=== PATIENT | male | born 1940 | race Caucasian/White ===

== ENCOUNTER 2018-04-23 19:02 | Emergency (ER) | payer OTHER ==
--- NOTE | 2018-04-23 20:35 | EDPHYS ---
Physician Documentation [facility] Name: John Matias Age: 77 yrs Sex: Male : 1940 Arrival Date: 04/23/2018 Time: 19:04 Bed 25 Private MD: Cameron Sorenson ED Physician Toby Deng HPI: 04/23 20:29 This 77 yrs old Male presents to ER via Ambulatory with complaints of Blood ps1 Pressure Problem. 20:29 patient has long history of blood pressure. On medications. No symptoms. Concerned ps1 because BP [address] Sorenson. . Historical: - Allergies: 19:20 No Known Allergies; aj - Home Meds: 19:20 oxcarbazepine 300 mg oral tab 1 tab 2 times per day [Active]; loratadine 10 mg oral tab aj 1 tab once daily [Active]; pravastatin 40 mg oral tab 1 tab once daily [Active]; losartan 100 mg oral tab 1 tab once daily [Active]; - PMHx: 19:20 CVA; Hypertension; aj - Immunization history:: Adult Immunizations up to date. - Social history:: Smoking status: Patient/guardian denies using tobacco. - Ebola Screening: : Patient negative for fever greater than or equal to 101.5 degrees Fahrenheit, and additional compatible Ebola Virus Disease symptoms Patient denies exposure to infectious person Patient denies travel to an Ebola-affected area in the 21 days before illness onset No symptoms or risks identified at this time. ROS: 20:29 Constitutional: Negative for fever, chills, and weight loss, Eyes: Negative for injury, ps1 pain, redness, and discharge, Cardiovascular: Negative for chest pain, palpitations, and edema, Respiratory: Negative for shortness of breath, cough, wheezing, and pleuritic chest pain, Abdomen/GI: Negative for abdominal pain, nausea, vomiting, diarrhea, and constipation, MS/Extremity: Negative for injury and deformity, Skin: Negative for injury, rash, and discoloration, Neuro: Negative for headache, weakness, numbness, tingling, and seizure, Psych: Negative for depression, anxiety, suicide ideation, homicidal ideation, and hallucinations. Exam: 20:29 Constitutional: This is a well developed, well nourished patient who is awake, alert, ps1 and in no acute distress. Head/Face: Normocephalic, atraumatic. Eyes: Pupils equal round and reactive to light, extra-ocular motions intact. Lids and lashes normal. Conjunctiva and sclera are non-icteric and not injected. Chest/axilla: Normal chest wall appearance and motion. Nontender with no deformity. No lesions are appreciated. Cardiovascular: Regular rate and rhythm. No gallops, murmurs, or rubs. Normal PMI, no JVD. No pulse deficits. Respiratory: Lungs have equal breath sounds bilaterally, clear to auscultation and percussion. No rales, rhonchi or wheezes noted. No increased work of breathing, no retractions or nasal flaring. Abdomen/GI: Soft, non-tender, with normal bowel sounds. No distension or tympany. No guarding or rebound. No evidence of tenderness throughout. Skin: Warm, dry with normal turgor. Normal color with no rashes, no lesions, and no evidence of cellulitis. MS/ Extremity: Pulses equal, no cyanosis. Neurovascular intact. Full, normal range of motion. Neuro: Awake and alert, GCS 15, oriented to person, place, time, and situation. Cranial nerves II-XII grossly intact. Sensory grossly intact. Psych: Awake, alert, with orientation to person, place and time. Behavior, mood, and affect are within normal limits. Vital Signs: 19:20 BP 177 / 88; Pulse 76; Resp 15; Temp 98.5; Pulse Ox 96% on R/A; Weight 77.11 kg; Height aj 5 ft. 5 in. (165.10 cm); 19:40 BP 162 / 79; Pulse 74; Resp 18; Pulse Ox 100% ; tl3 20:47 BP 180 / 95; Pulse 61; Resp 18; Pulse Ox 98% on R/A; tl3 19:20 Body Mass Index 28.29 (77.11 kg, 165.10 cm) aj MDM: 20:29 Data reviewed: vital signs, nurses notes. Counseling: I had a detailed discussion with ps1 the patient and/or guardian regarding: the historical points, exam findings, and any diagnostic results supporting the discharge/admit diagnosis, the presence of at least one elevated blood pressure reading (>120/80) during this emergency department visit. 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 . 20:35 Patient medically screened. ps1 Administered Medications: No medications were administered Disposition: 04/23/18 20:35 Discharged to Home. Impression: Asymptomatic hypertension. - Condition is Stable. - Discharge Instructions: Hypertension. - Medication Reconciliation Form, Thank You Letter, Antibiotic Education, Prescription Opioid Use form. - Follow up: Cameron Sorenson MD; When: 1 week; Reason: Recheck today's complaints, Continuance of care, Re-evaluation by your physician. Follow up: Emergency Department; When: As needed; Reason: Worsening of condition. - Problem is chronic. - Symptoms have worsened. Signatures: Tanya Burden, RN RN aj Toby Deng MD MD ps1 Genny Rahman RN RN tl3 Corrections: (The following items were deleted from the chart) 20:48 20:35 04/23/2018 20:35 Discharged to Home. Impression: Asymptomatic hypertension. tl3 Condition is Stable. Forms are Medication Reconciliation Form, Thank You Letter, Antibiotic Education, Prescription Opioid Use. Follow up: Cameron Sorenson; When: 1 week; Reason: Recheck today's complaints, Continuance of care, Re-evaluation by your physician. Follow up: Emergency Department; When: As needed; Reason: Worsening of condition. Problem is chronic. Symptoms have worsened. ps1
--- NOTE | 2018-04-23 20:35 | ER ---
Nurse's Notes [facility] Name: John Matias Age: 77 yrs Sex: Male : 1940 Arrival Date: 04/23/2018 Time: 19:04 Bed 25 Private MD: Cameron Sorenson Diagnosis: Asymptomatic hypertension Presentation: 04/23 19:18 Presenting complaint: Patient states: High blood pressure readings at home. Transition aj of care: patient was not received from another setting of care. Onset of symptoms was April 21, 2018. Risk Assessment: Do you want to hurt yourself or someone else? Patient reports no desire to harm self or others. Initial Sepsis Screen: Does the patient meet any 2 criteria? No. Patient's initial sepsis screen is negative. Does the patient have a suspected source of infection? No. Patient's initial sepsis screen is negative. Care prior to arrival: None. 19:18 Method Of Arrival: Ambulatory aj 19:18 Acuity: AGATHA 3 aj Triage Assessment: 19:20 General: Appears in no apparent distress. comfortable, Behavior is calm, cooperative, aj appropriate for age. Pain: Denies pain. Neuro: Level of Consciousness is awake, alert, obeys commands, Oriented to person, place, time, situation, Appropriate for age. Respiratory: Airway is patent Respiratory effort is even, unlabored, Respiratory pattern is regular, symmetrical. Derm: Skin is intact, is healthy with good turgor, Skin is pink, warm \\T\\ dry. normal. Historical: - Allergies: 19:20 No Known Allergies; aj - Home Meds: 19:20 oxcarbazepine 300 mg oral tab 1 tab 2 times per day [Active]; loratadine 10 mg oral tab aj 1 tab once daily [Active]; pravastatin 40 mg oral tab 1 tab once daily [Active]; losartan 100 mg oral tab 1 tab once daily [Active]; - PMHx: 19:20 CVA; Hypertension; aj - Immunization history:: Adult Immunizations up to date. - Social history:: Smoking status: Patient/guardian denies using tobacco. - Ebola Screening: : Patient negative for fever greater than or equal to 101.5 degrees Fahrenheit, and additional compatible Ebola Virus Disease symptoms Patient denies exposure to infectious person Patient denies travel to an Ebola-affected area in the 21 days before illness onset No symptoms or risks identified at this time. Screenin:40 Abuse screen: Denies threats or abuse. Nutritional screening: No deficits noted. tl3 Tuberculosis screening: No symptoms or risk factors identified. Fall Risk None identified. Assessment: 19:40 General: Appears in no apparent distress. comfortable, slender, well groomed, well tl3 developed, well nourished, Behavior is calm, cooperative, appropriate for age. Pain: Denies pain. Neuro: Level of Consciousness is awake, alert, obeys commands. Cardiovascular: Patient's skin is warm and dry. Cardiovascular: Parent/caregiver reports patient has had reports that they have been watching TV today, eating snacks and checking the pts blood pressure, it was going up and down and the "bottom number was in the 90's " so they decided to come and get it checked out. Respiratory: Airway is patent Respiratory effort is even, unlabored, Respiratory pattern is regular, symmetrical. GI: No signs and/or symptoms were reported involving the gastrointestinal system. : No deficits noted. EENT: No signs and/or symptoms were reported regarding the EENT system. Derm: No signs and/or symptoms reported regarding the dermatologic system. Musculoskeletal: No signs and/or symptoms reported regarding the musculoskeletal system. 20:47 Reassessment: Patient appears in no apparent distress at this time. No changes from tl3 previously documented assessment. Patient and/or family updated on plan of care and expected duration. Pain level reassessed. Patient is alert, oriented x 3, equal unlabored respirations, skin warm/dry/pink. Vital Signs: 19:20 BP 177 / 88; Pulse 76; Resp 15; Temp 98.5; Pulse Ox 96% on R/A; Weight 77.11 kg; Height aj 5 ft. 5 in. (165.10 cm); 19:40 BP 162 / 79; Pulse 74; Resp 18; Pulse Ox 100% ; tl3 20:47 BP 180 / 95; Pulse 61; Resp 18; Pulse Ox 98% on R/A; tl3 19:20 Body Mass Index 28.29 (77.11 kg, 165.10 cm) aj ED Course: 19:04 Patient arrived in ED. am2 19:04 Cameron Sorenson MD is Private Physician. am2 19:18 Triage completed. aj 19:20 Arm band placed on right wrist. Patient placed in an exam room. aj 19:35 Genny Rahman, RN is Primary Nurse. tl3 19:40 Patient has correct armband on for positive identification. Bed in low position. Adult tl3 w/ patient. Pulse ox on. NIBP on. 19:40 No provider procedures requiring assistance completed. tl3 19:48 Toby Deng MD is Attending Physician. ps1 20:35 Cameron Sorenson MD is Referral Physician. ps1 20:47 Patient did not have IV access during this emergency room visit. tl3 Administered Medications: No medications were administered Outcome: 20:35 Discharge ordered by . ps1 20:47 Discharged to home ambulatory. tl3 20:47 Condition: stable 20:47 Discharge instructions given to patient, family, Instructed on discharge instructions, follow up and referral plans. Demonstrated understanding of instructions, follow-up care. 20:48 Patient left the ED. tl3 Signatures: Tanya Burden, RN RN Tanya Davila am2 Toby Deng MD MD ps1 Genny Rahman, RN RN tl3
[2018-04-23 20:57] VITALS: TEMP 98.5
[2018-04-23 20:59] VITALS: BP 180/95; O2SAT 98
== END 2018-04-23 20:48 | disposition home or self-care (01) ==
LOC: ER 19:02
DX: I10 Essential (primary) hypertension (principal)
CPT/HCPCS: 99283

== ENCOUNTER 2018-08-13 06:40 | Emergency (ER) | payer OTHER ==
[2018-08-13 07:49] LABS: ALT/SGPT 24 U/L (12-78); AST/SGOT 19 U/L (15-37); Albumin 3.5 g/dL (3.4-5.0); Alkaline Phosphatase 76 U/L (45-117); BUN Blood Urea Nitrogen 19 mg/dL (7-18); Bicarbonate 20 mmol/L (21-32); Bilirubin Direct 0.2 mg/dL (0-0.2); Bilirubin Total 0.6 mg/dL (0.2-1.0); CKMB Creatine Kinase MB 3.4 ng/mL (0.3-3.6); Creatine Phosphokinase 166 U/L (39-308); Glucose Level 131 mg/dL (74-106); Lipase 144 U/L (73-393); Potassium 3.6 mmol/L (3.5-5.1); Protein, Total 7.1 g/dL (6.4-8.2); Sodium Level 140 mmol/L (136-145); Troponin (Emerg Dept Use Only) < 0.02 ng/mL (0.0-0.045)
--- NOTE | 2018-08-13 07:59 | RAD REPORT ---
EXAM DESCRIPTION: CT - Head Brain Wo Cont - 08/13/2018 7:14 am CLINICAL HISTORY: SEIZURE History of CVA COMPARISON: HEAD BRAIN W O CONTRAST dated 09/12/2015; HEAD BRAIN W O CONTRAST dated 09/16/2009 TECHNIQUE: All CT scans are performed using dose optimization technique as appropriate and may inclu de automated exposure control or mA/KV adjustment according to patient size. FINDINGS: No intracranial hemorrhage, hydrocephalus or extra-axial fluid collection.Large area of gl iosis in the distribution of the left MCA noted, unchanged.No areas of brain edema or evidence of mid line shift. The paranasal sinuses and mastoids are clear. The calvarium is intact. IMPRESSION: No acute intracranial abnormality. 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
[2018-08-13 08:01] LABS: Absolute Lymphocytes (CBC) 1.6 K/uL (0.7-4.9); Absolute Monocytes 0.8 K/uL (0.1-1.3); Absolute Neutrophil 5.1 K/uL (1.8-8.0); Basophils % 0.7 % (0-1.3); Eosinophils % 3.3 % (0-4.4); Lymphocytes % 20.7 % (15.3-44.8); MCV 98.9 fL (80-100); MPV 9.1 fL (7.6-11.3); Monocytes % 10.7 % (3.3-12.3); RBC Red Blood Cell Count 4.45 M/uL (4.33-5.43)
[2018-08-13 08:05] LABS: Protime INR 0.99
[2018-08-13] MEDS ORDERED: NA CHLORIDE 0.9% 500 ML ONE (08:30)
--- NOTE | 2018-08-13 08:59 | ER ---
Nurse's Notes [facility] Name: John Matias Age: 78 yrs Sex: Male : 1940 Arrival Date: 08/13/2018 Time: 06:43 Bed 7 Private MD: Diagnosis: Convulsions, not elsewhere classified-seizure Presentation: 08/13 06:30 Presenting complaint: EMS states: EMS called to pt's home, pt's reported pt was ea sitting up in fell to the floor and started having a seizure, reported seizure lasted about 1 minute, reported last seizure was about 5 years ago. Transition of care: patient was not received from another setting of care. Onset of symptoms was August 13, 2018. Risk Assessment: Do you want to hurt yourself or someone else? Patient reports no desire to harm self or others. Initial Sepsis Screen: Does the patient meet any 2 criteria? No. Patient's initial sepsis screen is negative. Does the patient have a suspected source of infection? No. Patient's initial sepsis screen is negative. Care prior to arrival: None. 06:30 Method Of Arrival: EMS: [facility] ea 06:30 Acuity: AGATHA 3 ea Triage Assessment: 06:51 General: Appears in no apparent distress. Behavior is calm. Pain: Unable to use pain ea scale. FLACC scale score is 2 out of 10. Neuro: Level of Consciousness is groggy. Oriented to pt is aphasic. Neuro: Seizure activity reported prior to arrival. Seizure lasted approximately 1 minutes. Cardiovascular: Patient's skin is warm and dry. Respiratory: Airway is patent Respiratory effort is even, unlabored, Respiratory pattern is regular, symmetrical, Breath sounds are clear bilaterally. Derm: Skin is pale. Historical: - Allergies: 06:48 No Known Allergies; ea - Home Meds: 06:48 loratadine 10 mg Oral tab 1 tab once daily [Active]; losartan 100 mg Oral tab 1 tab ea once daily [Active]; oxcarbazepine 300 mg Oral tab 1 tab 2 times per day [Active]; pravastatin 40 mg Oral tab 1 tab once daily [Active]; - PMHx: 06:48 CVA; Hypertension; ea - Immunization history:: Adult Immunizations up to date. - Social history:: Smoking status: denies smoking. - Ebola Screening: : No symptoms or risks identified at this time. Screenin:56 Abuse screen: Denies threats or abuse. Nutritional screening: No deficits noted. ea Tuberculosis screening: No symptoms or risk factors identified. Fall Risk None identified. Assessment: 07:10 General: Appears in no apparent distress. comfortable, Behavior is calm, cooperative. ca1 Pain: Denies pain. Neuro: Level of Consciousness is awake, alert, obeys commands, Oriented to none Concrete Buster Operator are equal bilaterally Moves all extremities. Speech with expressive aphasia noted, Facial symmetry appears normal, Facial symmetry: tongue is midline, Pupils are PERRLA, Intact. Cardiovascular: Heart tones S1 S2 present Rhythm is regular. 07:10 Respiratory: Airway is patent Trachea midline Respiratory effort is even, unlabored, ca1 Respiratory pattern is regular, symmetrical, Breath sounds are clear bilaterally. GI: Abdomen is round Bowel sounds present X 4 quads. Abd is soft and non tender X 4 quads. : No signs and/or symptoms were reported regarding the genitourinary system. Derm: Skin is fragile, Skin is dry, Skin is Skin temperature is warm. Musculoskeletal: Circulation, motion, and sensation intact. 08:15 Reassessment: Patient appears in no apparent distress at this time. No neurologic ca1 changes from previous assessment. . 09:02 Reassessment: Patient appears in no apparent distress at this time. No change in ca1 neurologic symptoms. Informed of discharge by MD. Called family for discharge. . Vital Signs: 06:50 BP 163 / 73; Pulse 92; Resp 16; Temp 97(A); Pulse Ox 95% on R/A; Weight 72.57 kg; ea Height 6 ft. 2 in. (187.96 cm); 07:45 BP 132 / 92; Pulse 60; Resp 16; Pulse Ox 92% on R/A; ca1 09:11 BP 141 / 65; Pulse 56; Resp 16; Pulse Ox 96% on R/A; ca1 09:45 BP 142 / 75; Pulse 61; Resp 17 S; Pulse Ox 95% on R/A; ca1 06:50 Body Mass Index 20.54 (72.57 kg, 187.96 cm) ea Weston Coma Score: 06:51 Eye Response: spontaneous(4). Verbal Response: none(1). Motor Response: localizes ea pain(5). Total: 10. 06:51 pt aphasic ea ED Course: 06:43 Patient arrived in ED. ds1 06:46 Triage completed. ea 06:50 Funmi Kruse FNP-C [facility]. snw 06:50 Diaz Harrington MD is Attending Physician. snw 06:57 Arm band placed on right wrist. ea 06:57 Patient has correct armband on for positive identification. Bed in low position. Call ea light in reach. Side rails up X2. 07:00 Seizure precautions initiated. ca1 07:00 environmental monitoring specialist on. Pulse ox on. NIBP on. Door closed. Noise minimized. Warm blanket ca1 given. 07:08 Harmony Elizondo, RN is Primary Nurse. ca1 07:[address] via stretcher. ca1 07:15 CT Head Brain wo Cont In Process Unspecified. EDMS 07:20 Chest Single View XRAY In Process Unspecified. EDMS 07:20 Inserted saline lock: 18 gauge in left antecubital area, using aseptic technique. Blood ds4 collected. 07:28 EKG done, by ED staff, reviewed by Diaz Harrington MD. mh5 07:29 T\T\S Sent. mh5 07:29 Basic Metabolic Panel Sent. mh5 07:29 Blood Culture Adult (2) Sent. mh5 07:29 CBC with Diff Sent. mh5 07:29 Ckmb Sent. mh5 07:29 CPK Sent. mh5 07:29 Lactate Sent. mh5 07:29 LFT's Sent. mh5 07:29 Lipase Sent. mh5 07:29 Procalcitonin Sent. mh5 07:29 Protime (+inr) Sent. mh5 07:30 Ptt, Activated Sent. mh5 07:30 Troponin (emerg Dept Use Only) Sent. mh5 07:30 Urine Microscopic Only Sent. mh5 08:20 Notified Nurse Practitioner and/or Physician Insurance Sales Specialist of a critical lab result(s), ca1 Lactate 5.6. 09:45 No provider procedures requiring assistance completed. IV discontinued, intact, ca1 bleeding controlled, No redness/swelling at site. Pressure dressing applied. Administered Medications: 08:30 Drug: NS 0.9% 500 ml Route: IV; Rate: bolus; Site: left antecubital; ca1 08:45 Follow up: IV Status: Completed infusion; IV Intake: 500ml ca1 Point of Care Testing: Blood Glucose: 07:37 Blood Glucose: 123 mg/dL; mh5 Ranges: Intake: 08:45 IV: 500ml; Total: 500ml. ca1 Outcome: 08:58 Discharge ordered by MD. luna 09:45 Discharged to home via wheelchair, with . ca1 09:45 Condition: stable 09:45 Discharge instructions given to patient, Instructed on discharge instructions, follow up and referral plans. Demonstrated understanding of instructions, follow-up care. 10:07 Patient left the ED. ca1 Signatures: Dispatcher [employer] EDMS Funmi Kruse, AIRCRAFT MAINTENANCE INSTRUCTOR-C AIRCRAFT MAINTENANCE INSTRUCTOR-Csnw Ashwini Hay ds1 Aureliano Harrell ds4 Chloé Campa 5 Laila Vásquez RN RN ea Acob, Cheryl, RN RN ca1 Corrections: (The following items were deleted from the chart) 09:13 08:15 Reassessment: Patient appears in no apparent distress at this time. . ca1 ca1
--- NOTE | 2018-08-13 08:59 | EDPHYS ---
Physician Documentation [facility] Name: John Matias Age: 78 yrs Sex: Male : 1940 Arrival Date: 08/13/2018 Time: 06:43 Bed 7 Private MD: ED Physician Diaz Harrington HPI: 08/13 06:58 This 78 yrs old Male presents to ER via EMS with complaints of Seizure. snw 06:58 The patient presents after having a single isolated seizure. Character of seizure(s): snw Loss of consciousness: the patient did not lose consciousness, Motor activity: generalized, Incontinence: none, Apnea: the patient did not experience apnea, Circulation: the patient did not experience evidence of pulse disturbance. Seizure onset: this morning. Context: the seizure(s) was witnessed, by family, , occurred at home. Seizure Hx: Last seizure: The patient's last seizure was approximately 3 year(s) ago, CVA 9 yrs ago. Associated injury: The patient did not suffer any apparent associated injury. EMS care: supplemental oxygen. The patient has experienced a previous episode. It is unknown whether or not the patient has recently seen a physician. Historical: - Allergies: 06:48 No Known Allergies; ea - Home Meds: 06:48 loratadine 10 mg Oral tab 1 tab once daily [Active]; losartan 100 mg Oral tab 1 tab ea once daily [Active]; oxcarbazepine 300 mg Oral tab 1 tab 2 times per day [Active]; pravastatin 40 mg Oral tab 1 tab once daily [Active]; - PMHx: 06:48 CVA; Hypertension; ea - Immunization history:: Adult Immunizations up to date. - Social history:: Smoking status: denies smoking. - Ebola Screening: : No symptoms or risks identified at this time. ROS: 06:57 Constitutional: Negative for fever, chills, and weight loss, Eyes: Negative for injury, snw pain, redness, and discharge, ENT: Negative for injury, pain, and discharge, Neck: Negative for injury, pain, and swelling, Cardiovascular: Negative for chest pain, palpitations, and edema, Respiratory: Negative for shortness of breath, cough, wheezing, and pleuritic chest pain, Abdomen/GI: Negative for abdominal pain, nausea, vomiting, diarrhea, and constipation, Back: Negative for injury and pain, : Negative for injury, bleeding, discharge, and swelling, MS/Extremity: Negative for injury and deformity, Skin: Negative for injury, rash, and discoloration. 06:57 Neuro: Positive for seizure activity, per Spouse, EMS toned, EMS states pt is much more alert on arrival to ED. Exam: 06:53 Head/Face: Normocephalic, atraumatic. Eyes: Pupils equal round and reactive to light, snw extra-ocular motions intact. Lids and lashes normal. Conjunctiva and sclera are non-icteric and not injected. Cornea within normal limits. Periorbital areas with no swelling, redness, or edema. ENT: Nares patent. No nasal discharge, no septal abnormalities noted. Tympanic membranes are normal and external auditory canals are clear. Oropharynx with no redness, swelling, or masses, exudates, or evidence of obstruction, uvula midline. Mucous membranes moist. Neck: Trachea midline, no thyromegaly or masses palpated, and no cervical lymphadenopathy. Supple, full range of motion without nuchal rigidity, or vertebral point tenderness. No Meningismus. Chest/axilla: Normal chest wall appearance and motion. Nontender with no deformity. No lesions are appreciated. Cardiovascular: Regular rate and rhythm with a normal S1 and S2. No gallops, murmurs, or rubs. Normal PMI, no JVD. No pulse deficits. Respiratory: Lungs have equal breath sounds bilaterally, clear to auscultation and percussion. No rales, rhonchi or wheezes noted. No increased work of breathing, no retractions or nasal flaring. 06:53 Constitutional: The patient appears awake, blinking, non communicative at this time 06:56 Abdomen/GI: Soft, non-tender, with normal bowel sounds. No distension or tympany. No snw guarding or rebound. No evidence of tenderness throughout. Back: No spinal tenderness. No costovertebral tenderness. Full range of motion. Skin: Warm, dry with normal turgor. Normal color with no rashes, no lesions, and no evidence of cellulitis. MS/ Extremity: Pulses equal, no cyanosis. Neurovascular intact. Full, normal range of motion. 06:56 Neuro: Orientation: unable to test, the patient is post-ictal, Mentation: slow to respond, Memory: unable to test, the patient is post-ictal, Sensation: is normal, seizure activity, is not displayed by the patient, is not currently displayed, but the patient is post-ictal. Vital Signs: 06:50 BP 163 / 73; Pulse 92; Resp 16; Temp 97(A); Pulse Ox 95% on R/A; Weight 72.57 kg; ea Height 6 ft. 2 in. (187.96 cm); 07:45 BP 132 / 92; Pulse 60; Resp 16; Pulse Ox 92% on R/A; ca1 09:11 BP 141 / 65; Pulse 56; Resp 16; Pulse Ox 96% on R/A; ca1 09:45 BP 142 / 75; Pulse 61; Resp 17 S; Pulse Ox 95% on R/A; ca1 06:50 Body Mass Index 20.54 (72.57 kg, 187.96 cm) ea Wayne Coma Score: 06:51 Eye Response: spontaneous(4). Verbal Response: none(1). Motor Response: localizes ea pain(5). Total: 10. 06:51 pt aphasic ea MDM: 06:53 Patient medically screened. snw 11:22 Data reviewed: vital signs, nurses notes. Data interpreted: Pulse oximetry: on room air snw is 95 %. Interpretation: acceptable. Counseling: I had a detailed discussion with the patient and/or guardian regarding: the historical points, exam findings, and any diagnostic results supporting the discharge/admit diagnosis, the presence of at least one elevated blood pressure reading (>120/80) during this emergency department visit, lab results, radiology results, the need for outpatient follow up, to return to the emergency department if symptoms worsen or persist or if there are any questions or concerns that arise at home. Special discussion: Based on the history and exam findings, there is no indication for further emergent testing or inpatient evaluation. I discussed with the patient/guardian the need to see the neurologist for further evaluation of the symptoms. I discussed with the patient/guardian the need to see the primary care provider for further evaluation of the symptoms. 08/13 06:52 Order name: T\T\S; Complete Time: 09:24 snw 08/13 06:52 Order name: Basic Metabolic Panel; Complete Time: 08:18 snw 08/13 06:52 Order name: Blood Culture Adult (2) snw 12/09 06:52 Order name: CBC with Diff; Complete Time: 08:18 snw 08/13 06:52 Order name: Ckmb; Complete Time: 08:18 snw 08/13 06:52 Order name: CPK; Complete Time: 08:18 snw 08/13 06:52 Order name: Lactate; Complete Time: 08:18 snw 08/13 06:52 Order name: LFT's; Complete Time: 08:18 snw 08/13 06:52 Order name: Lipase; Complete Time: 08:18 snw 08/13 06:52 Order name: Procalcitonin snw 08/13 06:52 Order name: Protime (+inr); Complete Time: 08:18 snw 08/13 06:52 Order name: Ptt, Activated; Complete Time: 08:18 snw 08/13 06:52 Order name: Troponin (emerg Dept Use Only); Complete Time: 08:18 snw 08/13 06:52 Order name: Chest Single View XRAY w 08/13 06:52 Order name: Accucheck; Complete Time: 08:05 snw 08/13 06:52 Order name: Cardiac monitoring; Complete Time: 07:17 snw 08/13 06:52 Order name: EKG - Nurse/Tech; Complete Time: 08:05 snw 08/13 06:52 Order name: IV Saline Lock - Large Bore; Complete Time: 08:05 snw 08/13 06:52 Order name: Labs collected and sent; Complete Time: 08:05 snw 08/13 06:52 Order name: O2 Per Protocol; Complete Time: 08:05 snw 08/13 06:52 Order name: O2 Sat Monitoring; Complete Time: 08:05 snw 08/13 06:52 Order name: CT Head Brain wo Cont; Complete Time: 08:18 snw 08/13 06:52 Order name: Seizure Precautions; Complete Time: 07:18 snw Administered Medications: 08:30 Drug: NS 0.9% 500 ml Route: IV; Rate: bolus; Site: left antecubital; ca1 08:45 Follow up: IV Status: Completed infusion; IV Intake: 500ml ca1 Point of Care Testing: Blood Glucose: 07:37 Blood Glucose: 123 mg/dL; mh5 Ranges: Critical Glucose Levels:Adult <50 mg/dl or >400 mg/dl <40 mg/dl or >180 mg/dl Disposition: 08/14 06:32 Co-signature as Attending Physician, Diaz Harrington MD I agree with the assessment and [facility] plan of care. Disposition: 08/13/18 08:58 Discharged to Home. Impression: Convulsions, not elsewhere classified - seizure. - Condition is Stable. - Discharge Instructions: Seizure, Adult. - Medication Reconciliation Form, Thank You Letter, Antibiotic Education, Prescription Opioid Use form. - Follow up: Private Physician; When: Tomorrow; Reason: Recheck today's complaints, Continuance of care, Re-evaluation by your physician. Follow up: Emergency Department; When: As needed; Reason: Worsening of condition. Signatures: Dispatcher [employer] EDMS Diaz Harrington MD MD cha Therrien, Shelly, TUBING ASSEMBLER-C TUBING ASSEMBLER-Csnw Laila Vásquez, RN RN ea Harmony Elizondo RN RN ca1 Corrections: (The following items were deleted from the chart) 08/13 06:57 06:53 Constitutional: The patient appears awake, snw snw 06:57 06:53 Abdomen/GI: Inspection: abdomen appears normal, Bowel sounds: normal, in all snw quadrants, suprapubic area with stoma, no noted signs of infection, no bleeding. 16F mcallister brought per EMS with balloon still intact. Replaced with 16F mcallister per photo technologist without difficulty. Cloudy urine returned, snw 10:07 08:58 08/13/2018 08:58 Discharged to Home. Impression: Convulsions, not elsewhere ca1 classified - seizure. Condition is Stable. Forms are Medication Reconciliation Form, Thank You Letter, Antibiotic Education, Prescription Opioid Use. Follow up: Private Physician; When: Tomorrow; Reason: Recheck today's complaints, Continuance of care, Re-evaluation by your physician. Follow up: Emergency Department; When: As needed; Reason: Worsening of condition. snw
[2018-08-13 10:12] VITALS: TEMP 97
[2018-08-13 10:17] VITALS: BP 132/92; O2SAT 92
--- NOTE | 2018-08-13 10:55 | RAD REPORT ---
EXAM DESCRIPTION: RAD - Chest Single View - 08/13/2018 7:21 am CLINICAL HISTORY: seizure Chest pain. COMPARISON: CHEST SINGLE VIEW dated 09/12/2015; CHEST SINGLE VIEW dated 08/24/2014; CHEST PA AND LAT 2 VIEW dated 01/27/2011; CHEST SINGLE VIEW dated 09/16/2009 FINDINGS: Portable technique limits examination quality. Patchy airspace opacity is present in the left lower lobe suspicious for infiltrate/pneumonia. Mild i nterstitial pulmonary edema is also suspected. The heart is normal in size. No displaced fractures. IMPRESSION: Patchy left lower lobe aspiration/developing pneumonia.
--- NOTE | 2018-08-14 11:37 | EKG ---
Test Date: 2018-08-13 Test Time: 07:25:54 Asphalt Plant Worker: MOY MEASUREMENT RESULTS: Intervals: Rate: 74 IA: 146 QRSD: 84 QT: 372 QTc: 412 [place]: P: 26 IA: 146 QRS: -31 T: 7 INTERPRETIVE STATEMENTS: Sinus rhythm with premature atrial complexes Left axis deviation Inferior infarct, age undetermined Anterior infarct, age undetermined Abnormal ECG Compared to ECG 09/13/2015 06:42:25 Atrial premature complex(es) now present Left-axis deviation now present Myocardial infarct finding now present Electronically Signed On 08-14-18 11:36:29 LOSS CONTROL MANAGER by James Finn
== END 2018-08-13 10:07 | disposition home or self-care (01) ==
LOC: ER 06:40
DX: R56.9 Unspecified convulsions (principal); I49.1 Atrial premature depolarization; R94.31 Abnormal electrocardiogram [ECG] [EKG]; I10 Essential (primary) hypertension; Z79.899 Other long term (current) drug therapy; Z86.73 Personal history of transient ischemic attack (TIA), and cerebral infarction without residual deficits
CPT/HCPCS: 36415; 70450; 71045; 80048; 80076; 82550; 82553; 82962; 83605; 83690; 84145; 84484; 85025; 85610; 85730; 86850; 86900; 86901; 87040; 93005; 99285

== ENCOUNTER 2019-04-23 21:53 | Emergency (ER) | payer OTHER ==
--- NOTE | 2019-04-23 23:51 | ER ---
Nurse's Notes [facility] Name: John Matias Age: 78 yrs Sex: Male : 1940 Arrival Date: 04/23/2019 Time: 21:57 Bed 23 Private MD: Cameron Sorenson Diagnosis: Fall on same level from slipping, tripping and stumbling Presentation: 04/23 22:09 Presenting complaint: states: HE HURT HIS RIGHT LEG LAST WEEK. I NOTICED HE WAS rv HAVING TROUBLE WALKING SINCE LAST WEEK. TODAY HE CAN'T WALK AT ALL. HE CAN STAND UP BUT STRUGGLING WITH VERY SMALL STEPS. HE HAD A STROKE BEFORE AND AFTER THAT HE HAD TROUBLE TALKING. HE IS DUE FOR APPOINTMENT ON TUESDAY BECAUSE HIS DOCTOR THINKS IT IS DEMENTIA. Transition of care: patient was not received from another setting of care. Onset of symptoms was April 23, 2019 at 08:00. Risk Assessment: Do you want to hurt yourself or someone else? Patient reports no desire to harm self or others. Initial Sepsis Screen: Does the patient meet any 2 criteria? No. Patient's initial sepsis screen is negative. Does the patient have a suspected source of infection? No. Patient's initial sepsis screen is negative. Care prior to arrival: None. 22:09 Method Of Arrival: Wheelchair rv 22:09 Acuity: AGATHA 3 rv Triage Assessment: 22:19 Pain: Complains of pain in right leg and left leg. rv Historical: - Allergies: 22:19 No Known Allergies; rv - Home Meds: 22:18 oxcarbazepine 300 mg Oral tab 1 tab 2 times per day [Active]; losartan 100 mg Oral tab rv 1 tab once daily [Active]; amlodipine 10 mg tab 1 tab once daily [Active]; pravastatin 40 mg Oral tab 1 tab once daily [Active]; - PMHx: 22:18 CVA; Hypertension; mg2 22:18 CVA; Hypertension; Seizures; rv - PSHx: 22:18 Cholecystectomy; Carotid surgery; rv - Immunization history:: Adult Immunizations up to date. - Social history:: Smoking status: Patient/guardian denies using tobacco, never smoked. - Ebola Screening: : No symptoms or risks identified at this time No symptoms or risks identified at this time. Screenin:16 Abuse screen: Denies threats or abuse. Denies injuries from another. Nutritional mg2 screening: No deficits noted. Tuberculosis screening: No symptoms or risk factors identified. Fall Risk Gait- Weak (10 pts.). Assessment: 22:15 General: Appears in no apparent distress. comfortable, Behavior is calm, cooperative. mg2 Neuro: Level of Consciousness is awake, alert, obeys commands, Oriented to. Cardiovascular: Capillary refill < 3 seconds Patient's skin is warm and dry. Respiratory: Airway is patent Respiratory effort is even, unlabored, Respiratory pattern is regular, symmetrical. GI: No signs and/or symptoms were reported involving the gastrointestinal system. : No signs and/or symptoms were reported regarding the genitourinary system. EENT: No signs and/or symptoms were reported regarding the EENT system. Derm: Skin is intact, is healthy with good turgor, Skin is pink, warm \T\ dry. normal. Musculoskeletal: Circulation, motion, and sensation intact. Capillary refill < 3 seconds. Vital Signs: 22:12 BP 146 / 88; Pulse 74; Resp 16; Temp 98.2; Pulse Ox 96% on R/A; Weight 77.11 kg (R); rv Height 5 ft. 5 in. (165.10 cm) (R); 04/24 00:03 BP 142 / 85; Pulse 76; Resp 16; Temp 98; Pulse Ox 97% on R/A; rv 04/23 22:12 Body Mass Index 28.29 (77.11 kg, 165.10 cm) rv ED Course: 04/23 21:57 Patient arrived in ED. cl3 21:58 Cameron Sorenson MD is Private Physician. cl3 22:01 Diaz Hooker PA is PHCP. cp 22:01 Diaz Harrington MD is Attending Physician. cp 22:02 Sudhakar Sanchez, MISHA is Primary Nurse. mg2 22:12 Triage completed. rv 22:14 Arm band placed on. mg2 22:15 No provider procedures requiring assistance completed. mg2 22:19 Patient has correct armband on for positive identification. Bed in low position. Call rv light in reach. Side rails up X 1. Adult w/ patient. phototypesetting equipment monitor on. Pulse ox on. NIBP on. 22:45 Hip Bilateral With Pelvis In Process Unspecified. EDMS 04/24 00:04 Patient did not have IV access during this emergency room visit. rv Administered Medications: No medications were administered Intake: Outcome: 04/23 23:50 Discharge ordered by . caitlyn 04/24 00:03 Discharged to home via wheelchair, with family. rv Condition: good Discharge instructions given to patient, family, Instructed on discharge instructions, follow up and referral plans. Demonstrated understanding of instructions, follow-up care. 00:04 Patient left the ED. rv Signatures: Dispatcher [employer] EDMS Diaz Hooker PA PA cp [place], Michele, RN RN mg2 Vicente, Ronaldo, RN RN rv Es Dey cl3
--- NOTE | 2019-04-23 23:52 | EDPHYS ---
Physician Documentation [facility] Name: John Matias Age: 78 yrs Sex: Male : 1940 Arrival Date: 04/23/2019 Time: 21:57 Bed 23 Private MD: Cameron Sorenson ED Physician Diaz Harrington HPI: 04/23 22:35 This 78 yrs old Male presents to ER via Wheelchair with complaints of Leg cp Pain. 22:35 Details of fall: The patient fell from an upright position, while walking. cp 22:35 Associated injuries: The patient sustained left leg, painful injury. Severity of cp symptoms: in the emergency department the symptoms are unchanged. reports she has noticed patient with unsteady gait since recent falls. reports patient fell again today and landed on left side. Historical: - Allergies: 22:19 No Known Allergies; rv - Home Meds: 22:18 oxcarbazepine 300 mg Oral tab 1 tab 2 times per day [Active]; losartan 100 mg Oral tab rv 1 tab once daily [Active]; amlodipine 10 mg tab 1 tab once daily [Active]; pravastatin 40 mg Oral tab 1 tab once daily [Active]; - PMHx: 22:18 CVA; Hypertension; mg2 22:18 CVA; Hypertension; Seizures; rv - PSHx: 22:18 Cholecystectomy; Carotid surgery; rv - Immunization history:: Adult Immunizations up to date. - Social history:: Smoking status: Patient/guardian denies using tobacco, never smoked. - Ebola Screening: : No symptoms or risks identified at this time No symptoms or risks identified at this time. ROS: 22:45 Constitutional: Negative for body aches, chills, fever, poor PO intake. cp 22:45 Eyes: Negative for injury, pain, redness, and discharge. cp 22:45 ENT: Negative for drainage from ear(s), ear pain, sore throat, difficulty swallowing, difficulty handling secretions. 22:45 Neck: Negative for pain with movement, pain at rest, stiffness, bony tenderness. 22:45 Cardiovascular: Negative for chest pain, palpitations. 22:45 Respiratory: Negative for cough. 22:45 Abdomen/GI: Negative for abdominal pain. 22:45 Back: Negative for decreased range of motion. 22:45 MS/extremity: Negative for decreased range of motion, deformity. 22:45 Neuro: Positive for gait disturbance, Negative for altered mental status. 22:45 All other systems are negative. Exam: 22:50 Constitutional: The patient appears in no acute distress, alert, awake, cp non-diaphoretic, well developed, well nourished. 22:50 Head/Face: Normocephalic, atraumatic. cp 22:50 Eyes: Periorbital structures: appear normal, Conjunctiva: normal, Lids and lashes: appear normal, bilaterally. 22:50 ENT: External ear(s): are unremarkable, Nose: is normal, Mouth: is normal. 22:50 Neck: C-spine: vertebral tenderness, is not appreciated, crepitus, is not appreciated. 22:50 Chest/axilla: Inspection: normal, Palpation: is normal, no crepitus, no tenderness. 22:50 Cardiovascular: Rate: normal, Edema: is not appreciated. 22:50 Respiratory: the patient does not display signs of respiratory distress, Respirations: normal, no use of accessory muscles. 22:50 Abdomen/GI: Inspection: abdomen appears normal, Palpation: abdomen is soft and non-tender, in all quadrants. 22:50 Back: vertebral tenderness, is not appreciated. 22:50 Musculoskeletal/extremity: Extremities: no deformities noted, ROM: intact in all extremities. 22:50 Skin: no rash present. 22:50 Neuro: Orientation: no acute changes, per family, Mentation: no acute changes, per family, Gait: shuffling. Vital Signs: 22:12 BP 146 / 88; Pulse 74; Resp 16; Temp 98.2; Pulse Ox 96% on R/A; Weight 77.11 kg (R); rv Height 5 ft. 5 in. (165.10 cm) (R); 04/24 00:03 BP 142 / 85; Pulse 76; Resp 16; Temp 98; Pulse Ox 97% on R/A; rv 04/23 22:12 Body Mass Index 28.29 (77.11 kg, 165.10 cm) rv MDM: 04/23 22:03 Patient medically screened. leo 22:45 Differential diagnosis: fracture. cp 23:48 Test interpretation: by ED physician or midlevel provider: xrays of pelvis and cp bilateral hips negative for fracture. 23:50 Data reviewed: vital signs, nurses notes, radiologic studies, plain films. cp 23:50 Counseling: I had a detailed discussion with the patient and/or guardian regarding: the cp historical points, exam findings, and any diagnostic results supporting the discharge/admit diagnosis, radiology results, to return to the emergency department if symptoms worsen or persist or if there are any questions or concerns that arise at home. ED course: VSS. Walker given. Will discharge to home for continued monitoring. 04/23 22:35 Order name: Hip Bilateral With Pelvis [facility] 04/23 22:58 Order name: Misc. Order: ambulate patient with walker; Complete Time: 00:04 cp Administered Medications: No medications were administered Disposition: 04/24 07:12 Co-signature as Attending Physician, Diaz Harrington MD I agree with the assessment and [facility] plan of care. Disposition: 04/23/19 23:50 Discharged to Home. Impression: Fall on same level from slipping, tripping and stumbling. - Condition is Stable. - Discharge Instructions: Fall Prevention in the Home, How to Use a Walker. - Medication Reconciliation Form, Thank You Letter, Antibiotic Education, Prescription Opioid Use form. - Follow up: Private Physician; When: 1 - 2 days; Reason: Recheck today's complaints. - Problem is new. - Symptoms have improved. Signatures: Dispatcher [employer] Diaz Gutierrez MD MD cha Page, Corey, PA PA cp Sudhakar Sanchez, MISHA RN mg2 Colt Roche RN RN rv Corrections: (The following items were deleted from the chart) 04/23 22:34 22:19 Pelvis+RAD.RAD.BRZ ordered. [facility] 2234 22:19 Hip Left 2 View+RAD.RAD.BRZ ordered. [facility] 22:34 22:19 Hip Right 2 View+RAD.RAD.BRZ ordered. [facility] 04/24 00:04 04/23 23:50 04/23/2019 23:50 Discharged to Home. Impression: Fall on same level from rv slipping, tripping and stumbling. Condition is Stable. Forms are Medication Reconciliation Form, Thank You Letter, Antibiotic Education, Prescription Opioid Use. Follow up: Private Physician; When: 1 - 2 days; Reason: Recheck today's complaints. Problem is new. Symptoms have improved. cp
[2019-04-24 01:01] VITALS: BP 142/85; TEMP 98; O2SAT 97
--- NOTE | 2019-04-24 08:03 | RAD REPORT ---
EXAM DESCRIPTION: RAD - Hip Bilateral With Pelvis - 04/23/2019 10:43 pm CLINICAL HISTORY: fall Fall, pain COMPARISON: No comparisons FINDINGS: Vague area of lucency is seen in the greater trochanter of the proximal right femur. It is difficult to exclude a subtle fracture in this region. Advise followup CT or MR imaging if the patie nt continues to have difficulty with weight-bearing.
== END 2019-04-24 00:04 | disposition home or self-care (01) ==
LOC: ER 21:53
DX: M25.552 Pain in left hip (principal); W01.0XXA Fall on same level from slipping, tripping and stumbling without subsequent striking against object, initial encounter; Y93.01 Activity, walking, marching and hiking; Y92.9 Unspecified place or not applicable; Z86.73 Personal history of transient ischemic attack (TIA), and cerebral infarction without residual deficits; I10 Essential (primary) hypertension; G40.909 Epilepsy, unspecified, not intractable, without status epilepticus
CPT/HCPCS: 73521; 99284

== ENCOUNTER 2020-04-23 08:39 | Emergency (ER) | payer OTHER ==
[2020-04-23 09:18] LABS: Absolute Lymphocytes (CBC) 1.5 K/uL (0.7-4.9); Basophils % 0.6 % (0-1.3); Hematocrit 43.4 % (39.6-49.0); MPV 8.4 fL (7.6-11.3); RBC Red Blood Cell Count 4.54 M/uL (4.33-5.43)
[2020-04-23 09:22] LABS: Protime INR 1.02
[2020-04-23 09:35] LABS: ALT/SGPT 17 U/L (12-78); AST/SGOT 14 U/L (15-37); Albumin 3.3 g/dL (3.4-5.0); Alkaline Phosphatase 94 U/L (45-117); BUN Blood Urea Nitrogen 23 mg/dL (7-18); Bicarbonate 30 mmol/L (21-32); Bilirubin Direct 0.2 mg/dL (0-0.2); Bilirubin Total 0.6 mg/dL (0.2-1.0); CKMB Creatine Kinase MB 1.1 ng/mL (0.3-3.6); Creatine Phosphokinase 57 U/L (39-308); Glucose Level 131 mg/dL (74-106); Lipase 723 U/L (73-393); Magnesium 2.3 mg/dL (1.8-2.4); Potassium 3.8 mmol/L (3.5-5.1); Protein, Total 7.5 g/dL (6.4-8.2); Sodium Level 142 mmol/L (136-145); Troponin (Emerg Dept Use Only) < 0.02 ng/mL (0.0-0.045)
--- NOTE | 2020-04-23 09:39 | RAD REPORT ---
EXAM DESCRIPTION: CT - Head Brain Wo Cont - 04/23/2020 9:08 am CLINICAL HISTORY: SYNCOPE COMPARISON: Head Brain Wo Cont dated 08/13/2018 TECHNIQUE: Axial 5 mm thick images of the head were obtained without IV contrast. All CT scans are performed using dose optimization technique as appropriate and may include automated exposure control or mA/KV adjustment according to patient size. FINDINGS: No intracranial hemorrhage, mass, edema or shift of mid-line structures. No new cortical e harley or sulcal effacement. 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 This matc hes comparison. There is no midline shift. Ventricles have increased in proportion to the left cerebr al encephalomalacia and the global mild to moderate atrophy. Chronic ischemic changes present but rel atively mild. Intracranial findings are similar to comparison. Mastoid air cells and visualized portions of the paranasal sinuses are clear. No acute bony findings. IMPRESSION: No hemorrhage. No acute intracranial finding. Above detailed findings match the August 2018 study.
--- NOTE | 2020-04-23 11:28 | ER ---
Nurse's Notes [facility] Name: John Matias Age: 79 yrs Sex: Male : 1940 Arrival Date: 04/23/2020 Time: 08:48 Bed 15 Private MD: Diagnosis: Syncope and collapse Presentation: 04/23 08:49 Chief complaint: EMS states: Pt presents via EMS with reports of syncope vs seizure jr10 activity at home, states that was giving pt home meds and he started yelling and waving and fell to the floor; pt has hx of dementia, upon arrival pt disoriented x4, appears in NAD. Coronavirus screen: Client denies travel out of the [place] in the last 14 days. At this time, the client does not indicate any symptoms associated with coronavirus-19. Ebola Screen: No symptoms or risks identified at this time. Initial Sepsis Screen: Does the patient meet any 2 criteria? No. Patient's initial sepsis screen is negative. Does the patient have a suspected source of infection? No. Patient's initial sepsis screen is negative. Risk Assessment: Do you want to hurt yourself or someone else? Unable to obtain. Onset of symptoms was April 23, 2020. 08:49 Method Of Arrival: EMS jr10 08:49 Acuity: AGATHA 3 jr10 Historical: - Allergies: 08:55 No Known Allergies; jr10 - Home Meds: 08:54 amlodipine 10 mg tab 1 tab once daily [Active]; losartan 100 mg Oral tab 1 tab once jr10 daily [Active]; oxcarbazepine 300 mg Oral tab 1 tab 2 times per day [Active]; donepezil 10 mg oral tab [Active]; memantine 5 mg oral tab [Active]; loratadine 10 mg oral tab [Active]; - PMHx: 08:55 CVA; Hypertension; Seizures; jr10 - Immunization history:: Adult Immunizations up to date. - Social history:: Smoking status: unknown. Screenin:10 Abuse screen: Denies threats or abuse. Denies injuries from another. Nutritional jr10 screening: No deficits noted. Tuberculosis screening: No symptoms or risk factors identified. Fall Risk Secondary diagnosis (15 points) seizures, dementia, CVA, IV access (20 points). Gait- Weak (10 pts.). Mental Status- Overestimates/Forgets Limitations (15 pts.). Assessment: 09:08 General: Appears in no apparent distress. Behavior is cooperative. Pain: Denies pain. jr10 Unable to use pain scale. Patient is disoriented. Does not appear to understand pain scale. Neuro: Level of Consciousness is awake, alert, obeys commands, Oriented to none Speech is normal. Cardiovascular: No deficits noted. Rhythm is sinus rhythm. Respiratory: No deficits noted. Airway is patent Respiratory effort is even, unlabored, Respiratory pattern is regular, symmetrical. GI: No deficits noted. 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 EENT: No deficits noted. Derm: No deficits noted. Musculoskeletal: No deficits noted. 11:14 Reassessment: Patient and/or family updated on plan of care and expected duration. Pain jr10 level reassessed. Patient is alert, oriented x 3, equal unlabored respirations, skin warm/dry/pink. pt resting comfortably in bed at present, appears in NAD. Awaiting to bedside for additional information. Pt vitals stable. will continue to monitor and assess. 11:28 Reassessment: pt at bedside. jr10 Vital Signs: 08:49 BP 155 / 65; Pulse 75; Resp 20; Temp 98.2(O); Pulse Ox 97% on R/A; Pain 0/10; jr10 10:02 BP 128 / 64; Pulse 59; Resp 20; Pulse Ox 93% on R/A; jr10 11:13 BP 123 / 64; Pulse 63; Resp 20; Pulse Ox 97% on R/A; jr10 11:59 BP 152 / 84; Pulse 57; Resp 20; Pulse Ox 98% on R/A; Pain 0/10; jr10 ED Course: 08:48 Patient arrived in ED. jr10 08:49 Marlen Bradley, MISHA is Primary Nurse. jr10 08:50 Edith Coy FNP-C is PHCP. kb 08:50 Ravinder Baxter MD is Attending Physician. kb 08:51 Triage completed. jr10 08:55 Arm band placed on. jr10 09:07 CT Head Brain wo Cont In Process Unspecified. EDMS 09:11 Patient has correct armband on for positive identification. Placed in gown. Bed in low jr10 position. Call light in reach. Side rails up X2. property assessment monitor on. Pulse ox on. NIBP on. 09:11 No provider procedures requiring assistance completed. Inserted saline lock: 20 gauge jr10 in right forearm, using aseptic technique. IV is patent, is intact, with good blood return, Flushed. 11:59 IV discontinued, intact, bleeding controlled, No redness/swelling at site. Pressure jr10 dressing applied. Administered Medications: No medications were administered Outcome: 11:28 Discharge ordered by MD. medrano 12:00 Discharged to home via wheelchair, with family, jr10 12:00 Condition: improved 12:00 Discharge instructions given to patient, Instructed on discharge instructions, follow up and referral plans. Demonstrated understanding of instructions, follow-up care. 12:00 Patient left the ED. jr10 Signatures: Dispatcher [employer] EDEdith Burrell, INSTRUCTIONAL SYSTEMS DESIGNER-Aaliyah ALFORDP-Marlen Mireles, RN RN jr10
--- NOTE | 2020-04-23 11:29 | EDPHYS ---
Physician Documentation [facility] Name: John Matias Age: 79 yrs Sex: Male : 1940 Arrival Date: 04/23/2020 Time: 08:48 Bed 15 Private MD: ED Physician Ravinder Baxter HPI: 04/23 09:47 This 79 yrs old Male presents to ER via EMS with complaints of Syncope. kb 09:30 Per EMS, reported she was giving pt his morning meds and he started yelling and kb became upset. States he fell to the floor. Unknown LOC, pt was awake on their arrival to the scene. Pt awake, alert and disoriented. Pt has dementia. Pt denies any pain. States everything is ok and he is good.. 09:47 The patient has not experienced similar symptoms in the past. The patient has not kb recently seen a physician. 11:31 The patient has experienced syncope, collapsed. Onset: The symptoms/episode kb began/occurred just prior to arrival. Duration: This was a single episode, a few seconds. Context: the episode(s) was witnessed, by a significant other, . Associated injury: The patient did not suffer any apparent associated injury. Associated signs and symptoms: Pertinent positives: agitation, Pertinent negatives: abdominal pain, ataxia, blurred vision, chest pain, combativeness, diaphoresis, diarrhea, dizziness, headache, lightheadedness, nausea, numbness, palpitations, seizure, shortness of breath, tingling, vertigo, vomiting, weakness. Current symptoms: Currently, the patient is not experiencing any symptoms, confusion, decreased level of consciousness, dysphasia, headache, paralysis or paresis. Historical: - Allergies: 08:55 No Known Allergies; jr10 - Home Meds: 08:54 amlodipine 10 mg tab 1 tab once daily [Active]; losartan 100 mg Oral tab 1 tab once jr10 daily [Active]; oxcarbazepine 300 mg Oral tab 1 tab 2 times per day [Active]; donepezil 10 mg oral tab [Active]; memantine 5 mg oral tab [Active]; loratadine 10 mg oral tab [Active]; - PMHx: 08:55 CVA; Hypertension; Seizures; jr10 - Immunization history:: Adult Immunizations up to date. - Social history:: Smoking status: unknown. ROS: 09:47 Constitutional: Negative for fever, chills, and weight loss, Cardiovascular: Negative kb for chest pain, palpitations, and edema, Respiratory: Negative for shortness of breath, cough, wheezing, and pleuritic chest pain, Abdomen/GI: Negative for abdominal pain, nausea, vomiting, diarrhea, and constipation, Back: Negative for injury and pain, MS/Extremity: Negative for injury and deformity, Skin: Negative for injury, rash, and discoloration, Neuro: Negative for headache, weakness, numbness, tingling, and seizure. Exam: 09:47 Constitutional: This is a well developed, well nourished patient who is awake, alert, kb and in no acute distress. Head/Face: Normocephalic, atraumatic. Eyes: Pupils equal round and reactive to light, extra-ocular motions intact. Lids and lashes normal. Conjunctiva and sclera are non-icteric and not injected. Cornea within normal limits. Periorbital areas with no swelling, redness, or edema. Neck: Trachea midline, no thyromegaly or masses palpated, and no cervical lymphadenopathy. Supple, full range of motion without nuchal rigidity, or vertebral point tenderness. No Meningismus. Chest/axilla: Normal chest wall appearance and motion. Nontender with no deformity. No lesions are appreciated. Cardiovascular: Regular rate and rhythm with a normal S1 and S2. No gallops, murmurs, or rubs. Normal PMI, no JVD. No pulse deficits. Respiratory: Lungs have equal breath sounds bilaterally, clear to auscultation and percussion. No rales, rhonchi or wheezes noted. No increased work of breathing, no retractions or nasal flaring. Abdomen/GI: Soft, non-tender, with normal bowel sounds. No distension or tympany. No guarding or rebound. No evidence of tenderness throughout. Skin: Warm, dry with normal turgor. Normal color with no rashes, no lesions, and no evidence of cellulitis. MS/ Extremity: Pulses equal, no cyanosis. Neurovascular intact. Full, normal range of motion. 09:47 Neuro: Orientation: Not oriented to person, place, time, situation, Mentation: able to follow commands, Motor: is normal. 09:49 ECG was reviewed by the Attending Physician. kb Vital Signs: 08:49 BP 155 / 65; Pulse 75; Resp 20; Temp 98.2(O); Pulse Ox 97% on R/A; Pain 0/10; jr10 10:02 BP 128 / 64; Pulse 59; Resp 20; Pulse Ox 93% on R/A; jr10 11:13 BP 123 / 64; Pulse 63; Resp 20; Pulse Ox 97% on R/A; jr10 11:59 BP 152 / 84; Pulse 57; Resp 20; Pulse Ox 98% on R/A; Pain 0/10; jr10 MDM: 08:50 Patient medically screened. kb 09:49 Data reviewed: vital signs, nurses notes. Data interpreted: Pulse oximetry: on room air kb is 97 %. Interpretation: normal. 09:49 ED course: Pt has no abdominal tenderness upon exam and has no abdominal complaints kb including pain. 10:13 ED course: Called to speak to to get accurate account of situation sea captain. She states kb she is on her way here and we can discuss everything when she gets here. . 11:29 Counseling: I had a detailed discussion with the patient and/or guardian regarding: the kb historical points, exam findings, and any diagnostic results supporting the discharge/admit diagnosis, lab results, radiology results, the need for outpatient follow up, a family practitioner, to return to the emergency department if symptoms worsen or persist or if there are any questions or concerns that arise at home. ED course: is at bedside. States he is acting normally now. States he "fell out" this morning so it concerned her. Reports pt switched from [place] to [place] and Dr Robles changed his medications and she doesn't think they are working as well so she is going to call for a follow up appt to see about changing them back. . 04/23 08:51 Order name: Basic Metabolic Panel; Complete Time: 09:36 kb 04/23 08:51 Order name: CBC with Diff; Complete Time: 09:23 kb 04/23 08:51 Order name: Ckmb; Complete Time: 09:36 kb 04/23 08:51 Order name: CPK; Complete Time: 09:36 kb 04/23 08:51 Order name: Hepatic Function; Complete Time: 09:36 kb 04/23 08:51 Order name: Lipase; Complete Time: 09:36 kb 04/23 08:51 Order name: Magnesium; Complete Time: 09:36 kb 04/23 08:51 Order name: Protime (+inr); Complete Time: 09:24 kb 04/23 08:51 Order name: Ptt, Activated; Complete Time: 09:24 kb 04/23 08:51 Order name: Troponin (emerg Dept Use Only); Complete Time: 09:36 kb 04/23 08:51 Order name: EKG; Complete Time: 08:51 kb 04/23 08:51 Order name: Cardiac monitoring; Complete Time: 08:56 kb 04/23 08:51 Order name: EKG - Nurse/Tech; Complete Time: 09:21 kb 04/23 08:51 Order name: CT Head Brain wo Cont; Complete Time: 09:43 kb 04/23 08:51 Order name: IV Saline Lock; Complete Time: 09:06 kb 04/23 08:51 Order name: Labs collected and sent; Complete Time: 09:06 kb 04/23 08:51 Order name: NPO; Complete Time: 08:56 kb 04/23 08:51 Order name: O2 Per Protocol; Complete Time: 08:56 kb 04/23 08:51 Order name: O2 Sat Monitoring; Complete Time: 08:56 kb EC:49 Rate is 64 beats/min. Rhythm is regular. QRS [place] is Normal. [place] interval is normal at kb 136 msec. QRS interval is normal at 144 msec. QT interval is normal at 452 msec. Administered Medications: No medications were administered Disposition: 04/24 08:53 Co-signature as Attending Physician, Ravinder Baxter MD I agree with the assessment and kdr plan of care. Disposition: 04/23/20 11:28 Discharged to Home. Impression: Syncope and collapse. - Condition is Stable. - Discharge Instructions: Syncope, [id number]. - Medication Reconciliation Form, Thank You Letter, Antibiotic Education, Prescription Opioid Use form. - Follow up: Emergency Department; When: As needed; Reason: Worsening of condition. Follow up: Private Physician; When: 2 - 3 days; Reason: Recheck today's complaints, Continuance of care, Re-evaluation by your physician. Signatures: Dispatcher [employer] EDDC Edith Coy, LUCIANA HOLLAND-Ravinder Shahid MD MD kdr Rivera, Jessica RN RN jr10 Corrections: (The following items were deleted from the chart) 04/23 11:40 08:51 Urine Dipstick-Ancillary ordered. kb jr10 12:00 11:28 04/23/2020 11:28 Discharged to Home. Impression: Syncope and collapse. Condition jrChely is Stable. Forms are Medication Reconciliation Form, Thank You Letter, Antibiotic Education, Prescription Opioid Use. Follow up: Emergency Department; When: As needed; Reason: Worsening of condition. Follow up: Private Physician; When: 2 - 3 days; Reason: Recheck today's complaints, Continuance of care, Re-evaluation by your physician. kb
[2020-04-23 12:07] VITALS: TEMP 98.2
[2020-04-23 12:11] VITALS: BP 152/84; O2SAT 98
--- NOTE | 2020-04-24 08:43 | EKG ---
Test Date: 2020-04-23 Test Time: 09:18:00 Pig Sticker: BRIDGET MEASUREMENT RESULTS: Intervals: Rate: 64 MS: 136 QRSD: 144 QT: 452 QTc: 466 [place]: P: 29 MS: 136 QRS: -13 T: -5 INTERPRETIVE STATEMENTS: Sinus rhythm with occasional premature ventricular complexes Right bundle branch block Inferior infarct, age undetermined Abnormal ECG Compared to ECG 08/13/2018 07:25:54 Ventricular premature complex(es) now present Right bundle-branch block now present Atrial premature complex(es) no longer present Left-axis deviation no longer present Myocardial infarct finding still present Electronically Signed On 04-24-20 08:38:41 CDT by Bertrand Moyer
== END 2020-04-23 12:00 | disposition home or self-care (01) ==
LOC: ER 08:39
DX: R55 Syncope and collapse (principal); I10 Essential (primary) hypertension; F03.90 Unspecified dementia, unspecified severity, without behavioral disturbance, psychotic disturbance, mood disturbance, and anxiety; G40.909 Epilepsy, unspecified, not intractable, without status epilepticus; Z86.73 Personal history of transient ischemic attack (TIA), and cerebral infarction without residual deficits
CPT/HCPCS: 36415; 70450; 80048; 80076; 82550; 82553; 83690; 83735; 84484; 85025; 85610; 85730; 93005; 99284

== ENCOUNTER 2020-05-03 03:05 | Emergency (ER) | payer OTHER ==
--- NOTE | 2020-05-03 03:49 | EDPHYS ---
Physician Documentation [facility] Name: John Matias Age: 79 yrs Sex: Male : 1940 Arrival Date: 05/03/2020 Time: 03:05 Bed 6 Private MD: ALYSSA Physician Diaz Harrington HPI: 05/03 03:41 This 79 yrs old Male presents to ER via Wheelchair with complaints of Arm leo Bleeding. 03:41 The patient or guardian complains of an abrasion. The complaints affect the left elbow. leo Context: The problem was sustained at home, at an unknown location, resulted from unknown cause. Onset: The symptoms/episode began/occurred just prior to arrival, this morning. Treatment prior to arrival includes: no previous treatment. Modifying factors: The symptoms are alleviated by nothing. the symptoms are aggravated by nothing. Associated signs and symptoms: The patient has no apparent associated signs or symptoms. Severity of symptoms: At their worst the symptoms were mild, in the emergency department the symptoms are unchanged. The patient has experienced similar episodes in the past, a few times. Historical: - Allergies: 03:29 No Known Allergies; bb - Home Meds: 03:29 amlodipine 10 mg tab 1 tab once daily [Active]; donepezil 10 mg Oral tab [Active]; bb loratadine 10 mg Oral tab [Active]; losartan 100 mg Oral tab 1 tab once daily [Active]; memantine 5 mg Oral tab [Active]; oxcarbazepine 300 mg Oral tab 1 tab 2 times per day [Active]; pravastatin 40 mg Oral tab 1 tab once daily [Active]; - PMHx: 03:29 CVA; Hypertension; Seizures; bb - Immunization history:: Adult Immunizations unknown. - Social history:: Smoking status: unknown. - Family history:: not pertinent. ROS: 03:41 Constitutional: Negative for fever, chills, and weight loss, Eyes: Negative for injury, leo pain, redness, and discharge, ENT: Negative for injury, pain, and discharge, Neck: Negative for injury, pain, and swelling, Cardiovascular: Negative for chest pain, palpitations, and edema, Respiratory: Negative for shortness of breath, cough, wheezing, and pleuritic chest pain, Abdomen/GI: Negative for abdominal pain, nausea, vomiting, diarrhea, and constipation, Back: Negative for injury and pain, : Negative for injury, bleeding, discharge, and swelling, Skin: Negative for injury, rash, and discoloration, Neuro: Negative for headache, weakness, numbness, tingling, and seizure, Psych: Negative for depression, anxiety, suicide ideation, homicidal ideation, and hallucinations, Allergy/Immunology: Negative for hives, rash, and allergies, Endocrine: Negative for neck swelling, polydipsia, polyuria, polyphagia, and marked weight changes, Hematologic/Lymphatic: Negative for swollen nodes, abnormal bleeding, and unusual bruising. 03:41 MS/extremity: Positive for laceration, pain, of the left elbow. 03:41 Skin: Positive for laceration(s), small skin tear, left lbow. Exam: 03:41 Constitutional: This is a well developed, well nourished patient who is awake, alert, leo and in no acute distress. Head/Face: Normocephalic, atraumatic. Eyes: Pupils equal round and reactive to light, extra-ocular motions intact. Lids and lashes normal. Conjunctiva and sclera are non-icteric and not injected. Cornea within normal limits. Periorbital areas with no swelling, redness, or edema. ENT: Nares patent. No nasal discharge, no septal abnormalities noted. Tympanic membranes are normal and external auditory canals are clear. Oropharynx with no redness, swelling, or masses, exudates, or evidence of obstruction, uvula midline. Mucous membranes moist. Neck: Trachea midline, no thyromegaly or masses palpated, and no cervical lymphadenopathy. Supple, full range of motion without nuchal rigidity, or vertebral point tenderness. No Meningismus. Chest/axilla: Normal chest wall appearance and motion. Nontender with no deformity. No lesions are appreciated. Cardiovascular: Regular rate and rhythm with a normal S1 and S2. No gallops, murmurs, or rubs. Normal PMI, no JVD. No pulse deficits. Respiratory: Lungs have equal breath sounds bilaterally, clear to auscultation and percussion. No rales, rhonchi or wheezes noted. No increased work of breathing, no retractions or nasal flaring. Abdomen/GI: Soft, non-tender, with normal bowel sounds. No distension or tympany. No guarding or rebound. No evidence of tenderness throughout. Back: No spinal tenderness. No costovertebral tenderness. Full range of motion. Male : Normal genitalia with no discharge or lesions. Skin: Warm, dry with normal turgor. Normal color with no rashes, no lesions, and no evidence of cellulitis. Neuro: Awake and alert, GCS 15, oriented to person, place, time, and situation. Cranial nerves II-XII grossly intact. Motor strength 5/5 in all extremities. Sensory grossly intact. Cerebellar exam normal. Normal gait. Psych: Awake, alert, with orientation to person, place and time. Behavior, mood, and affect are within normal limits. 03:41 Musculoskeletal/extremity: Extremities: laceration, swelling, abrasion, ROM: full active range of motion, full passive range of motion, Circulation is intact in all extremities. Sensation intact. Compartment Syndrome exam of affected extremity: is normal. Joints: All joints appear normal with full range of motion. Weight bearing: able to fully bear weight, Tendon exam: specific tendon testing normal through active and passive range of motion DVT Exam: No signs of deep vein thrombosis. no pain, no swelling, no tenderness, negative Homans' sign noted on exam, no appreciated bluish discoloration, no erythema, no increased warmth. Vital Signs: 03:27 BP 161 / 84; Pulse 98; Resp 16 S; Temp 98.4(O); Pulse Ox 97% on R/A; bb MDM: 03:18 Patient medically screened. [facility] 03:45 Differential diagnosis: contusion, abrasion. Data reviewed: vital signs, nurses notes. [facility] Data interpreted: air defense artillery officer: rate is 98 beats/min, rhythm is regular, Pulse oximetry: on room air is 97 %. Counseling: I had a detailed discussion with the patient and/or guardian regarding: the historical points, exam findings, and any diagnostic results supporting the discharge/admit diagnosis, lab results, the need for outpatient follow up. ED course: simple skin tear, dressed, follow up return if worse. 03:47 Test interpretation: by ED physician or midlevel provider:. leo 05/03 03:41 Order name: Wound dressing; Complete Time: 03:43 [facility] Administered Medications: 03:43 Drug: Neosporin Ointment 1 application Route: Topical; Site: wound; ea Disposition: 05/03/20 03:48 Discharged to Home. Impression: Laceration without foreign body of left forearm - skin tear. - Condition is Stable. - Discharge Instructions: Laceration Care, Adult, Skin Tear Care, Laceration Care, Adult, [id number], Skin Tear Care, [id number]. - Prescriptions for Bactroban 2 % Topical Ointment - Apply to affected area 1 application by TOPICAL route every 12 hours; 15 gram. - Medication Reconciliation Form, Thank You Letter, Antibiotic Education, Prescription Opioid Use form. - Follow up: Private Physician; When: 2 - 3 days; Reason: Recheck today's complaints, Continuance of care, Re-evaluation by your physician. - Problem is new. - Symptoms have improved. Signatures: Diaz Harrington MD MD cha Ballard, Brenda, RN RN Laila Santana RN RN faustina Corrections: (The following items were deleted from the chart) 03:59 03:48 05/03/2020 03:48 Discharged to Home. Impression: Laceration without foreign body ea of left forearm - skin tear. Condition is Stable. Forms are Medication Reconciliation Form, Thank You Letter, Antibiotic Education, Prescription Opioid Use. Follow up: Private Physician; When: 2 - 3 days; Reason: Recheck today's complaints, Continuance of care, Re-evaluation by your physician. Problem is new. Symptoms have improved. leo
--- NOTE | 2020-05-03 03:49 | ER ---
Nurse's Notes [facility] [place] Name: John Matias Age: 79 yrs Sex: Male : 1940 Arrival Date: 05/03/2020 Time: 03:05 Bed 6 Private MD: Diagnosis: Laceration without foreign body of left forearm-skin tear Presentation: 05/03 03:27 Chief complaint: Spouse and/or significant other states: pt's right arm started bb bleeding and now blood is all over the place at home and she couldn't get the bleeding to stop. Coronavirus screen: At this time, the client does not indicate any symptoms associated with coronavirus-19. Ebola Screen: No symptoms or risks identified at this time. Initial Sepsis Screen: Does the patient meet any 2 criteria? No. Patient's initial sepsis screen is negative. Does the patient have a suspected source of infection? No. Patient's initial sepsis screen is negative. Risk Assessment: Do you want to hurt yourself or someone else? Patient reports no desire to harm self or others. Onset of symptoms was May 03, 2020. 03:27 Method Of Arrival: Wheelchair bb 03:27 Acuity: AGATHA 4 bb Triage Assessment: 03:29 General: Appears in no apparent distress. Behavior is calm, cooperative. Pain: bb Complains of pain in right arm. Historical: - Allergies: : No Known Allergies; bb - Home Meds: : amlodipine 10 mg tab 1 tab once daily [Active]; donepezil 10 mg Oral tab [Active]; bb loratadine 10 mg Oral tab [Active]; losartan 100 mg Oral tab 1 tab once daily [Active]; memantine 5 mg Oral tab [Active]; oxcarbazepine 300 mg Oral tab 1 tab 2 times per day [Active]; pravastatin 40 mg Oral tab 1 tab once daily [Active]; - PMHx: 03:29 CVA; Hypertension; Seizures; bb - Immunization history:: Adult Immunizations unknown. - Social history:: Smoking status: unknown. - Family history:: not pertinent. Screenin:41 Abuse screen: Denies threats or abuse. Nutritional screening: No deficits noted. ea Tuberculosis screening: No symptoms or risk factors identified. Fall Risk None identified. Assessment: 03:35 General: Appears in no apparent distress. Behavior is calm, cooperative, appropriate ea for age. Pain: Denies pain. Neuro: Level of Consciousness is awake, alert, obeys commands, Oriented to person, place, time, situation. Cardiovascular: Patient's skin is warm and dry. Derm: skin tear to right elbow, area cleansed and dressed with steri strips. Pt tolerated well. 03:59 Reassessment: Patient and/or family updated on plan of care and expected duration. Pain ea level reassessed. Patient is alert, oriented x 3, equal unlabored respirations, skin warm/dry/pink. Discharge instruction given to patient, verbalized the understaging of instruction. Vital Signs: 03:27 BP 161 / 84; Pulse 98; Resp 16 S; Temp 98.4(O); Pulse Ox 97% on R/A; bb ED Course: 03:05 Patient arrived in ED. cf2 03:18 Diaz Harrington MD is Attending Physician. leo 03:28 Triage completed. johnie 03:29 Arm band placed on Patient placed in an exam room, on a stretcher, on pulse oximetry. johnie Family accompanied patient. 03:33 Lavon Zuniga, RN is Primary Nurse. rr5 03:41 Patient has correct armband on for positive identification. Bed in low position. Call ea light in reach. Side rails up X 1. 03:41 No provider procedures requiring assistance completed. Patient did not have IV access ea during this emergency room visit. Administered Medications: 03:43 Drug: Neosporin Ointment 1 application Route: Topical; Site: wound; ea Outcome: 03:41 Condition: stable ea 03:48 Discharge ordered by . leo 03:58 Discharged to home via wheelchair, with family. ea 03:58 Discharge instructions given to family, Instructed on discharge instructions, follow up and referral plans. medication usage, Demonstrated understanding of instructions, follow-up care, medications, Prescriptions given X 1. 03:59 Patient left the ED. ea Signatures: Diaz Harrington MD MD cha Ballard, Brenda, RN RN Laila Santana RN RN ea Roque, Raymond, RN RN rr5 Ashley Durán cf2
[2020-05-06 20:34] VITALS: BP 161/84; TEMP 98.4; O2SAT 97
== END 2020-05-03 03:59 | disposition home or self-care (01) ==
LOC: ER 03:05
DX: S51.812A Laceration without foreign body of left forearm, initial encounter (principal); W45.8XXA Other foreign body or object entering through skin, initial encounter; Y93.9 Activity, unspecified; Y92.009 Unspecified place in unspecified non-institutional (private) residence as the place of occurrence of the external cause; I10 Essential (primary) hypertension; Z86.73 Personal history of transient ischemic attack (TIA), and cerebral infarction without residual deficits
CPT/HCPCS: 99283

== ENCOUNTER 2022-02-07 16:09 | Emergency (ER) | payer OTHER ==
[2022-02-07] MEDS ORDERED: predniSONE 20 MG TAB ONE (17:01)
[2022-02-07] MEDS ORDERED: HYDROCODONE/APAP 5/325 MG TAB ONE (17:02)
[2022-02-07] MEDS ORDERED: VALACYCLOVIR 500 MG TAB ONE (17:12)
--- NOTE | 2022-02-07 17:21 | ER ---
Nurse's Notes [facility] Name: John Matias Age: 81 yrs Sex: Male : 1940 Arrival Date: 02/07/2022 Time: 16:15 Bed 13 Private MD: Brayden Robles T Diagnosis: Herpes Zoster Presentation: 02/07 16:22 Chief complaint: Parent and/or Guardian states: Redness and rash noted to R upper arm, ss and R upper back. Pt reports rash is itchy and painful. Coronavirus screen: Client denies travel out of the [place] in the last 14 days. Ebola Screen: Patient denies exposure to infectious person. Patient denies travel to an Ebola-affected area in the 21 days before illness onset. Onset: The symptoms/episode began/occurred 3 day(s) ago. Anaphylaxis evaluation, no signs or symptoms of anaphylaxis were noted. Initial Sepsis Screen: Does the patient meet any 2 criteria? No. Patient's initial sepsis screen is negative. Does the patient have a suspected source of infection? No. Patient's initial sepsis screen is negative. Risk Assessment: Do you want to hurt yourself or someone else? Patient reports no desire to harm self or others. Onset of symptoms was February 04, 2022. 16:22 Method Of Arrival: Wheelchair ss 16:22 Acuity: AGATHA 3 ss Historical: - Allergies: 16:27 No Known Allergies; ss - PMHx: 16:27 CVA; Hypertension; Seizures; ss - Immunization history:: Client reports receiving the 2nd dose of the Covid vaccine. - Social history:: Smoking status: Patient denies any tobacco usage or history of. Vital Signs: 16:22 BP 135 / 62; Pulse 71; Resp 16; Pulse Ox 96% on R/A; Weight 77.11 kg; Height 5 ft. 5 ss in. (165.10 cm); 16:29 Temp 99.1(O); ss 16:22 Body Mass Index 28.29 (77.11 kg, 165.10 cm) ED Course: 16:15 Patient arrived in ED. am2 16:15 Brayden Robles MD is Private Physician. am2 16:27 Triage completed. ss 16:27 Arm band placed on right wrist. ss 16:28 Nic Fierro PA is PHCP. jmm 16:28 Diaz Harrington MD is Attending Physician. [facility] 16:51 Sruthi Dow, RN is Primary Nurse. [facility] 17:20 Brayden Robles MD is Referral Physician. [facility] Administered Medications: 17:03 Drug: predniSONE 60 mg Route: PO; 6 17:03 Drug: HYDROcodone-acetaminophen 5 mg-325 mg 1 tabs Route: PO; 6 17:08 Drug: valACYclovir 1000 mg Route: PO; [facility] Outcome: 17:21 Discharge ordered by . [facility] 18:44 Patient left the ED. [facility] Signatures: Nic Fierro PA PA [facility] Lilly May, RN RN Tanya Cooper am2 Sruthi Dow, RN RN [facility]
--- NOTE | 2022-02-07 17:21 | EDPHYS ---
Physician Documentation [facility] Name: John Matias Age: 81 yrs Sex: Male : 1940 Arrival Date: 02/07/2022 Time: 16:15 Bed 13 Private MD: Brayden Robles T ED Physician Diaz Harrington HPI: 02/07 16:29 This 81 yrs old Male presents to ER via Wheelchair with complaints of Rash. jmm 16:29 The patient's rash thought to be caused by. Onset: The symptoms/episode began/occurred jmm gradually, 3 day(s) ago. Associated signs and symptoms: Pertinent negatives: fever, swelling of lips, swelling of throat, swelling of tongue. This is an 81 year old male with a history of cva, htn , epilepsy that presents to the ED with a rash beginning approx 3 days ago. Denies fever. Patient recently began taking flomax. Denies vomiting, sob. . Historical: - Allergies: 16:27 No Known Allergies; ss - PMHx: 16:27 CVA; Hypertension; Seizures; ss - Immunization history:: Client reports receiving the 2nd dose of the Covid vaccine. - Social history:: Smoking status: Patient denies any tobacco usage or history of. ROS: 16:29 Constitutional: Negative for fever, chills, and weight loss, Cardiovascular: Negative jmm for chest pain, palpitations, and edema, Respiratory: Negative for shortness of breath, cough, wheezing, and pleuritic chest pain. 16:29 Skin: Positive for rash. 16:29 All other systems are negative. Exam: 16:29 Constitutional: This is a well developed, well nourished patient who is awake, alert, jmm and in no acute distress. Head/Face: atraumatic. Eyes: EOMI, no conjunctival erythema appreciated ENT: Moist Mucus Membranes Neck: Trachea midline, Supple Chest/axilla: Normal chest wall appearance and motion. Cardiovascular: Regular rate and rhythm. No edema appreciated Respiratory: Normal respirations, no respiratory distress appreciated Abdomen/GI: Non distended, soft Back: Normal ROM 16:29 Skin: vesicular rash noted to the right side of the chest with an erythematous base. 16:29 Neuro: Orientation: is normal, Mentation: is normal, Memory: is normal. 16:29 Psych: Behavior/mood is pleasant, cooperative. Vital Signs: 16:22 BP 135 / 62; Pulse 71; Resp 16; Pulse Ox 96% on R/A; Weight 77.11 kg; Height 5 ft. 5 ss in. (165.10 cm); 16:29 Temp 99.1(O); ss 16:22 Body Mass Index 28.29 (77.11 kg, 165.10 cm) ss MDM: 16:29 Patient medically screened. leo 17:18 Data reviewed: vital signs, nurses notes. Counseling: I had a detailed discussion with [facility] the patient and/or guardian regarding: the historical points, exam findings, and any diagnostic results supporting the discharge/admit diagnosis, lab results, radiology results, the need for outpatient follow up, to return to the emergency department if symptoms worsen or persist or if there are any questions or concerns that arise at home. ED course: Patient is alert and non toxic in appearance in the ED. PE findings consistent with shingles. Patient advised to follow up with pcp and otherwise given strict return precautions. Patient understood and agrees with the plan of care. . Administered Medications: 17:03 Drug: predniSONE 60 mg Route: PO; [facility] 17:03 Drug: HYDROcodone-acetaminophen 5 mg-325 mg 1 tabs Route: PO; [facility] 17:08 Drug: valACYclovir 1000 mg Route: PO; [facility] Disposition Summary: 02/07/22 17:21 Discharge Ordered Location: Home [facility] Condition: Stable [facility] Diagnosis - Herpes Zoster [facility] Followup: [facility] - With: Brayden Robles MD - When: 2 - 3 days - Reason: Recheck today's complaints, Continuance of care, Re-evaluation by your physician Discharge Instructions: - Discharge Summary Sheet [facility] - Shingles [facility] Forms: - Medication Reconciliation Form [facility] - Thank You Letter [facility] - Antibiotic Education [facility] - Prescription Opioid Use [facility] Prescriptions: - Valtrex 1 gram Oral tablet - take 1 tablet by ORAL route 3 times per day for 7 days; 21 tablet; Refills: 0, [facility] Product Selection Permitted - Tylenol-Codeine #3 300 mg-30 mg Oral - take 1 tablet by ORAL route every 6 hours; 12 tablet; Refills: 0, Product [facility] Selection Permitted - gabapentin 300 mg Oral capsule - take 1 capsule by ORAL route 2 times per day; 20 capsule; Refills: 0, Product [facility] Selection Permitted Signatures: Diaz Harrington MD MD cha Mickail, Joel, PA PA jmm Smirch, Shelby, RN RN ss Sruthi Dow RN RN jh6
[2022-02-07 18:59] VITALS: BP 135/62; O2SAT 96
[2022-02-07 19:00] VITALS: TEMP 99.1
== END 2022-02-07 18:44 | disposition home or self-care (01) ==
LOC: ER 16:09
DX: B02.9 Zoster without complications (principal); I10 Essential (primary) hypertension; R56.9 Unspecified convulsions; I63.9 Cerebral infarction, unspecified
CPT/HCPCS: 99282; J7512

== ENCOUNTER 2022-05-20 06:52 | Inpatient (IN) | payer OTHER ==
--- OUTSIDE RECORDS SUMMARY | 2022-05-20 06:56 | XMS REPORT | Continuity of Care Document ---
:1940 Author Organization [facility] t Address [address] [place] [address] Care Team Providers Name Role Phone Brayden Robles Attending Clinician Unavailable Problems This patient has no known problems. Allergies, Adverse Reactions, Alerts This patient has no known allergies or adverse reactions. Medications This patient has no known medications. Procedures This patient has no known procedures. Encounters Start End Encounter Admission Attending Care Care Encounter Source Date/Time Date/Time Type Type Clinicians Facility Department ID 2022-04-21 Outpatient Brayden Robles [facility] [id number] Common 13:20:02 [facility] 2022-04-21 2022-04-21 ambulatory [facility] [id number] Common 00:00:00 00:00:00 [facility] Results This patient has no known results.
[2022-05-20] MEDS ORDERED: NA CHLORIDE 0.9% 500 ML ONE (07:51)
[2022-05-20] MEDS ORDERED: FENTANYL CITR 100 MCG/2 ML ONE ×2 (08:06→12:28)
[2022-05-20] MEDS ORDERED: ONDANSETRON 4 MG/2 ML VIAL ONE (08:07)
[2022-05-20] MEDS ORDERED: FOLIC ACID 5 MG/ML VIAL ONE (08:08)
[2022-05-20 08:39] LABS: Absolute Lymphocytes (CBC) 0.7 K/uL (0.7-4.9); Lymphocytes % 6.9 % (15.3-44.8); MCV 95.1 fL (80-100); MPV 7.9 fL (7.6-11.3); RBC Red Blood Cell Count 3.36 M/uL (4.33-5.43)
[2022-05-20 08:53] LABS: Protime INR 1.22
[2022-05-20 09:24] LABS: SARS-CoV-2 Antigen Rapid Res Negative (Negative)
--- NOTE | 2022-05-20 09:44 | RAD REPORT ---
EXAM DESCRIPTION: Tadeo Smalls Left05/20/2022 9:38 am CLINICAL HISTORY: Left leg pain status post injury FINDINGS: No fracture is seen
--- NOTE | 2022-05-20 10:09 | RAD REPORT ---
EXAM DESCRIPTION: USExtrem Venous W Compress Bil05/20/2022 9:07 am CLINICAL HISTORY: Leg pain COMPARISON: none FINDINGS: The common femoral, superficial femoral, popliteal and posterior tibial veins bilaterally are compressible and demonstrate augmentation. Doppler demonstrates good flow. Grayscale, color and spectral analysis performed on all vessels IMPRESSION: No evidence of deep venous thrombosis involving either lower extremity.
[2022-05-20] MEDS ORDERED: DIAZEPAM 10 MG/2 ML INJ SYRINGE ONE ×3 (10:15→14:42)
--- NOTE | 2022-05-20 10:23 | EDPHYS ---
Physician Documentation [facility] Name: John Matias Age: 81 yrs Sex: Male : 1940 Arrival Date: 05/20/2022 Time: 06:57 Bed 2 Private MD: ALYSSA Physician Diaz Harrington HPI: 05/20 10:14 This 81 yrs old Male presents to ER via Wheelchair with complaints of Leg leo Injury, Leg Pain, Dizziness, Fall Injury. 10:14 The patient presents with decreased range of motion, pain. The complaints affect the leo lateral aspect of left thigh, lateral aspect of left calf, left hamstring, left calf, medial aspect of left thigh, medial aspect of left calf, left quadriceps and left latfi. Context: The problem was sustained at home, resulted from an unknown cause. Historical: - Allergies: 07:08 No Known Allergies; tw2 - Home Meds: 07:08 pravastatin 40 mg Oral tab 1 tab once daily [Active]; oxcarbazepine 300 mg Oral tab 1 tw2 tab 2 times per day [Active]; memantine 5 mg Oral tab [Active]; loratadine 10 mg Oral tab [Active]; losartan 100 mg Oral tab 1 tab once daily [Active]; donepezil 10 mg Oral tab [Active]; amlodipine 10 mg tab 1 tab once daily [Active]; - PMHx: 07:08 CVA; Hypertension; Seizures; tw2 - Immunization history:: Adult Immunizations. - Social history:: Smoking status: . ROS: 10:15 Constitutional: Negative for fever, chills, and weight loss, Eyes: Negative for injury, leo pain, redness, and discharge, ENT: Negative for injury, pain, and discharge, Neck: Negative for injury, pain, and swelling, Cardiovascular: Negative for chest pain, palpitations, and edema, Respiratory: Negative for shortness of breath, cough, wheezing, and pleuritic chest pain, Back: Negative for injury and pain, : Negative for injury, bleeding, discharge, and swelling, Skin: Negative for injury, rash, and discoloration, Neuro: Negative for headache, weakness, numbness, tingling, and seizure, Psych: Negative for depression, anxiety, suicide ideation, homicidal ideation, and hallucinations, Allergy/Immunology: Negative for hives, rash, and allergies, Endocrine: Negative for neck swelling, polydipsia, polyuria, polyphagia, and marked weight changes. 10:15 Abdomen/GI: Positive for nausea and vomiting, anorexia. 10:15 MS/extremity: Positive for decreased range of motion, pain, of the left leg. 10:15 Neuro: Positive for altered mental status, dizziness, weakness. Exam: 10:15 Constitutional: This is a well developed, well nourished patient who is awake, alert, leo and in no acute distress. Head/Face: Normocephalic, atraumatic. Eyes: Pupils equal round and reactive to light, extra-ocular motions intact. Lids and lashes normal. Conjunctiva and sclera are non-icteric and not injected. Cornea within normal limits. Periorbital areas with no swelling, redness, or edema. ENT: Nares patent. No nasal discharge, no septal abnormalities noted. Tympanic membranes are normal and external auditory canals are clear. Oropharynx with no redness, swelling, or masses, exudates, or evidence of obstruction, uvula midline. Mucous membranes moist. Neck: Trachea midline, no thyromegaly or masses palpated, and no cervical lymphadenopathy. Supple, full range of motion without nuchal rigidity, or vertebral point tenderness. No Meningismus. Chest/axilla: Normal chest wall appearance and motion. Nontender with no deformity. No lesions are appreciated. Cardiovascular: Regular rate and rhythm with a normal S1 and S2. No gallops, murmurs, or rubs. Normal PMI, no JVD. No pulse deficits. Respiratory: Lungs have equal breath sounds bilaterally, clear to auscultation and percussion. No rales, rhonchi or wheezes noted. No increased work of breathing, no retractions or nasal flaring. Abdomen/GI: Soft, non-tender, with normal bowel sounds. No distension or tympany. No guarding or rebound. No evidence of tenderness throughout. Back: No spinal tenderness. No costovertebral tenderness. Full range of motion. Male : Normal genitalia with no discharge or lesions. Skin: Warm, dry with normal turgor. Normal color with no rashes, no lesions, and no evidence of cellulitis. Psych: Awake, alert, with orientation to person, place and time. Behavior, mood, and affect are within normal limits. 10:15 Musculoskeletal/extremity: ROM: limited active range of motion due to pain, limited passive range of motion due to pain, in the left leg, Circulation is intact in all extremities. Sensation intact. Compartment Syndrome exam of affected extremity: is normal. Joints: All joints appear normal with full range of motion. Weight bearing: is unable to bear weight, DVT Exam: No signs of deep vein thrombosis. no swelling, no tenderness, negative Homans' sign noted on exam, no appreciated bluish discoloration, no erythema, no increased warmth, pain. 10:15 Neuro: Orientation: to person, Not oriented to place, time, situation, Cranial nerves: grossly normal, Cerebellar function: unable to test, Motor: moves all fours, Sensation: no obvious gross deficits, appropriate no acute changes, Gait: not tested. Deep tendon reflexes are 1 (trace) + in the bilateral brachioradialis, bicep, tricep and patellar and Achilles tendons, Babinski testing is normal. 10:23 ECG was reviewed by the Attending Physician. [facility] Vital Signs: 07:05 BP 133 / 55; Pulse 65; Resp 17; Temp 99.7(TE); Pulse Ox 97% on R/A; Weight 79 kg (R); tw2 Pain 10/10; 07:30 BP 129 / 52; Pulse 60; Resp 16; Temp 98.9; Pulse Ox 96% ; ko1 07:45 BP 132 / 78; Pulse 68; Resp 16; Pulse Ox 98% ; ko1 08:00 BP 125 / 50; Pulse 62; Resp 16; Pulse Ox 98% ; ko1 08:15 BP 136 / 55; Pulse 63; Resp 18; Pulse Ox 98% ; ko1 08:15 BP 117 / 55; Pulse 61; Resp 16; Pulse Ox 95% ; ko1 09:44 BP 123 / 56; Pulse 66; Resp 14; Pulse Ox 95% ; ko1 11:00 BP 121 / 80; Pulse 79; Pulse Ox 99% ; ph 12:00 BP 138 / 63; Pulse 61; Pulse Ox 96% ; ph 13:00 BP 160 / 89; Pulse 66; Pulse Ox 97% ; ph 14:00 BP 152 / 73; Pulse 56; Pulse Ox 98% ; ph 15:00 BP 134 / 75; Pulse 83; Resp 22; Temp 98; Pulse Ox 98% ; ko1 MDM: 07:15 Patient medically screened. leo 10:19 Differential diagnosis: closed fracture, contusion, tendonitis. Differential Diagnosis leo altered mental status, sepsis. Differential diagnosis: generalized weakness, hypovolemia, idiopathic dizziness, near-syncope, sepsis, TIA. Data reviewed: vital signs, nurses notes, EMS record, lab test result(s), EKG, radiologic studies, CT scan, plain films. Data interpreted: patient monitor: rate is 66 beats/min, rhythm is regular, Pulse oximetry: on room air is 95 %. Test interpretation: by ED physician or midlevel provider: ECG, plain radiologic studies. Counseling: I had a detailed discussion with the patient and/or guardian regarding: the historical points, exam findings, and any diagnostic results supporting the discharge/admit diagnosis, lab results, radiology results, the need for further work-up and treatment in the hospital. 05/20 07:38 Order name: Basic Metabolic Panel; Complete Time: 11:06 [facility] 05/20 07:38 Order name: CBC with Diff; Complete Time: 08:47 [facility] 05/20 07:38 Order name: LFT's; Complete Time: 11:06 [facility] 05/20 07:38 Order name: Magnesium; Complete Time: 11:06 [facility] 05/20 07:38 Order name: NT PRO-BNP; Complete Time: 11:06 [facility] 05/20 07:38 Order name: PT-INR; Complete Time: 09:29 [facility] 05/20 07:38 Order name: Troponin HS; Complete Time: 11:06 [facility] 05/20 07:38 Order name: SARS RAPID; Complete Time: 09:29 [facility] 05/20 07:38 Order name: Urine Culture [facility] 05/20 11:24 Order name: Urine Microscopic Only [facility] 05/20 12:05 Order name: Urinalysis [facility] 05/20 12:05 Order name: Basic Metabolic Panel [facility] 05/20 12:05 Order name: Basic Metabolic Panel [facility] 05/20 12:05 Order name: CBC with Automated Diff [facility] 05/20 12:05 Order name: CBC with Automated Diff [facility] 05/20 12:05 Order name: Comprehensive Metabolic Panel [facility] 05/20 12:05 Order name: Comprehensive Metabolic Panel [facility] 05/20 12:05 Order name: Creatine Phosphokinase [facility] 05/20 12:05 Order name: Creatine Phosphokinase [facility] 05/20 12:05 Order name: Creatine Phosphokinase [facility] 05/20 12:05 Order name: Creatine Phosphokinase [facility] 05/20 12:05 Order name: Magnesium [facility] 05/20 12:05 Order name: Magnesium [facility] 05/20 12:05 Order name: Phosphorus EDMS 05/20 12:05 Order name: Phosphorus EDMS 05/20 12:05 Order name: Protime (+INR) [facility] 05/20 12:05 Order name: Protime (+INR) ED[facility] 05/20 12:05 Order name: PTT, Activated Partial Thromb [facility] 05/20 12:05 Order name: PTT, Activated Partial Thromb ED[facility] 05/20 12:13 Order name: Urine Dipstick-Ancillary ED[facility] 05/20 07:38 Order name: XRAY Chest (1 view); Complete Time: 11:19 [facility] 05/20 07:38 Order name: EKG; Complete Time: 07:39 [facility] 05/20 07:38 Order name: Cardiac monitoring; Complete Time: 07:49 [facility] 05/20 07:38 Order name: EKG - Nurse/Tech; Complete Time: 08:21 [facility] 05/20 07:38 Order name: IV Saline Lock; Complete Time: 08:21 [facility] 05/20 07:38 Order name: Labs collected and sent; Complete Time: 08:36 [facility] 05/20 07:38 Order name: O2 Per Protocol; Complete Time: 07:49 [facility] 05/20 07:38 Order name: O2 Sat Monitoring; Complete Time: 07:49 [facility] 05/20 07:38 Order name: CT Traumagram (Head C Spine CAP W Con) [facility] 05/20 07:38 Order name: Pelvis XRAY; Complete Time: 11:19 [facility] 05/20 07:38 Order name: Femur Left XRAY; Complete Time: 11:19 [facility] 05/20 07:38 Order name: Tib Fib Left XRAY; Complete Time: 10:13 [facility] 05/20 07:38 Order name: US Extremity Venous W Compression Pankaj; Complete Time: 10:13 [facility] 05/20 07:43 Order name: Head C Spine Cap W Con; Complete Time: 11:19 [facility] 05/20 08:38 Order name: Labs - recollect needed: green top only; Complete Time: 12:41 05/20 10:14 Order name: Misc. Order: cath ua if needed; Complete Time: 12:40 [facility] 05/20 11:24 Order name: Lopez; Complete Time: 15:10 leo 05/20 12:05 Order name: Physical Therapy Consult EDMS 05/20 12:05 Order name: Clear Liquid; Complete Time: 15:11 EDMS EC:23 Rate is 66 beats/min. Rhythm is regular. QRS [place] is Normal. WA interval is normal. No leo Q waves. T waves are Normal. Clinical impression: NSR w/ Non-specific ST/T Changes and No evidence of ischemia. Interpreted by me. Reviewed by me. Administered Medications: 08:20 Drug: foLIC Acid 1 mg Route: IVPB; Site: right wrist; ph 08:21 Drug: NS 0.9% 500 ml Route: IV; Rate: bolus; Site: right wrist; ph 08:21 Drug: fentaNYL (PF) 25 mcg Route: IVP; Site: right wrist; ph 08:21 Drug: Zofran (Ondansetron) 4 mg Route: IVP; Site: right wrist; ph 10:08 Drug: Valium (diazepam) 2 mg Route: IVP; Site: right wrist; ko1 11:40 Drug: Rocephin (cefTRIAXone) 1 grams Route: IV; Rate: per protocol; Site: right wrist; ko1 12:38 Drug: Valium (diazepam) 2 mg Route: IVP; Site: left antecubital; ko1 12:41 Drug: fentaNYL (PF) 25 mcg Route: IVP; Site: left antecubital; ko1 15:15 Drug: Valium (diazepam) 2 mg Route: IVP; Site: left antecubital; ko1 Disposition Summary: 05/20/22 10:22 Hospitalization Ordered Hospitalization Status: Inpatient Admission leo Provider: Telly Harp cha Location: Telemetry/MedSurg (Inpatient) leo Condition: Fair leo Problem: new leo Symptoms: have improved leo Bed/Room Type: Standard leo Room Assignment: 408(05/20/22 14:59) eb Diagnosis - Cardiomegaly leo - Dementia in other diseases classified elsewhere with behavioral disturbance leo - Weakness leo - Other retention of urine leo - UTI/ Urinary tract infection, site not specified leo Forms: - Medication Reconciliation Form leo - SBAR form leo Signatures: Dispatcher [employer] EDMS Diaz Harrington MD MD cha Waters, Shelly, SKIMMER SCOOP OPERATOR-C SKIMMER SCOOP OPERATOR-Lylew Alejandrina Polanco RN RN aa5 Lilly May RN RN ss Marielena Kim, RN RN ph Kavita Goldsmith RN RN tw2 Brittany Rivas Kathy, RN RN ko1 Corrections: (The following items were deleted from the chart) 14:59 10:22 leo parry
--- NOTE | 2022-05-20 10:23 | ER ---
Nurse's Notes [facility] Name: John Matias Age: 81 yrs Sex: Male : 1940 Arrival Date: 05/20/2022 Time: 06:57 Bed 2 Private MD: Diagnosis: Cardiomegaly;Dementia in other diseases classified elsewhere with behavioral disturbance;Weakness;Other retention of urine;UTI/ Urinary tract infection, site not specified Presentation: 05/20 07:05 Chief complaint: Spouse and/or significant other states: all night long he has been tw2 crying out. i think the pain is in his LEFT leg. Dr. masters is working on his bladder and prostrate problems a couple a days ago. i dont know if its that or the leg but ever since they did that he has been hurting. he fell this morning about 5 and landed on his right elbow. Chief complaint: Spouse and/or significant other states: he cant talk he had a stroke a couple of years ago. Coronavirus screen: At this time, the client does not indicate any symptoms associated with coronavirus-19. Ebola Screen: Patient denies travel to an Ebola-affected area in the 21 days before illness onset. Initial Sepsis Screen: Does the patient meet any 2 criteria? No. Patient's initial sepsis screen is negative. Does the patient have a suspected source of infection? No. Patient's initial sepsis screen is negative. Risk Assessment: Do you want to hurt yourself or someone else? Patient reports no desire to harm self or others. Onset of symptoms was May 20, 2022. 07:05 Method Of Arrival: Wheelchair tw2 07:05 Acuity: AGATHA 3 tw2 Triage Assessment: 07:08 General: Appears uncomfortable, Behavior is cooperative, appropriate for age. Pain: tw2 Complains of pain in left leg and right elbow. Musculoskeletal: Circulation, motion, and sensation intact. Injury Description: fell from standing, denies LOC. Historical: - Allergies: 07:08 No Known Allergies; tw2 - Home Meds: 07:08 pravastatin 40 mg Oral tab 1 tab once daily [Active]; oxcarbazepine 300 mg Oral tab 1 tw2 tab 2 times per day [Active]; memantine 5 mg Oral tab [Active]; loratadine 10 mg Oral tab [Active]; losartan 100 mg Oral tab 1 tab once daily [Active]; donepezil 10 mg Oral tab [Active]; amlodipine 10 mg tab 1 tab once daily [Active]; - PMHx: 07:08 CVA; Hypertension; Seizures; tw2 - Immunization history:: Adult Immunizations. - Social history:: Smoking status: . Screenin:40 Abuse screen: Denies threats or abuse. Nutritional screening: No deficits noted. tw2 Tuberculosis screening: No symptoms or risk factors identified. Fall Risk Secondary diagnosis (15 points) impaired mobility, CVA. Assessment: 07:15 General: Appears in no apparent distress. uncomfortable, Behavior is calm, cooperative, ko1 appropriate for age. Pain: Unable to use pain scale. Patient appears to be grimacing, to be moaning. Neuro: Patient does not talk due to previous stroke, he does moan and say some words but does not communicate.. Cardiovascular: No deficits noted. Respiratory: No deficits noted. GI: No deficits noted. : No deficits noted. EENT: No deficits noted. Derm: No deficits noted. Musculoskeletal: No deficits noted. 08:15 Reassessment: Patient is yelling, gave fentanyl per order for comfort. ko1 08:30 Reassessment: patient is more comfortable and cooperative. ko1 10:00 Reassessment: Patient is combative and yelling, not cooperative, trying to hit staff, ko1 gave valium per order. 10:30 Reassessment: Reassessment: Patient remains agitated but more cooperative. ko1 12:30 Reassessment: Patient trying to get out of bed, pulling at mcallister, pulled out IV and ko1 trying to hit/kick staff. Gave valium and fentanyl per orders. 13:00 Reassessment: Resting comfortably. Restarted IV to left AC and wrapped/taped securely. ko1 14:30 Reassessment: Patient is again combative, trying to kick and hit staff, pulling at ko1 mcallister. gave valium per order. 14:43 Reassessment: Patient slightly more calm but becomes agitated easily. ko1 Vital Signs: 07:05 BP 133 / 55; Pulse 65; Resp 17; Temp 99.7(TE); Pulse Ox 97% on R/A; Weight 79 kg (R); tw2 Pain 10/10; 07:30 BP 129 / 52; Pulse 60; Resp 16; Temp 98.9; Pulse Ox 96% ; ko1 07:45 BP 132 / 78; Pulse 68; Resp 16; Pulse Ox 98% ; ko1 08:00 BP 125 / 50; Pulse 62; Resp 16; Pulse Ox 98% ; ko1 08:15 BP 136 / 55; Pulse 63; Resp 18; Pulse Ox 98% ; ko1 08:15 BP 117 / 55; Pulse 61; Resp 16; Pulse Ox 95% ; ko1 09:44 BP 123 / 56; Pulse 66; Resp 14; Pulse Ox 95% ; ko1 11:00 BP 121 / 80; Pulse 79; Pulse Ox 99% ; ph 12:00 BP 138 / 63; Pulse 61; Pulse Ox 96% ; ph 13:00 BP 160 / 89; Pulse 66; Pulse Ox 97% ; ph 14:00 BP 152 / 73; Pulse 56; Pulse Ox 98% ; ph 15:00 BP 134 / 75; Pulse 83; Resp 22; Temp 98; Pulse Ox 98% ; ko1 ED Course: 06:57 Patient arrived in ED. ja2 07:08 Triage completed. tw2 07:08 Arm band placed on. tw2 07:10 Bed in low position. Call light in reach. Side rails up X2. Adult w/ patient. tw2 07:15 Diaz Harrington MD is Attending Physician. leo 07:15 Client placed on continuous cardiac and pulse oximetry monitoring. NIBP monitoring ko1 applied. 07:19 Samia Ramos, RN is Primary Nurse. ko1 08:00 Cleaned of incontinence. Linen changed. ko1 08:00 Initial lab(s) drawn, by me, by ED staff, sent to lab. EKG done, COVID swab sent to lab.ko1 08:00 Mcallister cath inserted, using sterile technique, 16 Fr., by guncotton packer, balloon inflated, to ko1 gravity drainage, urine specimen collected. 08:20 Inserted saline lock: 22 gauge in right wrist, using aseptic technique. Blood collected.ko1 08:30 Patient taken to ultrasound. via stretcher. ko1 08:35 Basic Metabolic Panel Sent. ko1 08:35 CBC with Diff Sent. ko1 08:35 LFT's Sent. ko1 08:35 Magnesium Sent. ko1 08:36 NT PRO-BNP Sent. ko1 08:36 PT-INR Sent. ko1 08:36 Troponin HS Sent. ko1 08:36 SARS RAPID Sent. ko1 09:08 US Extremity Venous W Compression Pankaj In Process Unspecified. EDMS 09:38 XRAY Chest (1 view) In Process Unspecified. EDMS 09:38 Pelvis XRAY In Process Unspecified. EDMS 09:38 Femur Left XRAY In Process Unspecified. EDMS 09:38 Tib Fib Left XRAY In Process Unspecified. EDMS 09:40 Patient moved back from ultrasound. ko1 10:21 Telly Harp MD is Hospitalizing Provider. leo 11:01 Head C Spine Cap W Con In Process Unspecified. EDMS 12:30 Inserted saline lock: 18 gauge in left antecubital area, using aseptic technique. ph 15:09 PTT, Activated Partial Thromb Sent. ko1 15:09 Protime (+INR) Sent. ko1 15:09 Protime (+INR) Sent. ko1 15:09 PTT, Activated Partial Thromb Sent. ko1 15:10 Phosphorus Sent. ko1 15:10 Phosphorus Sent. ko1 15:10 Magnesium Sent. ko1 15:10 Magnesium Sent. ko1 15:10 Creatine Phosphokinase Sent. ko1 15:10 Creatine Phosphokinase Sent. ko1 15:10 Creatine Phosphokinase Sent. ko1 15:10 Creatine Phosphokinase Sent. ko1 15:10 Comprehensive Metabolic Panel Sent. ko1 15:10 CBC with Automated Diff Sent. ko1 15:10 Comprehensive Metabolic Panel Sent. ko1 15:10 Basic Metabolic Panel Sent. ko1 15:10 CBC with Automated Diff Sent. ko1 15:10 Basic Metabolic Panel Sent. ko1 15:10 Urinalysis Sent. ko1 15:51 Report given to Zara. ko1 Administered Medications: 08:20 Drug: foLIC Acid 1 mg Route: IVPB; Site: right wrist; ph 08:21 Drug: NS 0.9% 500 ml Route: IV; Rate: bolus; Site: right wrist; ph 08:21 Drug: fentaNYL (PF) 25 mcg Route: IVP; Site: right wrist; ph 08:21 Drug: Zofran (Ondansetron) 4 mg Route: IVP; Site: right wrist; ph 10:08 Drug: Valium (diazepam) 2 mg Route: IVP; Site: right wrist; ko1 11:40 Drug: Rocephin (cefTRIAXone) 1 grams Route: IV; Rate: per protocol; Site: right wrist; ko1 12:38 Drug: Valium (diazepam) 2 mg Route: IVP; Site: left antecubital; ko1 12:41 Drug: fentaNYL (PF) 25 mcg Route: IVP; Site: left antecubital; ko1 15:15 Drug: Valium (diazepam) 2 mg Route: IVP; Site: left antecubital; ko1 Medication: 07:41 VIS not applicable for this client. tw2 Intake: 12:42 IV: 750ml (IV Fluid); Total: 750ml. ko1 Output: 12:42 Urine: 1500ml (Mcallister); Total: 1500ml. ko1 Outcome: 10:22 Decision to Hospitalize by Provider. [facility] [facility] 17:18 Patient left the ED. ko1 Signatures: Dispatcher [employer] EDMS Diaz Harrington MD MD cha Hall, Patricia RN RN Kavita Goldsmith RN RN tw2 Marlen Gómez [facility] Samia Ramos, MISHA RN ko1 Corrections: (The following items were deleted from the chart) 07:41 07:40 Fall Risk Secondary diagnosis (15 points) impaired mobility, tw2 tw2 08:57 08:47 Patient moved back from [facility]. ko1 ko1 14:26 08:20 Reassessment: Patient yelling, combative. Gave fentanyl for comfort. ph 14:39 10:30 Reassessment: Patient remains agitated but more cooperative. Reassessment: ko1 Patient remains agitated but more cooperative. ko1 14:40 12:30 Reassessment: Patient trying to get out of bed, pulling at mcallister, pulled out IV ko1 and trying to hit/kick staff. ko1 14:42 13:00 Reassessment: Resting comfortably. ko1 ko1
[2022-05-20 10:32] LABS: Albumin 3.1 g/dL (3.4-5.0); Bilirubin Direct 0.4 mg/dL (0-0.2); Bilirubin Total 1.5 mg/dL (0.2-1.0); Magnesium 2.3 mg/dL (1.8-2.4); Potassium 4.1 mmol/L (3.5-5.1); Protein, Total 6.5 g/dL (6.4-8.2); Troponin High Sensitivity 10.1 pg/mL (<58.9)
--- NOTE | 2022-05-20 10:37 | P.HP ---
Certification for Inpatient With expected LOS: >2 Midnights Patient will require the following post-hospital care: Rehabilitation Practitioner: I am a practitioner with admitting privileges, knowledge of patient current condition, hospital course, and medical plan of care. Services: Services provided to patient in accordance with Admission requirements found in Title 42 Section 412.3 of the Code of Federal Regulations <Funmi Dela Cruz - Last Filed: 05/20/22 14:45> Patient History Date of Service: 05/20/22 Primary Care Provider: Dr. Robles Reason for admission: Cardiomegaly, dementia, weakness History of Present Illness: Mr. Matias is an 81 yo male with a history of CVA 8 years ago. Spouse states he has a resultant seizure disorder and dementia. Pt's last seizure was over a year ago. Tuesday Mr. Matias was seen by Dr. Linares for a bladder scope. Mrs. Matias states post scope patient was ambulatory and at baseline. Tuesday patient was yelling out with pain that seemed to be coming from his legs. Last pm pt was not able to stand on his own, she and her Daugter assisted him with ambulation. During the night, Mr. Matias did get up on his own but fell onto his elbow and has been increasingly agitated and weak. Mr. Matias was evaluated in the ED and admitted for 1. Cardiomegaly, 2. Dementia, 3. Weakness. On evaluation of Mr. Matias, he was yelling out in intervals, asking "Please". Pt appears dry, uncomfortable but exam is limited by dementia, aphasia, and discomfort. Labs from the ED remain pending. History mostly obtained per the Patient's , Manju. . She states pt has been admitted here at this hospital "many many times" but I cannot find any hospitalization records except ED visits. Home medications list reviewed: Yes - Past Medical/Surgical History Diabetic: No -: HTN -: CVA, residual facial droop -: DIVERTICULITIS -: Expressive dysphasia -: Possible history of Seizures -: BPH -: COLON RESECTION - Social History Smoking Status: Unknown if ever smoked Alcohol use: No CD- Drugs: No Caffeine use: Yes Place of Residence: Home (Pt lives at home with his , Manju. Daughter helps with problems. Grandson assited pt to car to come to hospital today) <Funmi Dela Cruz - Last Filed: 05/20/22 14:45> Date of Service: 05/20/22 <Telly Harp - Last Filed: 05/20/22 20:10> Allergies No Known Allergies Allergy (Verified 08/24/14 23:15) Home Medications: Oxcarbazepine 1 tab PO BID 09/13/15 Pravastatin Sodium 1 tab PO BEDTIME 09/13/15 Amlodipine Besylate 2 tab PO DAILY 04/19/16 Loratadine 1 tab PO DAILY 04/19/16 Donepezil HCl 1 tab PO DAILY 05/20/22 Losartan Potassium [Cozaar] 1 tab PO DAILY 05/20/22 Memantine HCl 10 mg PO BID 05/20/22 Nitrofurantoin Monohyd/M-Cryst [Nitrofurantoin [place]-Mcr 100 mg] 1 cap PO BID 05/20/22 Tamsulosin [Flomax] 1 tab PO BEDTIME 05/20/22 Review of Systems General: Weakness, Malaise Eyes: Unremarkable ENT: Unremarkable Respiratory: Unremarkable Cardiovascular: As per HPI Gastrointestinal: Unremarkable Genitourinary: Other (recent manipulation per Dr. Linares), As per HPI Musculoskeletal: Back Pain, Leg Pain, As per HPI Integumentary: Other (abrasions to elbows) Neurological: Weakness, Confusion, As per HPI Lymphatics: As per HPI <Funmi Dela Cruz - Last Filed: 05/20/22 14:45> Physical Examination - Vital Signs Temperature: 98.3 F Blood Pressure: 125/56 Pulse: 66 Respirations: 18 Pulse Ox (%): 91 - Physical Exam General: Disheveled, Demented, Mild distress HEENT: Atraumatic Neck: Supple Respiratory: Diminished Cardiovascular: No edema Capillary refill: <2 Seconds Gastrointestinal: Normal bowel sounds Musculoskeletal: Contractures Integumentary: No rashes, Other (abrasions to elbows) Neurological: Other (gait not tested), Abnormal speech Urinary: Other (awaiting ED process, may need cath, not ordered yet) External genitalia: No edema - Studies Laboratory Data (last 24 hrs) 05/20/22 08:30: PT 13.5 H, INR 1.22 05/20/22 08:25: WBC 10.50, Hgb 11.2 L, Hct 32.0 L, Plt Count 201 <Funmi Dela Cruz - Last Filed: 05/20/22 14:45> - Studies Laboratory Data (last 24 hrs) 05/20/22 09:54: Sodium 140, Potassium 4.1, BUN 21 H, Creatinine 1.11, Glucose 102, Magnesium 2.3, Total Bilirubin 1.5 H, AST 15, ALT 17, Alkaline Phosphatase 73 05/20/22 08:30: PT 13.5 H, INR 1.22 05/20/22 08:25: WBC 10.50, Hgb 11.2 L, Hct 32.0 L, Plt Count 201 <Telly Harp - Last Filed: 05/20/22 20:10> Assessment and Plan - Problems (Diagnosis) (1) Weakness Onset Date: ~05/19/22 Current Visit: Yes Status: Acute Plan: Pt unable to stand yesterday. CT in ED pending. Consult PT for strength training. Evaluate electrolytes, kidney function, and albumin (2) History of CVA (cerebrovascular accident) Current Visit: No Status: Acute Plan: Pt has known CVA, dementia. Continue dementia and seizure medications. Fall risk. PT initiation. Aspirin 81mg po daily (3) Seizure disorder Current Visit: No Status: Chronic Plan: Continue current medications and maintain suction at bedside (4) UTI (urinary tract infection) Current Visit: Yes Status: Acute Plan: Lopez with aseptic maintenance. IV abx. Pt to f/u with Dr. Linares s/p hospitalization Qualifiers: Urinary tract infection type: acute cystitis Hematuria presence: without hematuria Qualified Code(s): N30.00 - Acute cystitis without hematuria (5) Urinary retention Current Visit: Yes Status: Acute Plan: Lopez, f/u with Dr. Linares outpatient - Advance Directives Does patient have a Living Will: No Does patient have a Durable POA for Healthcare: No - Code Status/Comfort Care Code Status Assessed: Yes (Full) <Funmi Dela Cruz - Last Filed: 05/20/22 14:45> Physician Review: Patient Assessed, Agree with Above Assessment and Plan <Telly Harp - Last Filed: 05/20/22 20:10>
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
--- NOTE | 2022-05-20 11:15 | RAD REPORT ---
EXAM DESCRIPTION: [place] Single View05/20/2022 9:36 am CLINICAL HISTORY: Chest pain COMPARISON: 2018 FINDINGS: The lungs appear clear of acute infiltrate. The heart is mildly enlarged IMPRESSION: No acute abnormalities displayed
--- NOTE | 2022-05-20 11:15 | RAD REPORT ---
EXAM DESCRIPTION: RAD - Femur Left - 05/20/2022 9:38 am CLINICAL HISTORY: Left leg pain FINDINGS: The bones are osteoporotic. No fracture is seen.
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
[2022-05-20] MEDS ORDERED: CEFTRIAXONE 1000 MG/VIAL ONE (11:39)
[2022-05-20] MEDS ORDERED: NA CHLORIDE 0.9% 50 ML ONE (11:40)
[2022-05-20] MEDS ORDERED: MORPHINE 4 MG/ML SYR IV PRN (11:48)
[2022-05-20] MEDS ORDERED: NA CHLORIDE 0.9% 1,000 ML IV SCH (12:00)
[2022-05-20 12:13] LABS: Urine Blood 1+ (Negative); Urine Glucose Negative (Negative); Urine Protein Negative (Negative); Urine Specific Gravity 1.015 (1.005-1.030); Urine pH 6.5 (5.0-7.0)
[2022-05-20 12:25] LABS: Urine Mucus Slight /HPF (None Seen); Urine RBC <5 /HPF (None Seen)
[2022-05-20] MEDS ORDERED: ALBUTEROL 2.5 MG/3 ML NEB SOL NEB SCH (14:00)
[2022-05-20] MEDS ORDERED: ALBUTEROL 2.5 MG/3 ML NEB SOL ONE (14:27)
[2022-05-20 18:30] VITALS: BMI 30.8
[2022-05-20] MEDS: TAMSULOSIN 0.4 MG SR CAP PO SCH (20:43)
[2022-05-20] MEDS: OXcarbazepine 150 MG TAB PO SCH (20:43)
[2022-05-20] MEDS: MEMANTINE HCL 10 MG TABLET PO SCH (20:44)
[2022-05-20] MEDS: DONEPEZIL HCL 5 MG TAB PO SCH (20:44)
[2022-05-20] MEDS: ATORVASTATIN 10 MG TAB PO SCH (20:44)
[2022-05-20] MEDS ORDERED: OXCARBAZEPINE 300 MG PO SCH (21:00)
[2022-05-20] MEDS ORDERED: HOME MED 1 EA UNK (Pravastatin Sodium [Pravastatin Sodium] 40 MG Tablet) PO SCH (21:00)
[2022-05-20] MEDS ORDERED: HALOPERIDOL LACT 5 MG/ML INJ IV ONE (22:32)
[2022-05-20] MEDS ORDERED: MORPHINE 2 MG/ML SYR IV ONE (23:51)
[2022-05-21] MEDS ORDERED: MORPHINE 2 MG/ML SYR IM PRN (08:18)
[2022-05-21 08:47] LABS: Absolute Lymphocytes (CBC) 0.9 K/uL (0.7-4.9); Hematocrit 39.4 % (39.6-49.0); MCV 96.8 fL (80-100); MPV 8.7 fL (7.6-11.3); RBC Red Blood Cell Count 4.07 M/uL (4.33-5.43)
[2022-05-21] MEDS ORDERED: HOME MED 1 EA UNK (Donepezil Hcl [Donepezil Hcl] 10 MG Tablet) PO SCH (09:00)
[2022-05-21] MEDS ORDERED: HOME MED 1 EA UNK (Losartan Potassium [Cozaar] 100 MG Tablet) PO SCH (09:00)
[2022-05-21] MEDS ORDERED: ENOXAPARIN 40 MG/0.4 ML SQ SCH (09:00)
[2022-05-21] MEDS: CEFTRIAXONE 1,000 MG in NA CHLORIDE 0.9% 50 ML IVPB SCH (09:10)
[2022-05-21] MEDS: ASPIRIN 81 MG CHEWABLE TABLET PO SCH (09:10)
[2022-05-21] MEDS: AMLODIPINE 5 MG TAB PO SCH (09:11)
[2022-05-21] MEDS: LOSARTAN POTASSIUM 50 MG TABLET PO SCH (09:11)
[2022-05-21] MEDS: OXcarbazepine 150 MG TAB PO SCH ×3 (09:11→22:17)
[2022-05-21] MEDS: LORATADINE 10 MG TAB PO SCH (09:12)
[2022-05-21] MEDS: MEMANTINE HCL 10 MG TABLET PO SCH ×3 (09:12→22:17)
[2022-05-21] MEDS: MORPHINE 2 MG/ML SYR IV PRN ×3 (09:12→22:15)
--- NOTE | 2022-05-21 12:35 | EKG ---
Test Date: 2022-05-20 Test Time: 08:06:46 Fishing Tool Supervisor: DEMI MEASUREMENT RESULTS: Intervals: Rate: 66 NH: 136 QRSD: 142 QT: 448 QTc: 469 [place]: P: 43 NH: 136 QRS: -47 T: 35 INTERPRETIVE STATEMENTS: Normal sinus rhythm Left axis deviation Right bundle branch block Abnormal ECG Compared to ECG 04/23/2020 09:18:00 Left-axis deviation now present Ventricular premature complex(es) no longer present Myocardial infarct finding no longer present Electronically Signed On 05-21-22 12:32:38 CDT by Bertrand Moyer
--- NOTE | 2022-05-21 18:51 | P.PN ---
Subjective Date of Service: 05/21/22 Primary Care Provider: Dr. Robles Chief Complaint: Cardiomegaly, dementia, weakness Subjective: No new changes No acute events overnight. History is limited given his dementia and expressive aphasia. He has been on ceftriaxone for his UTI. This afternoon, he flagged sepsis criteria. Review of Systems is unable to be obtained Physical Examination - Vital Signs Temperature: 98.9 F Blood Pressure: 155/70 Pulse: 108 Respirations: 26 Pulse Ox (%): 92 - Physical Exam General: Alert, In no apparent distress, Demented, Other (expressive aphasia) HEENT: Atraumatic, Mucous membr. moist/pink, EOMI, Sclerae nonicteric Neck: Supple, JVD not distended Respiratory: Clear to auscultation bilaterally, Normal air movement Cardiovascular: Regular rate/rhythm, Normal S1 S2, No gallops, No rubs, No murmurs, Edema (trace) Gastrointestinal: Normal bowel sounds, Soft and benign, Non-distended, No tenderness, No rebound, No guarding Musculoskeletal: No clubbing Integumentary: No rashes Neurological: Other (expressive aphasia), Dementia Assessment And Plan - Plan # Sepsis likely secondary to Urinary Tract Infection He meets sepsis criteria based on temperature HR > 90 bpm, RR > 20 breaths/min, and WBC > 12,000, and the suspected source is a UTI. 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 Linares as an outpatient Telly Harp M.D.
[2022-05-21] MEDS: TAMSULOSIN 0.4 MG SR CAP PO SCH ×2 (21:00→22:18)
[2022-05-21] MEDS: DONEPEZIL HCL 5 MG TAB PO SCH ×2 (21:00→22:17)
[2022-05-21] MEDS: ATORVASTATIN 10 MG TAB PO SCH ×2 (21:00→22:18)
[2022-05-22 06:33] LABS: Absolute Lymphocytes (CBC) 0.6 K/uL (0.7-4.9); Hematocrit 39.1 % (39.6-49.0); Lymphocytes % 3.6 % (15.3-44.8); MCV 95.8 fL (80-100); MPV 8.1 fL (7.6-11.3); RBC Red Blood Cell Count 4.08 M/uL (4.33-5.43)
[2022-05-22] MEDS: CEFTRIAXONE 1,000 MG in NA CHLORIDE 0.9% 50 ML IVPB SCH (09:45)
[2022-05-22] MEDS: LORATADINE 10 MG TAB PO SCH (09:45)
[2022-05-22] MEDS: LOSARTAN POTASSIUM 50 MG TABLET PO SCH (09:45)
[2022-05-22] MEDS: MEMANTINE HCL 10 MG TABLET PO SCH ×2 (09:45→20:25)
[2022-05-22] MEDS: ASPIRIN 81 MG CHEWABLE TABLET PO SCH (09:45)
[2022-05-22] MEDS: OXcarbazepine 150 MG TAB PO SCH ×2 (09:45→20:25)
[2022-05-22] MEDS: AMLODIPINE 5 MG TAB PO SCH (09:45)
--- NOTE | 2022-05-22 18:37 | P.PN ---
Subjective Date of Service: 05/22/22 Primary Care Provider: Dr. Robles Chief Complaint: Cardiomegaly, dementia, weakness No acute events overnight. History is limited given his dementia and expressive aphasia. No concerns from bedside RN. No family at bedside available for collateral history. Review of Systems is unable to be obtained Physical Examination - Vital Signs Temperature: 97.5 F Blood Pressure: 168/75 Pulse: 80 Respirations: 21 Pulse Ox (%): 93 - Studies Microbiology Data (last 24 hrs): 05/20/22 12:08 Clean Catch Urine [place] Count - Final BETWEEN 10,000 & 100,000 CFU/ML 05/20/22 12:08 Clean Catch Urine - Final MIXED MARK. Assessment And Plan - Plan - Physical Exam General: Alert, In no apparent distress, Demented, Other (expressive aphasia) HEENT: Atraumatic, Mucous membr. moist/pink, EOMI, Sclerae nonicteric Neck: Supple, JVD not distended Respiratory: Clear to auscultation bilaterally, Normal air movement Cardiovascular: Regular rate/rhythm, Normal S1 S2, No gallops, No rubs, No murmurs, Edema (trace) Gastrointestinal: Normal bowel sounds, Soft and benign, Non-distended, No tenderness, No rebound, No guarding Musculoskeletal: No clubbing Integumentary: No rashes Neurological: Other (expressive aphasia), Dementia # Sepsis likely secondary to Urinary Tract Infection He meets sepsis criteria based on temperature HR > 90 bpm, RR > 20 breaths/min, and WBC > 12,000, and the suspected source is a UTI. - Activated Code Sepsis - Sepsis order set was initiated - Initial Lactate was 1.4 - Blood cultures drawn after antibiotics were given because he was started on antibiotics prior to sepsis criteria being met - Broad spectrum antibiotics started: Ceftriaxone - In regards to fluids: - 30 mL/kg of IV fluids was not administered given SBP > 90, MAP > 65, lactic acid < 4 # History of Cerebrovascular Accident with Expressive Aphasia and Residual F acial Droop # Deconditioning with Generalized Weakness - PT consulted - recommendations appreciated - Unable to participate at this time given mental status - Continue home aspirin, atorvastatin # Seizure Disorder - Continue home oxcarbazepine # Dementia - Continue home donepezil, memantine # Hypertension - Continue home losartan,amlodipine # Benign Prostatic Hyperplasia # Urinary Retention s/p Recent Outpatient Cystoscopy - Continue home tamsulosin - Follow-up with Dr. Linares as an outpatient Telly Harp M.D.
[2022-05-22] MEDS: DONEPEZIL HCL 5 MG TAB PO SCH (20:25)
[2022-05-22] MEDS: MORPHINE 2 MG/ML SYR IV PRN (20:25)
[2022-05-22] MEDS: TAMSULOSIN 0.4 MG SR CAP PO SCH (20:25)
[2022-05-22] MEDS: ATORVASTATIN 10 MG TAB PO SCH (20:25)
[2022-05-22 20:42] LABS: Hematocrit 39.9 % (39.6-49.0); Lymphocytes % 6.4 % (15.3-44.8); MCV 97.3 fL (80-100); MPV 8.1 fL (7.6-11.3)
[2022-05-23 05:51] LABS: Absolute Lymphocytes (CBC) 0.9 K/uL (0.7-4.9); Hematocrit 43.3 % (39.6-49.0); Lymphocytes % 7.8 % (15.3-44.8); MCV 97.3 fL (80-100); MPV 8.6 fL (7.6-11.3); RBC Red Blood Cell Count 4.45 M/uL (4.33-5.43)
[2022-05-23 06:06] LABS: Potassium 3.8 mmol/L (3.5-5.1)
[2022-05-23] MEDS: LOSARTAN POTASSIUM 50 MG TABLET PO SCH (08:54)
[2022-05-23] MEDS: MEMANTINE HCL 10 MG TABLET PO SCH ×2 (08:55→20:54)
[2022-05-23] MEDS: OXcarbazepine 150 MG TAB PO SCH ×2 (08:55→20:54)
[2022-05-23] MEDS: CEFTRIAXONE 1,000 MG in NA CHLORIDE 0.9% 50 ML IVPB SCH (08:55)
[2022-05-23] MEDS: ASPIRIN 81 MG CHEWABLE TABLET PO SCH (08:55)
[2022-05-23] MEDS: AMLODIPINE 5 MG TAB PO SCH (08:55)
[2022-05-23] MEDS: LORATADINE 10 MG TAB PO SCH (09:00)
--- NOTE | 2022-05-23 15:59 | EKG ---
Test Date: 2022-05-21 Test Time: 14:53:16 Community Development Officer: STEVE MEASUREMENT RESULTS: Intervals: Rate: 110 PA: 128 QRSD: 132 QT: 356 QTc: 481 [place]: P: 58 PA: 128 QRS: 266 T: 46 INTERPRETIVE STATEMENTS: Sinus tachycardia with premature supraventricular complexes and premature ventricular complexes or fusion complexes Right bundle branch block Abnormal ECG Compared to ECG 05/20/2022 08:06:46 Atrial premature complex(es) now present Fusion complex(es) now present Ventricular premature complex(es) now present Sinus rhythm no longer present Left-axis deviation no longer present Electronically Signed On 05-23-22 15:55:42 CDT by Bertrand Moyer
--- NOTE | 2022-05-23 17:55 | P.PN ---
Subjective Date of Service: 05/23/22 Primary Care Provider: Dr. Robles Chief Complaint: Cardiomegaly, dementia, weakness No acute events overnight. History is limited given his dementia and expressive aphasia. No concerns from bedside RN. There is difficult completing PT evaluation due to current mental/neurologic status. Review of Systems is unable to be obtained Physical Examination - Vital Signs Temperature: 97.7 F Blood Pressure: 137/63 Pulse: 69 Respirations: 20 Pulse Ox (%): 95 Assessment And Plan - Plan - Physical Exam General: Alert, In no apparent distress, Demented, Other (expressive aphasia) HEENT: Atraumatic, Mucous membr. moist/pink, EOMI, Sclerae nonicteric Neck: Supple, JVD not distended Respiratory: Clear to auscultation bilaterally, Normal air movement Cardiovascular: Regular rate/rhythm, Normal S1 S2, No gallops, No rubs, No murmurs, Edema (trace) Gastrointestinal: Normal bowel sounds, Soft and benign, Non-distended, No tenderness, No rebound, No guarding Musculoskeletal: No clubbing Integumentary: No rashes Neurological: Other (expressive aphasia), Dementia # Sepsis likely secondary to Urinary Tract Infection He meets sepsis criteria based on temperature HR > 90 bpm, RR > 20 breaths/min, and WBC > 12,000, and the suspected source is a UTI. 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 Linares as an outpatient - Will try to contact family for discussion on placement. Will likely not happen over the weekend. Telly Harp M.D.
[2022-05-23] MEDS: TAMSULOSIN 0.4 MG SR CAP PO SCH (20:54)
[2022-05-23] MEDS: DONEPEZIL HCL 5 MG TAB PO SCH (20:54)
[2022-05-23] MEDS: ATORVASTATIN 10 MG TAB PO SCH (20:54)
[2022-05-23] MEDS: MORPHINE 2 MG/ML SYR IV PRN (20:55)
[2022-05-24 03:46] LABS: Absolute Lymphocytes (CBC) 0.9 K/uL (0.7-4.9); Hematocrit 37.9 % (39.6-49.0); Lymphocytes % 7.7 % (15.3-44.8); MCV 95.3 fL (80-100); MPV 8.4 fL (7.6-11.3); RBC Red Blood Cell Count 3.97 M/uL (4.33-5.43)
--- NOTE | 2022-05-24 06:44 | ECHO ---
HEIGHT: 5 ft 3 in WEIGHT: 174 lb 3.2 oz DATE OF STUDY: 05/21/[address]: Telly Harp MD 2-DIMENSIONAL: YES M.MODE: YES DOPPLER: YES COLOR FLOW: YES TDS: PORTABLE: YES DEFINITY: BUBBLE STUDY: DIAGNOSIS: CHEST PAIN CARDIAC HISTORY: CATHERIZATION: NO SURGERY: NO PROSTHETIC VALVE: NO PACEMAKER: NO MEASUREMENTS (cm) DIASTOLIC (NORMALS) SYSTOLIC (NORMALS) IVSd 1.1 (0.6-1.2) LA Diam 3.1 (1.9-4.0) LVEF 68% LVIDd 4.5 (3.5-5.7) LVIDs 2.8 (2.0-3.5) %FS 37% LVPWd 1.0 (0.6-1.2) Ao Diam 3.2 (2.0-3.7) 2 DIMENSIONAL ASSESSMENT: RIGHT ATRIUM: NORMAL LEFT ATRIUM: NORMAL RIGHT VENTRICLE: NORMAL LEFT VENTRICLE: NORMAL TRICUSPID VALVE: NORMAL MITRAL VALVE: NORMAL PULMONIC VALVE: NORMAL AORTIC VALVE: NORMAL PERICARDIAL EFFUSION: NONE AORTIC ROOT: NORMAL LEFT VENTRICULAR WALL MOTION: NORMAL DOPPLER/COLOR FLOW: MILD MITRAL AND TRICUSPID REGURGITATION. COMMENTS: MILD MITRAL AND TRICUSPID REGURGITATION. NORMAL LEFT VENTRICULAR SIZE AND FUNCTION. NO WALL MOTION ABNORMALITY. TECHNOLOGIST: LUIS BLAIR
[2022-05-24] MEDS: LOSARTAN POTASSIUM 50 MG TABLET PO SCH (09:00)
[2022-05-24] MEDS: OXcarbazepine 150 MG TAB PO SCH ×2 (09:01→20:48)
[2022-05-24] MEDS: ASPIRIN 81 MG CHEWABLE TABLET PO SCH (09:02)
[2022-05-24] MEDS: CEFTRIAXONE 1,000 MG in NA CHLORIDE 0.9% 50 ML IVPB SCH (09:02)
[2022-05-24] MEDS: LORATADINE 10 MG TAB PO SCH (09:02)
[2022-05-24] MEDS: MEMANTINE HCL 10 MG TABLET PO SCH ×2 (09:02→20:48)
[2022-05-24] MEDS: AMLODIPINE 5 MG TAB PO SCH (09:02)
[2022-05-24] MEDS: TAMSULOSIN 0.4 MG SR CAP PO SCH (20:48)
[2022-05-24] MEDS: DONEPEZIL HCL 5 MG TAB PO SCH (20:48)
[2022-05-24] MEDS: ENSURE ENLIVE 237 ML CAN PO SCH (20:48)
[2022-05-24] MEDS: ATORVASTATIN 10 MG TAB PO SCH (20:48)
[2022-05-25] MEDS: ENSURE ENLIVE 237 ML CAN PO SCH ×2 (09:00→21:48)
[2022-05-25] MEDS: MEMANTINE HCL 10 MG TABLET PO SCH ×2 (11:00→21:48)
[2022-05-25] MEDS: ASPIRIN 81 MG CHEWABLE TABLET PO SCH (11:00)
[2022-05-25] MEDS: AMLODIPINE 5 MG TAB PO SCH (11:00)
[2022-05-25] MEDS: LOSARTAN POTASSIUM 50 MG TABLET PO SCH (11:00)
[2022-05-25] MEDS: CEFTRIAXONE 1,000 MG in NA CHLORIDE 0.9% 50 ML IVPB SCH (11:00)
[2022-05-25] MEDS: LORATADINE 10 MG TAB PO SCH (11:00)
[2022-05-25] MEDS: OXcarbazepine 150 MG TAB PO SCH ×2 (11:15→21:48)
--- NOTE | 2022-05-25 12:58 | P.PN ---
Subjective Date of Service: 05/24/22 Patient is doing well. Clinical symptoms are stable. Patient has a history of stroke and is max assist. Family wanting to go to a jail facility for rehab. Review of Systems is unable to be obtained Physical Examination - Vital Signs Temperature: 98.4 F Blood Pressure: 127/60 Pulse: 75 Respirations: 14 Pulse Ox (%): 95 - Physical Exam General: Alert, In no apparent distress HEENT: Atraumatic, PERRLA, EOMI Neck: Supple, JVD not distended Respiratory: Clear to auscultation bilaterally, Normal air movement Cardiovascular: Regular rate/rhythm, Normal S1 S2 Gastrointestinal: Normal bowel sounds, No tenderness Musculoskeletal: No tenderness Integumentary: No rashes Neurological: Normal speech, Normal tone, Normal affect Lymphatics: No axilla or inguinal lymphadenopathy - Studies Medications List Reviewed: Yes Assessment & Plan - Problems (Diagnosis) (1) UTI (urinary tract infection) Current Visit: Yes Status: Acute Qualifiers: Urinary tract infection type: acute cystitis Hematuria presence: without hematuria Qualified Code(s): N30.00 - Acute cystitis without hematuria (2) Urinary retention Current Visit: Yes Status: Acute (3) History of CVA (cerebrovascular accident) Current Visit: No Status: Acute (4) HTN (hypertension) Current Visit: No Status: Chronic Qualifiers: Hypertension type: essential hypertension Qualified Code(s): I10 - Essential (primary) hypertension (5) Hyperlipidemia Current Visit: No Status: Chronic Qualifiers: Hyperlipidemia type: unspecified Qualified Code(s): E78.5 - Hyperlipidemia, unspecified (6) Seizure disorder Current Visit: No Status: Chronic - Plan Plan: 1. Continue with antibiotics 2. Arrangement for jail facility 3. Physical therapy consultation 4. Speech therapy consultation 5. Continue with monitoring labs 6. GI DVT prophylaxis Discharge Plan: Home Plan to discharge in: Greater than 2 days - Advance Directives Does patient have a Living Will: No Does patient have a Durable POA for Healthcare: No - Code Status/Comfort Care Code Status Assessed: Yes Code Status: Full Code Physician Review: Patient Assessed, Agree with Above Assessment and Plan Critical Care: No Time Spent Managing PTS Care (In Minutes): 35
--- NOTE | 2022-05-25 13:02 | P.DS ---
Discharge Date: 05/25/22 Primary Care Provider: Dr. Robles Reason for Admission: Cardiomegaly, dementia, weakness - Problems (1) UTI (urinary tract infection) Current Visit: Yes Status: Acute Qualifiers: Urinary tract infection type: acute cystitis Hematuria presence: without hematuria Qualified Code(s): N30.00 - Acute cystitis without hematuria (2) Urinary retention Current Visit: Yes Status: Acute (3) History of CVA (cerebrovascular accident) Current Visit: No Status: Acute (4) HTN (hypertension) Current Visit: No Status: Chronic Qualifiers: Hypertension type: essential hypertension Qualified Code(s): I10 - Essential (primary) hypertension (5) Hyperlipidemia Current Visit: No Status: Chronic Qualifiers: Hyperlipidemia type: unspecified Qualified Code(s): E78.5 - Hyperlipidemia, unspecified (6) Seizure disorder Current Visit: No Status: Chronic Brief History of Present Illness: Mr. Matias is an 81 yo male with a history of CVA 8 years ago. Spouse states he has a resultant seizure disorder and dementia. Pt's last seizure was over a year ago. Tuesday Mr. Matias was seen by Dr. Linares for a bladder scope. Mrs. Matias states post scope patient was ambulatory and at baseline. Tuesday patient was yelling out with pain that seemed to be coming from his legs. Last pm pt was not able to stand on his own, she and her Daugter assisted him with ambulation. During the night, Mr. Matias did get up on his own but fell onto his elbow and has been increasingly agitated and weak. Mr. Matias was evaluated in the ED and admitted for 1. Cardiomegaly, 2. Dementia, 3. Weakness. On evaluation of Mr. Matias, he was yelling out in intervals, asking "Please". Pt appears dry, uncomfortable but exam is limited by dementia, aphasia, and discomfort. Labs from the ED remain pending. History mostly obtained per the Patient's , Manju. . She states pt has been admitted here at this hospital "many many times" but I cannot find any hospitalization records except ED visits. Hospital Course: Patient has done well during hospital stay. Patient working with physical therapy. Patient is max assist. We did make arrangements for patient to go to a residential facility at [place]. Patient will continue with antibiotics for 10 more days. At this time he is stable for discharge with outpatient follow-up with his PCP and to continue with physical therapy at [facility]. Vital Signs/Physical Exam: Temp Pulse Resp BP Pulse Ox 98.4 F 75 14 127/60 95 05/25/22 12:58 05/25/22 12:58 05/25/22 12:58 05/25/22 12:58 05/25/22 12:58 General: Alert, In no apparent distress Laboratory Data at Discharge: WBC 12.30 K/uL (4.3-10.9) H 05/24/22 03:26 Hgb 13.1 g/dL (13.6-17.9) L D 05/24/22 03:26 Hct 37.9 % (39.6-49.0) L 05/24/22 03:26 Plt Count 289 K/uL (152-406) 05/24/22 03:26 PT 13.5 SECONDS (9.5-12.5) H 05/20/22 08:30 INR 1.22 05/20/22 08:30 Sodium 138 mmol/L (136-145) 05/23/22 05:24 Potassium 3.8 mmol/L (3.5-5.1) 05/23/22 05:24 BUN 21 mg/dL (7-18) H 05/23/22 05:24 Creatinine 0.93 mg/dL (0.55-1.3) 05/23/22 05:24 Glucose 114 mg/dL (74-106) H 05/23/22 05:24 Magnesium 2.3 mg/dL (1.8-2.4) 05/20/22 09:54 Total Bilirubin 1.5 mg/dL (0.2-1.0) H 05/20/22 09:54 AST 15 U/L (15-37) 05/20/22 09:54 ALT 17 U/L (12-78) 05/20/22 09:54 Alkaline Phosphatase 73 U/L (45-117) 05/20/22 09:54 Home Medications: Oxcarbazepine 1 tab PO BID 09/13/15 Pravastatin Sodium 1 tab PO BEDTIME 09/13/15 Amlodipine Besylate 2 tab PO DAILY 04/19/16 Loratadine 1 tab PO DAILY 04/19/16 Donepezil HCl 1 tab PO DAILY 05/20/22 Losartan Potassium [Cozaar] 1 tab PO DAILY 05/20/22 Memantine HCl 10 mg PO BID 05/20/22 Nitrofurantoin Monohyd/M-Cryst [Nitrofurantoin [place]-Mcr 100 mg] 1 cap PO BID 05/20/22 Tamsulosin [Flomax*] 1 tab PO BEDTIME 05/20/22 Aspirin Chewable [Aspirin Chewable*] 81 mg PO DAILY #30 tab.chew 05/25/22 Cefdinir [Omnicef] 300 mg PO BID #20 05/25/22 Ensure Enlive 237 ml PO BID #60 can 05/25/22 New Medications: Aspirin Chewable [Aspirin Chewable*] 81 mg PO DAILY #30 tab.chew Ensure Enlive 237 ml PO BID #60 can Cefdinir [Omnicef] 300 mg PO BID #20 Physician Discharge Instructions: -DC IV and DC home -Follow-up with PCP in 1 to 2 weeks -Follow-up with Neurology in 1 to 2 weeks -Please call Dr. Vo at [phone] if any questions regarding hospital stay -Please call nursing station at [phone] if any nursing or medication questions -Return to the emergency room if symptoms worsen Diet: AHA Activity: Fall precautions Followup: Brayden Robles MD [Primary Care Provider] - Time spent managing pt's care (in minutes): 35
[2022-05-25] MEDS: DONEPEZIL HCL 5 MG TAB PO SCH (21:48)
[2022-05-25] MEDS: ATORVASTATIN 10 MG TAB PO SCH (21:48)
[2022-05-25] MEDS: TAMSULOSIN 0.4 MG SR CAP PO SCH (21:48)
[2022-05-26 08:49] VITALS: BP 143/64; TEMP 97.5
[2022-05-26] MEDS: LOSARTAN POTASSIUM 50 MG TABLET PO SCH (08:49)
[2022-05-26] MEDS: MEMANTINE HCL 10 MG TABLET PO SCH (08:49)
[2022-05-26] MEDS: LORATADINE 10 MG TAB PO SCH (08:49)
[2022-05-26] MEDS: ASPIRIN 81 MG CHEWABLE TABLET PO SCH (08:50)
[2022-05-26] MEDS: ENSURE ENLIVE 237 ML CAN PO SCH (08:50)
[2022-05-26] MEDS: CEFTRIAXONE 1,000 MG in NA CHLORIDE 0.9% 50 ML IVPB SCH (08:50)
[2022-05-26] MEDS: AMLODIPINE 5 MG TAB PO SCH (08:50)
[2022-05-26] MEDS: OXcarbazepine 150 MG TAB PO SCH (08:51)
[2022-05-26 10:29] VITALS: O2SAT 93
== END 2022-05-26 12:50 | disposition home health service (06) | DRG 872 ==
LOC: ER 06:52 → ERHOLD 11:48 → 4TH 16:09 → OBSVTOIN 05-21 18:40
PROVIDERS: ADMIT Internal Medicine; ATTEND Hospitalist
DX: A41.9 Sepsis, unspecified organism (principal); N30.00 Acute cystitis without hematuria; F03.91 Unspecified dementia, unspecified severity, with behavioral disturbance; I10 Essential (primary) hypertension; E78.5 Hyperlipidemia, unspecified; I51.7 Cardiomegaly; G40.909 Epilepsy, unspecified, not intractable, without status epilepticus; I69.320 Aphasia following cerebral infarction; I69.392 Facial weakness following cerebral infarction; N40.1 Benign prostatic hyperplasia with lower urinary tract symptoms; R33.8 Other retention of urine; Z79.82 Long term (current) use of aspirin; Z79.899 Other long term (current) drug therapy; Z20.822 Contact with and (suspected) exposure to COVID-19
CPT/HCPCS: 36415; 51702; 70450; 71045; 71260; 72125; 72170; 74177; 80048; 80076; 81003; 81015; 83605; 83735; 83880; 84484; 85025; 85610; 87040; 87086; 87088; 87811; 93005; 93306; 93970; 94640; 97110; 97161; 99285; G0378; J1630; J2270; J2405; J3010; J3360; J7040; Q9967

== ENCOUNTER 2022-05-30 05:43 | Inpatient (IN) | payer OTHER ==
--- OUTSIDE RECORDS SUMMARY | 2022-05-30 05:46 | XMS REPORT | Continuity of Care Document ---
:1940 Author Organization [facility] t Address [address] [place] [address] Care Team Providers Name Role Phone Brayden [...] Facility Department ID 2022-04-21 Outpatient Brayden Robles [facility] [id number] Common 13:20:02 [facility] 2022-04-21 2022-04-21 ambulatory [facility] [id number] Common 00:00:00 00:00:00 [facility] Results This patient has no known results.
[2022-05-30 06:49] LABS: Urine Blood 3+ (Negative); Urine Glucose Negative (Negative); Urine Protein 2+ (Negative); Urine Specific Gravity 1.025 (1.005-1.030)
[2022-05-30 06:50] LABS: Absolute Lymphocytes (CBC) 1.3 K/uL (0.7-4.9); Hematocrit 41.2 % (39.6-49.0); Lymphocytes % 8.1 % (15.3-44.8); MCV 95.9 fL (80-100); MPV 7.6 fL (7.6-11.3)
[2022-05-30 07:01] LABS: Urine Bacteria <20 /HPF (<20); Urine Mucus 3+ /HPF (None Seen); Urine RBC >50 /HPF (None Seen)
[2022-05-30 08:33] LABS: Albumin 2.3 g/dL (3.4-5.0); Bilirubin Total 0.6 mg/dL (0.2-1.0); Protein, Total 6.6 g/dL (6.4-8.2)
[2022-05-30 08:34] LABS: Potassium 4.3 mmol/L (3.5-5.1)
--- NOTE | 2022-05-30 09:37 | RAD REPORT ---
EXAM DESCRIPTION: CT - Abdomen Pelvis W Contrast - 05/30/2022 8:38 am CLINICAL HISTORY: abd pain/pelvic pain COMPARISON: <Comparisons> TECHNIQUE: Biphasic, helical CT imaging of the abdomen and pelvis was performed following 100 ml non -ionic IV contrast. No oral contrast administered. All CT scans are performed using dose optimization technique as appropriate and may include automated exposure control or mA/KV adjustment according to patient size. FINDINGS: Bilateral posterior gutter opacification is more likely atelectasis than infiltrate. Heart size is prominent. No pericardial thickening or effusion. The liver, spleen, and pancreas show no suspicious findings. Gallbladder and biliary tree are also wi thout suspicious finding. Symmetric renal function is seen with no hydronephrosis or suspicious renal mass. No pyelonephritis o r acute parenchymal process. Small renal cysts present on the left. No adrenal abnormalities. Prostat e gland is not abnormally enlarged. Lopez catheter in place with the balloon inflated within the pros tatic urethra. No fluid in the urinary bladder. There is an ill-defined 7 centimeter lobulated mass t hat is believed to be an irregular urinary bladder. This is isodense to abutting small bowel loops. B ladder masses of concern. Sonographic evaluation could be performed after retrograde filling of the b ladder. Small hiatal hernia is present. No gross gastric abnormality. Assessment is limited due to the absenc e of intraluminal content. A duodenal diverticulum is present. Small bowel loops are not dilated. The re is a loop of distal colon herniated in the right inguinal canal. Bowel wall is not thickened or ed ematous. The herniated fat is not congested or edematous. A small fat only left inguinal hernia is al so present. No appendicitis findings. There is a large stool volume dilating the rectum to 7 cm. Left -sided colon anastomotic site shows no suspicious finding. Moderately large stool volume elsewhere in the colon. No free air, free fluid or inflammatory stranding. No hernia, mass or bulky lymphadenopathy. No suspicious bony findings. IMPRESSION: Lopez catheter is in place with the balloon inflated within the prostatic urethra. Colla psed irregular urinary bladder shows evidence for lobulated, thickened bladder diaz. Bladder maligna ncy is not excluded. Re-evaluation with sonography could be performed after retrograde filling of the bladder through the indwelling Lopez. Right inguinal hernia is present containing a loop of small bowel. The herniated bowel loop in the he rniated fat show no congestion or edema. Small fat only left inguinal hernia is present. Rectum is dilated to 7 cm by stool with moderately large stool volume elsewhere in the colon.
--- NOTE | 2022-05-30 09:43 | EDPHYS ---
Physician Documentation [facility] Name: John Matias Age: 81 yrs Sex: Male : 1940 Arrival Date: 05/30/2022 Time: 05:45 Bed 8 Private MD: ED Physician Jose Johnson HPI: 05/30 07:38 This 81 yrs old Male presents to ER via EMS with complaints of groin pain. sd2 07:38 81-year-old male presents via EMS with chief complaint of groin pain. He was recently sd2 discharged from the hospital with a Lopez catheter in place and complains of pain at the site of this area. His caregiver at bedside reports she is unsure why the Lopez catheter was put in place and when he was supposed to follow-up regarding it. He is currently on cefdinir for UTI. The patient has also had continued bilateral lower extremity pain which according to records was present at his recent hospitalization. He was able to work with physical therapy and ambulate with max assist and they did recommend [facility] placement but family did not want this. They are now open to inpatient rehab placement but they would not want the patient placed at a chcf. Patient does have dementia so history is otherwise limited. 07:50 Family reports has not taken any of the abx yet. . Onset: The symptoms/episode rn began/occurred at an unknown time. Severity of symptoms: At their worst the symptoms were moderate in the emergency department the symptoms have improved. The patient has experienced a previous episode. The patient has been recently been admitted at [facility]. Historical: - Allergies: 09:43 No Known Allergies; - Home Meds: 05:50 amlodipine 10 mg tab 1 tab once daily [Active]; tamsulosin 0.4 mg oral cap 1 cap once as6 daily [Active]; loratadine 10 mg Oral tab 1 tab once daily [Active]; losartan 100 mg Oral tab 1 tab once daily [Active]; oxcarbazepine 300 mg Oral tab 1 tab 2 times per day [Active]; pravastatin 40 mg Oral tab 1 tab once daily [Active]; donepezil 10 mg Oral tab 1 tab once daily [Active]; memantine 10 mg oral tab 1 tab 2 times per day [Active]; 08:24 cefdinir 300 mg bid [Active]; Aspirin Oral 81 mg daily [Active]; Nitrofurantoin ph Macrocrystal Oral 100 mg daily [Active]; - PMHx: 05:50 CVA; Hypertension; Seizures; as6 - Immunization history:: Adult Immunizations up to date. - Social history:: Smoking status: unknown. - Family history:: not pertinent. - Hospitalizations: : The patient was recently seen at [facility]. - History obtained from: caregiver. ROS: 07:38 Unable to obtain ROS due to baseline dementia. sd2 Exam: 07:38 Constitutional: This is a well developed, well nourished patient who is awake, alert, rn and in no acute distress. Head/Face: Normocephalic, atraumatic. Eyes: EOMI, normal conjunctiva bilaterally Chest/axilla: Normal chest wall appearance and motion. Nontender with no deformity. Cardiovascular: Regular rate and rhythm with a normal S1 and S2. No gallops, murmurs, or rubs. 2+ distal pulses. Respiratory: Lungs have equal breath sounds bilaterally, clear to auscultation and percussion. No rales, rhonchi or wheezes noted. No increased work of breathing, no retractions or nasal flaring. Abdomen/GI: Soft, non-tender, with normal bowel sounds. No guarding or rebound. No evidence of tenderness throughout. Male : Normal genitalia with no discharge or lesions. No scrotal swelling or edema. Lopez catheter in place draining dark yellow urine. Skin: Warm, dry with normal turgor. Normal color with no rashes, no lesions, and no evidence of cellulitis. MS/ Extremity: Pulses equal, no cyanosis. Neurovascular intact. Full, normal range of motion. Vital Signs: 05:45 BP 149 / 69; Pulse 69; Resp 18 S; Temp 98.9(O); Pulse Ox 97% on R/A; Weight 72.57 kg; as6 06:28 BP 149 / 70; Pulse 74; Resp 16 S; Pulse Ox 97% on R/A; as6 07:51 BP 149 / 72; Pulse 78; Resp 16; Temp 98.7; Pulse Ox 98% ; db 11:05 BP 143 / 81; Pulse 66; Resp 18; Pulse Ox 98% on R/A; ph 12:15 BP 159 / 80; Pulse 59; Resp 16; Pulse Ox 99% ; db 14:56 BP 159 / 80; Pulse 70; Resp 16; Pulse Ox 99% on R/A; ll1 MDM: 05:46 Patient medically screened. sd2 07:40 Differential Diagnosis Lopez catheter malfunction, failure to thrive, debility, sd2 dehydration, electrolyte abnormality, UTI among others. Data reviewed: vital signs, nurses notes. Transition of care: After a detail discussion of the patient's case, care is transferred to Jose Johnson MD. 09:42 Counseling: I had a detailed discussion with the patient and/or guardian regarding: the rn historical points, exam findings, and any diagnostic results supporting the discharge/admit diagnosis, lab results, radiology results, the need for further work-up and treatment in the hospital. Response to treatment: the patient's symptoms have mildly improved after treatment, and as a result, I will admit patient. Admission orders: after a detailed discussion of the patient's condition and case, the admit orders are written by me. 05/30 06:29 Order name: CBC with Diff; Complete Time: 07:22 sd2 05/30 06:29 Order name: CMP; Complete Time: 08:35 sd2 05/30 06:29 Order name: Urine Microscopic Only; Complete Time: 07:22 sd2 05/30 06:29 Order name: Urine Culture sd2 05/30 06:29 Order name: CK; Complete Time: 08:35 sd05/30 06:50 Order name: Urine Dipstick-Ancillary; Complete Time: 07:22 EDMS 05/30 06:29 Order name: Urine Dipstick-Ancillary (obtain specimen); Complete Time: 06:48 sd2 05/30 07:42 Order name: CT Abd/Pelvis - IV Contrast Only; Complete Time: 09:41 rn 05/30 09:43 Order name: SARS RAPID ph Administered Medications: 10:59 Drug: Rocephin (cefTRIAXone) 1 grams Route: IV; Rate: calculated rate; Site: left ph antecubital; 11:30 Follow up: Response: No adverse reaction; IV Status: Completed infusion; IV Intake: 50mldb 10:59 Drug: NS 0.9% 500 ml Route: IV; Rate: bolus; Site: left antecubital; ph 12:00 Follow up: Response: No adverse reaction; IV Status: Completed infusion; IV Intake: db 500ml Disposition Summary: 05/30/22 09:43 Hospitalization Ordered Hospitalization Status: Inpatient Admission rn Provider: Sameer Cordova rn Location: Telemetry/MedSurg (Inpatient) rn Condition: Stable rn Problem: new rn Symptoms: have improved rn Bed/Room Type: Standard rn Room Assignment: 422(05/30/22 14:21) dw Diagnosis - UTI/ Urinary tract infection, site not specified rn - Lopez catheter complication rn - Fecal impaction rn Forms: - Medication Reconciliation Form rn - SBAR form rn Signatures: Dispatcher [employer] EDJosie Alejandra RN RN Jose Damon MD MD rn Hall, Patricia, RN RN ph Slawson, Ashby, RN RN as6 Dunlop, Stephanie, MD MD sd2 Benton, Danielle RN db Corrections: (The following items were deleted from the chart) 07:52 07:38 Constitutional: This is a well developed, well nourished patient who is awake, rn alert, and in no acute distress. Head/Face: Normocephalic, atraumatic. Eyes: EOMI, normal conjunctiva bilaterally Chest/axilla: Normal chest wall appearance and motion. Nontender with no deformity. Cardiovascular: Regular rate and rhythm with a normal S1 and S2. No gallops, murmurs, or rubs. 2+ distal pulses. Respiratory: Lungs have equal breath sounds bilaterally, clear to auscultation and percussion. No rales, rhonchi or wheezes noted. No increased work of breathing, no retractions or nasal flaring. Abdomen/GI: Soft, non-tender, with normal bowel sounds. No guarding or rebound. No evidence of tenderness throughout. Male : Normal genitalia with no discharge or lesions. No scrotal swelling or edema. Lopez catheter in place draining dark yellow urine. Skin: Warm, dry with normal turgor. Normal color with no rashes, no lesions, and no evidence of cellulitis. MS/ Extremity: Pulses equal, no cyanosis. Neurovascular intact. Full, normal range of motion. Ambulatory without difficulty. 2 14:21 09:43 rn martha
--- NOTE | 2022-05-30 09:43 | ER ---
Nurse's Notes [facility] Name: John Matias Age: 81 yrs Sex: Male : 1940 Arrival Date: 05/30/2022 Time: 05:45 Bed 8 Private MD: Diagnosis: UTI/ Urinary tract infection, site not specified;Mcallister catheter complication;Fecal impaction Presentation: 05/30 05:45 Chief complaint: EMS states: called out for groin pain. pt recently had a Mcallister as6 catheter put in place. pt non verbal d/t previous CVA, pt able to answer yes and no questions, pt c/o groin pain. Coronavirus screen: At this time, the client does not indicate any symptoms associated with coronavirus-19. Ebola Screen: No symptoms or risks identified at this time. Initial Sepsis Screen: Does the patient meet any 2 criteria? No. Patient's initial sepsis screen is negative. Does the patient have a suspected source of infection? No. Patient's initial sepsis screen is negative. Risk Assessment: Do you want to hurt yourself or someone else? Patient reports no desire to harm self or others. Onset of symptoms is unknown. 05:45 Method Of Arrival: EMS: [facility] as6 05:45 Acuity: AGATHA 3 as6 Triage Assessment: 12:32 General: Appears in no apparent distress. comfortable, Behavior is calm, cooperative. db Historical: - Allergies: 09:43 No Known Allergies; ph - Home Meds: 05:50 amlodipine 10 mg tab 1 tab once daily [Active]; tamsulosin 0.4 mg oral cap 1 cap once as6 daily [Active]; loratadine 10 mg Oral tab 1 tab once daily [Active]; losartan 100 mg Oral tab 1 tab once daily [Active]; oxcarbazepine 300 mg Oral tab 1 tab 2 times per day [Active]; pravastatin 40 mg Oral tab 1 tab once daily [Active]; donepezil 10 mg Oral tab 1 tab once daily [Active]; memantine 10 mg oral tab 1 tab 2 times per day [Active]; 08:24 cefdinir 300 mg bid [Active]; Aspirin Oral 81 mg daily [Active]; Nitrofurantoin ph Macrocrystal Oral 100 mg daily [Active]; - PMHx: 05:50 CVA; Hypertension; Seizures; as6 - Immunization history:: Adult Immunizations up to date. - Social history:: Smoking status: unknown. - Family history:: not pertinent. - Hospitalizations: : The patient was recently seen at [facility]. - History obtained from: caregiver. Screenin:29 Abuse screen: Denies threats or abuse. Denies injuries from another. Nutritional as6 screening: No deficits noted. Tuberculosis screening: No symptoms or risk factors identified. Fall Risk None identified. Assessment: 06:28 General: Appears uncomfortable, Behavior is calm, cooperative. Pain: Complains of pain as6 in groin. Neuro: Level of Consciousness is awake, alert, obeys commands, Speech with expressive aphasia noted. Respiratory: Respiratory effort is even, unlabored. : Mcallister in place to gravity drainage Urine is cloudy. 06:54 Reassessment: notified Surendra CABRAL pt labs need to be recollected. bb 07:27 Reassessment: Patient appears in no apparent distress at this time. Patient and/or ph family updated on plan of care and expected duration. Pain level reassessed. Patient is alert, oriented x 3, equal unlabored respirations, skin warm/dry/pink. 07:52 Reassessment: Patient appears in no apparent distress at this time. Patient and/or db family updated on plan of care and expected duration. Pain level reassessed. Patient is alert, oriented x 3, equal unlabored respirations, skin warm/dry/pink. Patient denies pain at this time. General: Appears in no apparent distress. comfortable, Behavior is calm, cooperative, appropriate for age. Pain: Denies pain. Neuro: No deficits noted. Cardiovascular: No deficits noted. Respiratory: No deficits noted. GI: No deficits noted. : No deficits noted. No signs and/or symptoms were reported regarding the genitourinary system. Derm: No deficits noted. Musculoskeletal: No deficits noted. 10:30 Reassessment: Patient appears in no apparent distress at this time. Patient and/or ph family updated on plan of care and expected duration. Pain level reassessed. Pt awake and alert, Dr Cordova at bedside requests that new Mcallister catheter be placed, 16 Fr mcallister inserted, IV to RAC noted to be infiltrated, new IV initiated to LAC. Vital Signs: 05:45 BP 149 / 69; Pulse 69; Resp 18 S; Temp 98.9(O); Pulse Ox 97% on R/A; Weight 72.57 kg; as6 06:28 BP 149 / 70; Pulse 74; Resp 16 S; Pulse Ox 97% on R/A; as6 07:51 BP 149 / 72; Pulse 78; Resp 16; Temp 98.7; Pulse Ox 98% ; db 11:05 BP 143 / 81; Pulse 66; Resp 18; Pulse Ox 98% on R/A; ph 12:15 BP 159 / 80; Pulse 59; Resp 16; Pulse Ox 99% ; db 14:56 BP 159 / 80; Pulse 70; Resp 16; Pulse Ox 99% on R/A; ll1 ED Course: 05:45 Patient arrived in ED. as6 05:46 Maribell Helm MD is Attending Physician. sd2 05:50 Triage completed. as6 05:54 Arm band placed on. as6 06:28 Surendra Oconnell, MISHA is Primary Nurse. as6 06:29 Bed in low position. Call light in reach. Side rails up X2. as6 06:40 Inserted saline lock: 22 gauge in right antecubital area, using aseptic technique. aa9 Blood collected. 06:45 CK Sent. aa9 06:45 CMP Sent. aa9 06:45 CBC with Diff Sent. aa9 06:48 Urine Culture Sent. aa9 06:48 Urine Microscopic Only Sent. aa9 07:42 Attending Physician role handed off by Maribell Helm MD rn 07:42 Jose Johnson MD is Attending Physician. rn 07:55 Bed in low position. Call light in reach. Side rails up X 1. db 07:56 No apparent distress. Awaiting re-evaluation by ER provider. db 08:21 Inserted saline lock: 22 gauge in right antecubital area, using aseptic technique. ph 08:27 No provider procedures requiring assistance completed. db 08:40 CT Abd/Pelvis - IV Contrast Only In Process Unspecified. EDMS 09:42 Sameer Cordova is Hospitalizing Provider. rn 10:30 Mcallister cath inserted, using sterile technique, 16 Fr., by ar, balloon inflated, to ph gravity drainage, returned bloody urine. Patient tolerated well. Patient admitted, IV remains in place. 10:35 Inserted saline lock: 20 gauge in left antecubital area, using aseptic technique. ph Administered Medications: 10:59 Drug: Rocephin (cefTRIAXone) 1 grams Route: IV; Rate: calculated rate; Site: left ph antecubital; 11:30 Follow up: Response: No adverse reaction; IV Status: Completed infusion; IV Intake: 50mldb 10:59 Drug: NS 0.9% 500 ml Route: IV; Rate: bolus; Site: left antecubital; ph 12:00 Follow up: Response: No adverse reaction; IV Status: Completed infusion; IV Intake: db 500ml Medication: 06:29 VIS not applicable for this client. as6 Intake: 11:30 IV: 50ml; Total: 50ml. db 12:00 IV: 500ml; Total: 550ml. db Outcome: 09:43 Decision to Hospitalize by Provider. rn 14:57 Admitted to Med/surg accompanied by tech, via stretcher, room 422, with chart, Report ll1 called to Sudha Dutta RN 14:57 Condition: stable 14:57 Instructed on the need for admit. 15:40 Patient left the ED. ss Signatures: Dispatcher [employer] EDMS Mervat Donis RN RN Jose Anne MD MD rn Smirch, Shelby, RN RN ss Marielena Kim RN RN ph Lewis, Lynsay, RN RN ll1 Surendra Oconnell RN RN as6 Maribell Helm MD MD sd2 Bibiana Wood RN RN aa9 Skye Curry RN RN db
[2022-05-30] MEDS ORDERED: CEFTRIAXONE 1000 MG/VIAL ONE (10:11)
[2022-05-30] MEDS ORDERED: NA CHLORIDE 0.9% 50 ML ONE (10:11)
[2022-05-30] MEDS ORDERED: NA CHLORIDE 0.9% 500 ML ONE (10:13)
[2022-05-30] MEDS ORDERED: LIDOCAINE VISCOUS 2% SOLN 15 ML UDC ONE (10:37)
[2022-05-30 10:40] LABS: SARS-CoV-2 Antigen Rapid Res Negative (Negative)
--- NOTE | 2022-05-30 11:15 | P.HP ---
Certification for Inpatient Patient admitted to: Inpatient With expected LOS: >2 Midnights Practitioner: I am a practitioner with admitting privileges, knowledge of patient current condition, hospital course, and medical plan of care. Services: Services provided to patient in accordance with Admission requirements found in Title 42 Section 412.3 of the Code of Federal Regulations Patient History Date of Service: 05/30/22 Reason for admission: Pain in the groin History of Present Illness: 81-year-old gentleman with a history of advanced dementia, BPH with indwelling Lopez catheter was brought to the emergency department due to complaint of pain in the Lopez. Lopez catheter was recently inserted. Patient has a history of CVAs and nonverbal. CT abdomen and pelvis done in emergency department demonstrated Lopez catheter with balloon inflated in the prostatic urethra. CT scan also reported constipation. His UA suggest UTI. Lopez catheter was replaced in the ED. Patient given a shot of IV antibiotics. He is admitted for further management. Allergies No Known Allergies Allergy (Verified 08/24/14 23:15) Home Medications: Oxcarbazepine 1 tab PO BID 09/13/15 Pravastatin Sodium 1 tab PO BEDTIME 09/13/15 Amlodipine Besylate 2 tab PO DAILY 04/19/16 Loratadine 1 tab PO DAILY 04/19/16 Donepezil HCl 1 tab PO DAILY 05/20/22 Losartan Potassium [Cozaar] 1 tab PO DAILY 05/20/22 Memantine HCl 10 mg PO BID 05/20/22 Nitrofurantoin Monohyd/M-Cryst [Nitrofurantoin Mcdonough-Mcr 100 mg] 1 cap PO BID 05/20/22 Tamsulosin [Flomax*] 1 tab PO BEDTIME 05/20/22 Aspirin Chewable [Aspirin Chewable*] 81 mg PO DAILY #30 tab.chew 05/25/22 Ensure Enlive 237 ml PO BID #60 can 05/25/22 Cefdinir [Cefdinir*] 300 mg PO BID #20 cap 05/26/22 - Past Medical/Surgical History Diabetic: No -: HTN -: CVA, residual facial droop -: DIVERTICULITIS -: Expressive dysphasia -: Possible history of Seizures -: BPH -: COLON RESECTION - Social History Alcohol use: No CD- Drugs: No Caffeine use: Yes Review of Systems is unable to be obtained Physical Examination - Physical Exam General: Confused, Other (Awake, nonverbal) HEENT: Mucous membr. moist/pink, EOMI, Sclerae nonicteric Neck: Supple, JVD not distended Respiratory: Clear to auscultation bilaterally, Normal air movement Cardiovascular: No edema, Regular rate/rhythm, Normal S1 S2 Gastrointestinal: Normal bowel sounds, Soft and benign, Non-distended, No tenderness Musculoskeletal: No swelling Integumentary: No tenderness/swelling, No erythema, No cyanosis Neurological: Other (No focal motor deficit. Patient moves all extremities.), Dementia Lymphatics: No axilla or inguinal lymphadenopathy - Studies Laboratory Data (last 24 hrs) 05/30/22 08:04: Sodium 138, Potassium 4.3, BUN 21 H, Creatinine 0.86, Glucose 111 H, Total Bilirubin 0.6, AST 25, ALT 39, Alkaline Phosphatase 75 05/30/22 06:40: WBC 16.00 H, Hgb 13.8, Hct 41.2, Plt Count 444 H Assessment and Plan - Problems (Diagnosis) (1) UTI (urinary tract infection) Current Visit: No Status: Acute Qualifiers: Urinary tract infection type: acute cystitis Hematuria presence: without hematuria Qualified Code(s): N30.00 - Acute cystitis without hematuria (2) Urinary retention Current Visit: No Status: Acute (3) Functional constipation Current Visit: Yes Status: Acute (4) Dementia Current Visit: Yes Status: Acute (5) History of CVA (cerebrovascular accident) Current Visit: No Status: Acute - Plan Admit patient to the medical floor. Lopez catheter changed in the ED. IV antibiotic-Levaquin and ampicillin based on previous urine culture results. Obtain blood culture Follow urine culture. Mineral oil enema, Colace and MiraLAX for constipation. Continue other home medications including antiepileptics. Fall and seizure precautions. Diet as tolerated. - Advance Directives Does patient have a Living Will: No Does patient have a Durable POA for Healthcare: No
[2022-05-30] MEDS ORDERED: MINERAL OIL ENEMA 135 ML BTL PR SCH (15:25)
[2022-05-30] MEDS ORDERED: ONDANSETRON 4 MG/2 ML VIAL IV PRN (15:25)
[2022-05-30 15:58] VITALS: BMI 22.6
[2022-05-30] MEDS: NA CHLORIDE 0.9% 1,000 ML IV SCH (16:02)
[2022-05-30] MEDS: Levofloxacin 750mg IV 750 MG/150 ML BAG IV SCH (16:13)
[2022-05-30] MEDS: AMPICILLIN SODIUM 1 GM in NA CHLORIDE 0.9% 100 ML IVPB SCH ×2 (17:37→23:10)
[2022-05-30] MEDS: DOCUSATE NA 100 MG CAP PO SCH (20:20)
[2022-05-30] MEDS: MINERAL OIL ENEMA 135 ML BTL PR SCH (22:05)
[2022-05-31] MEDS: AMPICILLIN SODIUM 1 GM in NA CHLORIDE 0.9% 100 ML IVPB SCH ×4 (04:36→23:27)
[2022-05-31 05:48] LABS: Absolute Lymphocytes (CBC) 1.3 K/uL (0.7-4.9); Hematocrit 36.4 % (39.6-49.0); Lymphocytes % 11.4 % (15.3-44.8); MCV 96.2 fL (80-100); MPV 7.5 fL (7.6-11.3); RBC Red Blood Cell Count 3.78 M/uL (4.33-5.43)
[2022-05-31 06:10] LABS: Magnesium 2.1 mg/dL (1.8-2.4); Phosphorus 2.3 mg/dL (2.5-4.9)
[2022-05-31] MEDS: NA CHLORIDE 0.9% 1,000 ML IV SCH ×2 (06:29→15:46)
[2022-05-31] MEDS: POTASS/SODIUM PHOSPHATE 1 PKT POWD.PACK PO SCH ×3 (06:44→10:30)
[2022-05-31] MEDS: DOCUSATE NA 100 MG CAP PO SCH ×2 (09:50→20:57)
[2022-05-31] MEDS: ENOXAPARIN 40 MG/0.4 ML SQ SCH (09:50)
[2022-05-31] MEDS: POLYETHYL GLY 3350 17 GM/DOSE PO SCH (09:50)
[2022-05-31] MEDS: Levofloxacin 750mg IV 750 MG/150 ML BAG IV SCH (15:45)
--- NOTE | 2022-05-31 16:53 | P.PN ---
Subjective Date of Service: 05/31/22 Chief Complaint: Pain in the groin Patient has dementia and not able to give any subjective complaint. No recorded fever. Patient has been tolerating diet. Patient tried to pull out his Lopez catheter last night. Physical Examination - Vital Signs Temperature: 97.9 F Blood Pressure: 157/71 Pulse: 64 Respirations: 16 Pulse Ox (%): 96 Assessment And Plan - Current Problems (Diagnosis) (1) UTI (urinary tract infection) Current Visit: No Status: Acute Qualifiers: Urinary tract infection type: acute cystitis Hematuria presence: without hematuria Qualified Code(s): N30.00 - Acute cystitis without hematuria (2) Urinary retention Current Visit: No Status: Acute (3) Functional constipation Current Visit: Yes Status: Acute (4) Dementia Current Visit: Yes Status: Acute (5) History of CVA (cerebrovascular accident) Current Visit: No Status: Acute - Plan Physical Exam General: Confused, nonverbal HEENT: Mucous membr. moist/pink. Neck: Supple. Respiratory: Clear to auscultation bilaterally, Normal air movement Cardiovascular: No edema, Regular rate/rhythm, Normal S1 S2 Gastrointestinal: Normal bowel sounds, Soft and benign, Non-distended, No tenderness Musculoskeletal: No swelling Neurological: No focal motor deficit. Patient moves all extremities. Dementia Plan: Urine culture is pending Continue IV antibiotic-Levaquin and ampicillin based on previous urine culture results. Blood cultures: No growth to date. Follow urine culture Patient given Fleet enema last night. Continue Colace and MiraLAX for constipation. Continue other home medications including antiepileptics. Fall and seizure precautions. Diet as tolerated.
[2022-05-31] MEDS ORDERED: NA CHLORIDE 0.9% 100 ML ONE (17:16)
[2022-05-31] MEDS: MINERAL OIL ENEMA 135 ML BTL PR SCH (21:00)
--- NOTE | 2022-05-31 22:49 | P.PN ---
Date of Service: 06/01/22 Subjective: agitated / confused overnight patient more pleasant this morning, aphasic ROS: 10 point ROS difficult to be obtained secondary to expressive aphasia Physical Exam: Gen: NAD HEENT: normal conjunctiva, sclera anicteric CV: regular rate & rhythm, no edema Pulm: non-labored respirations, clear bilaterally Abd: soft, non-tender, non-distended Neuro: +Expressive aphasia, moves all extremities vitals reviewed Problem List UTI Functional constipation Dementia h/o CVA with expressive aphasia and residual facial droop deconditioning with generalized weakness Seizure disorder HTN BPH urinary retention s/p outpatient cystoscopy ~1 month ago Urine culture pending Continue IV antibiotic-Levaquin and ampicillin based on previous urine culture results. Blood cultures: No growth to date. Patient given Fleet enema 2 nights ago Continue Colace and MiraLAX for constipation. Continue other home medications including antiepileptics. Fall and seizure precautions. Diet as tolerated. haldol given with minimal effect, try geodon resume home dementia medications VTE: lovenox Code: full Dispo: home, with home health ~2 days Time Spent Managing Pts Care (In Minutes): 35
[2022-06-01] MEDS ORDERED: HALOPERIDOL LACT 5 MG/ML INJ IV ONE (00:54)
[2022-06-01 03:36] LABS: Absolute Lymphocytes (CBC) 1.4 K/uL (0.7-4.9); MCV 94.8 fL (80-100); MPV 7.9 fL (7.6-11.3)
[2022-06-01 03:51] LABS: C-Reactive Protein 77.9 mg/L (<3.00); Potassium 3.7 mmol/L (3.5-5.1)
[2022-06-01] MEDS: AMPICILLIN SODIUM 1 GM in NA CHLORIDE 0.9% 100 ML IVPB SCH ×4 (05:10→23:36)
[2022-06-01 06:50] LABS: Phosphorus 2.5 mg/dL (2.5-4.9)
[2022-06-01] MEDS: ENOXAPARIN 40 MG/0.4 ML SQ SCH (08:18)
[2022-06-01] MEDS: POLYETHYL GLY 3350 17 GM/DOSE PO SCH (08:18)
[2022-06-01] MEDS: DOCUSATE NA 100 MG CAP PO SCH ×2 (08:19→21:25)
[2022-06-01] MEDS: NA CHLORIDE 0.9% 1,000 ML IV SCH ×2 (08:20→20:45)
[2022-06-01] MEDS ORDERED: WATER FOR INJ,STERILE 10 ML IM PRN (08:41)
[2022-06-01] MEDS ORDERED: ZIPRASIDONE MESYLA 20 MG/VIAL IM PRN ×2 (08:41→17:02)
[2022-06-01] MEDS ORDERED: POTASSIUM CL SA 10 MEQ TAB PO ONE (09:00)
[2022-06-01 09:22] VITALS: O2SAT 97
[2022-06-01] MEDS: MEMANTINE HCL 10 MG TABLET PO SCH ×2 (11:08→21:00)
[2022-06-01] MEDS: OXcarbazepine 150 MG TAB PO SCH ×2 (11:19→21:24)
[2022-06-01] MEDS: Levofloxacin 750mg IV 750 MG/150 ML BAG IV SCH (16:24)
[2022-06-01] MEDS: MINERAL OIL ENEMA 135 ML BTL PR SCH (21:00)
[2022-06-01] MEDS: DONEPEZIL HCL 5 MG TAB PO SCH (21:25)
--- NOTE | 2022-06-01 22:11 | RAD REPORT ---
EXAM DESCRIPTION: RAD - Pelvis - 06/01/2022 9:41 pm CLINICAL HISTORY: Pelvic pain status post injury FINDINGS: No fracture or dislocation is seen. Osteoporosis If the patient continues to have symptoms to suggest an occult fracture then MRI would be recommended
--- NOTE | 2022-06-02 02:24 | P.PN ---
Date of Service: 06/01/22 Was notified by nursing staff that patient was found on ground of his room, he had an unwitnessed fall. He was assisted back to the bed by nursing staff. Patient with history of dementia, previous CVA confused at baseline also with expressive aphasia, difficult to assess if patient has any reported injuries or pain. He had no obvious external injuries, he had some mild redness to his right hip area. It is unclear if patient hit his head although there is no bruising, lacerations or abrasions. CT head/C-spine was ordered as well as a pelvic x-ray. Pelvic x-ray was negative CT of the head/C-spine currently pending interpretation. Patient appears at his baseline mental status. Bed check in place. Fall precautions in place.
[2022-06-02 03:46] LABS: Hematocrit 36.7 % (39.6-49.0); MCV 96.2 fL (80-100); RBC Red Blood Cell Count 3.81 M/uL (4.33-5.43)
[2022-06-02 04:06] LABS: Potassium 3.8 mmol/L (3.5-5.1)
[2022-06-02] MEDS: AMPICILLIN SODIUM 1 GM in NA CHLORIDE 0.9% 100 ML IVPB SCH ×2 (05:00→10:15)
[2022-06-02] MEDS: ENOXAPARIN 40 MG/0.4 ML SQ SCH (08:15)
[2022-06-02] MEDS: DOCUSATE NA 100 MG CAP PO SCH ×2 (08:16→20:37)
[2022-06-02] MEDS: POLYETHYL GLY 3350 17 GM/DOSE PO SCH (08:16)
[2022-06-02] MEDS: MEMANTINE HCL 10 MG TABLET PO SCH ×2 (08:16→20:37)
[2022-06-02] MEDS: OXcarbazepine 150 MG TAB PO SCH ×2 (08:17→20:36)
[2022-06-02] MEDS ORDERED: POTASSIUM 25 MEQ EFFERV TAB PO ONE (09:00)
--- NOTE | 2022-06-02 12:47 | RAD REPORT ---
EXAM DESCRIPTION: Head C Spine Mpr Wo Con 06/02/2022 12:29 AM CDT CLINICAL HISTORY: 81 years, Male, fall COMPARISON: 05/20/2022. FINDINGS: Multiple transaxial tomograms of the brain were obtained from the base of the skull to the vertex without contrast. 2-D multiplanar reformats and the coronal and sagittal plane were performed and reviewed. This exam was performed according to our departmental dose-optimization protocol, which includes auto mated exposure control, adjustment of the mA and/or kV according to patient size and/or use of iterat yahir reconstruction technique. Brain parenchyma demonstrate mild prominence of the sulci and gyri are corresponding to mild cerebral and cerebellar atrophy. Again there is porencephalic changes/encephalomalacia involving the left cer ebral hemisphere corresponding to a subpleural infarction of the left MCA. There is no midline shift and/or mass effect. There is no evidence for acute intracranial hemorrhage. Lateral ventricles and cisterns displace normal appearance. No intra or extra axial fluid collections were seen. The geetha rium is intact with no evidence for fracture. The visualized portions of the paranasal sinuses and or bits demonstrate to be clear. IMPRESSION: No acute intracranial hemorrhage identified. 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 Mild brain atrophy. Electronically signed by: Renzo Hastings MD 06/02/2022 12:32 AM CDT Due to temporary technical issues with the PACS/Fluency reporting system, reports are being signed by the in house radiologists without review as a courtesy to insure prompt reporting. The interpreting radiologist is fully responsible for the content of the report.
[2022-06-02] MEDS: FLUCONAZOLE 100 MG TAB PO SCH (13:15)
[2022-06-02] MEDS: Levofloxacin 750mg IV 750 MG/150 ML BAG IV SCH (15:31)
--- NOTE | 2022-06-02 16:46 | CON ---
History Of Present Illness: This is an 81-year-old male, I was consulted for recurrent urinary tract infections. Patient has an indwelling Lopez catheter since last admission. Patient is not a good h istorian, but is able to answer simple questions. Denies any chest pain, abdominal pain, back pain, or fevers. Patient is also confused and providers in the room at the time of history and physical wh o claims that patient has been pulling his catheters. He has advanced dementia, benign prostatic hyp ertrophy, and history of stroke making him nonverbal. CT abdomen and pelvis done in the emergency ro om, which showed patient has a Lopez catheter in place, collapsed irregular urinary bladder shows caesar dence of loculation, thickened bladder diaz. Bladder malignancy is not excluded. Right inguinal he rnia is present containing a loop of small bowel, herniated bowel loop in the herniated fat shows no congestion or edema. Rectum is dilated with 7 cm of stool with [id number] stool volume in col on. Past Medical History: Dementia, recurrent urinary tract infection, stroke, expressive dysphasia, adriana ign prostatic hypertrophy, colon resection, history of seizures. Social History: Nonsmoker, nondrinker. Family History: Noncontributory. Medications: Ampicillin 1 g every 6 hours, Levaquin 750 mg once a day. Allergies: NO KNOWN DRUG ALLERGIES. Review of Systems: A 10-point review was performed. Physical Examination: General: This is an 81-year-old male, lying in bed, not in any acute cardiopulmonary distress. Vital Signs: Temperature 98, pulse 63, respirations 16, blood pressure 143/63. HEENT: Unremarkable. Neck: Supple. Lungs: Basal crackles. Heart S1, S2. Regular. Abdomen: Soft, nontender. Bowel sounds present. Extremities: No edema. Muscle wasting noted. Laboratory Data: Shows WBC 13.5, hemoglobin 12.1, platelets 454. Chemistry shows sodium 141, potass ium 3.8, chloride 108, bicarb 26, BUN is 14, creatinine 0.9, glucose is 95. Albumin level is 2.3. Micro data: Blood cultures negative for 24 hour. Urine is growing yeast more than 100,000, most lik sandeep colonization. Assessment And Plan: Recurrent urinary tract infection in an 81-year-old male with severe dementia a nd confusion. Also, most likely reason for having urinary tract infection is indwelling Lopez cathet er and prostatic hypertrophy. Recommend to consider a suprapubic catheter in this patient to prevent future urinary tract infection, yeast in urine is most likely a contaminant. At this point, we will recommend to continue Levaquin for total of 7 days. Follow up with Urology. History of dementia, s troke, anemia of chronic disease, moderate protein-calorie malnourishment, myopathy. We will follow the patient as needed. Thank you Dr. Johnson for consult. NF/MODL Voice ID: [id number] Report ID: [id number]
--- NOTE | 2022-06-02 20:15 | P.PN ---
Date of Service: 06/02/22 Subjective: agitation improved fall overnight patient reports doing good today ROS: 10 point ROS difficult to be obtained secondary to expressive aphasia Physical Exam: Gen: NAD HEENT: normal conjunctiva, sclera anicteric CV: regular rate & rhythm, trace b/l lower extremity edema Pulm: non-labored respirations, clear bilaterally Abd: soft, non-tender, non-distended Neuro: +Expressive aphasia, moves all extremities mcallister in place vitals reviewed Problem List UTI Functional constipation Dementia h/o CVA with expressive aphasia and residual facial droop deconditioning with generalized weakness Seizure disorder HTN BPH urinary retention s/p outpatient cystoscopy ~1 month ago Urine culture: 4+ yeast continue levaquin, add diflucan Blood cultures: No growth to date. Patient given Fleet enema 3 nights ago Continue Colace and MiraLAX for constipation. Continue other home medications including antiepileptics. Fall and seizure precautions. Diet as tolerated. continue home dementia medications continue mcallister - placed last admission VTE: lovenox Code: full Dispo: home, with home health possible dc tomorrow Time Spent Managing Pts Care (In Minutes): 35
[2022-06-02] MEDS: DONEPEZIL HCL 5 MG TAB PO SCH (20:36)
[2022-06-02] MEDS: MINERAL OIL ENEMA 135 ML BTL PR SCH (21:00)
[2022-06-02] MEDS: ACETAMINOPHEN 500 MG TAB PO PRN (23:30)
[2022-06-03 03:51] LABS: MPV 7.7 fL (7.6-11.3); RBC Red Blood Cell Count 3.54 M/uL (4.33-5.43)
[2022-06-03] MEDS ORDERED: FLUCONAZOLE 100 MG TAB PO SCH (09:00)
[2022-06-03] MEDS: POLYETHYL GLY 3350 17 GM/DOSE PO SCH (09:22)
[2022-06-03] MEDS: DOCUSATE NA 100 MG CAP PO SCH ×2 (09:22→20:18)
[2022-06-03] MEDS: MEMANTINE HCL 10 MG TABLET PO SCH ×2 (09:23→20:18)
[2022-06-03] MEDS: FLUCONAZOLE 100 MG TAB PO SCH (09:24)
[2022-06-03] MEDS: ENOXAPARIN 40 MG/0.4 ML SQ SCH (09:24)
[2022-06-03] MEDS: OXcarbazepine 150 MG TAB PO SCH ×2 (09:24→20:17)
[2022-06-03] MEDS ORDERED: levoFLOXacin 750 MG TAB PO SCH (16:00)
--- NOTE | 2022-06-03 16:37 | P.PN ---
Date of Service: 06/03/22 Subjective: first night last night without any acute events patient more calm, less agitated family feel he is close to his usual self, but very weak responds "good" and "no", mostly seems to be appropriate ROS: 10 point ROS difficult to be obtained secondary to expressive aphasia Physical Exam: Gen: NAD, resting comfortably HEENT: normal conjunctiva, sclera anicteric CV: regular rate & rhythm, trace b/l lower extremity edema Pulm: non-labored respirations, clear bilaterally Abd: soft, non-tender, non-distended Neuro: +Expressive aphasia, moves all extremities mcallister in place vitals reviewed Problem List UTI acute metabolic encephalopathy vs delirium Functional constipation Dementia h/o CVA with expressive aphasia and residual facial droop deconditioning with generalized weakness Seizure disorder HTN BPH urinary retention s/p outpatient cystoscopy ~1 month ago UTI acute metabolic encephalopathy vs delirium Urine culture: 4+ yeast leukocytosis continued to increase up unti 06/02 added diflucan 12/31 leukocytosis improved today no bacteria in urine no longer needing haldol/geodon, more calm, not trying to get out of bed like before Blood cultures: No growth to date. constipation enema and laxatives have helped / resolved issue Continue other home medications including antiepileptics. Fall and seizure precautions. - patient fell 2 nights ago, CT negative Diet as tolerated. continue home dementia medications continue mcallister - placed last admission; f/u with Urology states patient has been having difficulty ambulating for months, mostly uses wheelchair at home; but he has been declining over last several months VTE: lovenox Code: full Dispo: home, with home health anticipate dc tomorrow updated at bedside Time Spent Managing Pts Care (In Minutes): 35
[2022-06-03] MEDS: DONEPEZIL HCL 5 MG TAB PO SCH (20:18)
[2022-06-03] MEDS: MINERAL OIL ENEMA 135 ML BTL PR SCH (21:00)
[2022-06-04] MEDS: ACETAMINOPHEN 500 MG TAB PO PRN (02:12)
[2022-06-04 05:54] LABS: Hematocrit 35.3 % (39.6-49.0); MCV 94.9 fL (80-100); RBC Red Blood Cell Count 3.72 M/uL (4.33-5.43)
[2022-06-04 06:13] LABS: Potassium 3.6 mmol/L (3.5-5.1)
[2022-06-04] MEDS ORDERED: LOSARTAN POTASSIUM 50 MG TABLET PO ONE ×2 (07:00)
[2022-06-04] MEDS ORDERED: POTASSIUM CL SA 10 MEQ TAB PO ONE (07:31)
[2022-06-04] MEDS: DOCUSATE NA 100 MG CAP PO SCH (08:24)
[2022-06-04] MEDS: MEMANTINE HCL 10 MG TABLET PO SCH (08:27)
[2022-06-04] MEDS: ENOXAPARIN 40 MG/0.4 ML SQ SCH (08:27)
[2022-06-04] MEDS: POLYETHYL GLY 3350 17 GM/DOSE PO SCH (08:27)
[2022-06-04] MEDS: FLUCONAZOLE 100 MG TAB PO SCH (08:27)
[2022-06-04] MEDS: OXcarbazepine 150 MG TAB PO SCH (08:28)
[2022-06-04 08:29] VITALS: BP 157/66
[2022-06-04] MEDS ORDERED: ASPIRIN 81 MG CHEWABLE TABLET PO SCH (09:00)
[2022-06-04] MEDS ORDERED: POTASSIUM 25 MEQ EFFERV TAB PO ONE (09:00)
[2022-06-04] MEDS ORDERED: AMLODIPINE 5 MG TAB PO SCH (09:00)
[2022-06-04 09:45] VITALS: TEMP 97.4
--- NOTE | 2022-06-04 16:04 | PN ---
Subjective: Patient lying in bed, provided by the bedside, not in any acute distress. Denies any ch est pain, abdominal pain, constipation, diarrhea. Objective: Vital Signs: Reviewed. Lungs: Basal crackles. Heart: S1, S2. Regular. Abdomen: Soft, nontender. Bowel sounds present. Extremities: No edema. Laboratory Data: Labs reviewed. Assessment And Plan: Recurrent urinary tract infection, dementia, leukocytosis resolved. Continue a ntibiotic, total course of 7 days. Cultures have been negative except yeast which I believed most li cassidy contaminant. The patient is currently getting Levaquin and Diflucan. We will follow the patien t as needed. NF/MODL Voice ID: [id number] Report ID: [id number]
--- NOTE | 2022-06-04 17:34 | P.DS ---
Admission Date: 05/30/22 Discharge Date: 06/04/22 Disposition: DC HOME/HOME HEALTH CARE Discharge Condition: GOOD Reason for Admission: constipation, UTI Consultations: ID - Dr. Tsai Brief History of Present Illness: 81-year-old gentleman with a history of advanced dementia, BPH with indwelling Mcallister catheter was brought to the emergency department due to complaint of pain in the Mcallister. Mcallister catheter was recently inserted. Patient has a history of CVAs and nonverbal. CT abdomen and pelvis done in emergency department demonstrated Mcallister catheter with balloon inflated in the prostatic urethra. CT scan also reported constipation. His UA suggest UTI. Mcallister catheter was replaced in the ED. Patient given a shot of IV antibiotics. He is admitted for further management. 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 There was concern for UTI. Urine culture did not grow any bacteria, but did note yeast. ID was consulted, recommended empiric 7 day treatment of levaquin and suspect yeast is more colonization than causing infection. Patient's symptoms and leukocytosis notably improved ~24hrs after initiation of diflucan, ~3 days on antibiotics. Given that he has a new mcallister place ~1 week ago and urologic issues. He will be treated for 2 weeks of diflucan, and has 2 more days of levaquin. Patient was deemed stable for discharge home with home health and PT. Patient's in agreement and has set up additional assistance at home. His physical capabilities have declined in the last several months and patient is a fall risk and should not be ambulating on his own. Follow up with PCP within 1 week. Patient presented to ED with mcallister, which was exchanged in the ED and he is discharged home with mcallister to follow up with Urology. Vital Signs/Physical Exam: Temp Pulse Resp BP Pulse Ox 97.4 F 57 17 157/66 H 98 06/04/22 08:00 06/04/22 08:24 06/04/22 08:00 06/04/22 08:24 06/04/22 08:00 Physical Exam: Gen: NAD, resting comfortably HEENT: normal conjunctiva, sclera anicteric CV: regular rate & rhythm, trace b/l lower extremity edema Pulm: non-labored respirations, clear bilaterally Abd: soft, non-tender, non-distended Neuro: +Expressive aphasia, moves all extremities mcallister in place Laboratory Data at Discharge: WBC 10.50 K/uL (4.3-10.9) 06/04/22 05:04 Hgb 12.0 g/dL (13.6-17.9) L 06/04/22 05:04 Hct 35.3 % (39.6-49.0) L 06/04/22 05:04 Plt Count 438 K/uL (152-406) H 06/04/22 05:04 Sodium 136 mmol/L (136-145) 06/04/22 05:04 Potassium 3.6 mmol/L (3.5-5.1) 06/04/22 05:04 BUN 15 mg/dL (7-18) 06/04/22 05:04 Creatinine 0.89 mg/dL (0.55-1.3) 06/04/22 05:04 Glucose 98 mg/dL (74-106) 06/04/22 05:04 Phosphorus 2.5 mg/dL (2.5-4.9) 06/01/22 02:57 Magnesium 2.0 mg/dL (1.8-2.4) 06/03/22 03:07 Total Bilirubin 0.6 mg/dL (0.2-1.0) 05/30/22 08:04 AST 25 U/L (15-37) 05/30/22 08:04 ALT 39 U/L (12-78) 05/30/22 08:04 Alkaline Phosphatase 75 U/L (45-117) 05/30/22 08:04 Home Medications: Oxcarbazepine 1 tab PO BID 09/13/15 Pravastatin Sodium 1 tab PO BEDTIME 09/13/15 Amlodipine Besylate 2 tab PO DAILY 04/19/16 Loratadine 1 tab PO DAILY 04/19/16 Donepezil HCl 1 tab PO DAILY 05/20/22 Losartan Potassium [Cozaar] 1 tab PO DAILY 05/20/22 Memantine HCl 10 mg PO BID 05/20/22 Tamsulosin [Flomax*] 1 tab PO BEDTIME 05/20/22 Aspirin Chewable [Aspirin Chewable*] 81 mg PO DAILY #30 tab.chew 05/25/22 Ensure Enlive 237 ml PO BID #60 can 05/25/22 Docusate Sodium 100 mg PO DAILY 30 Days #30 cap 06/04/22 Fluconazole 200 mg PO DAILY 10 Days #10 tab 06/04/22 levoFLOXacin [Levaquin*] 750 mg PO Q24H 2 Days #2 tab 06/04/22 New Medications: Docusate Sodium 100 mg PO DAILY 30 Days #30 cap Fluconazole 200 mg PO DAILY 10 Days #10 tab levoFLOXacin [Levaquin*] 750 mg PO Q24H 2 Days #2 tab Physician Discharge Instructions: Patient presented with confusion and weakness. There was concern for UTI. Urine culture did not grow any bacteria, but did note yeast. ID was consulted, recommended empiric 7 day treatment of levaquin and suspect yeast is more colonization than causing infection. Patient's symptoms and leukocytosis notably improved ~24hrs after initiation of diflucan, ~3 days on antibiotics. Given that he has a new mcallister place ~1 week ago and urologic issues. He will be treated for 2 weeks of diflucan, and has 2 more days of levaquin. Patient was deemed stable for discharge home with home health and PT. Patient's in agreement and has set up additional assistance at home. His physical capabilities have declined in the last several months and patient is a fall risk and should not be ambulating on his own. Follow up with PCP within 1 week. Time spent managing pt's care (in minutes): 45
[2022-06-04] MEDS ORDERED: TAMSULOSIN 0.4 MG SR CAP PO SCH (21:00)
[2022-06-05] MEDS ORDERED: LOSARTAN POTASSIUM 50 MG TABLET PO SCH (09:00)
== END 2022-06-04 11:02 | disposition home health service (06) | DRG 689 ==
LOC: ER 05:43 → ERHOLD 10:58 → 4TH 14:57
PROVIDERS: ADMIT Internal Medicine; ATTEND Hospitalist
DX: N39.0 Urinary tract infection, site not specified (principal); G93.41 Metabolic encephalopathy; E44.0 Moderate protein-calorie malnutrition; K59.04 Chronic idiopathic constipation; W19.XXXA Unspecified fall, initial encounter; Y92.230 Patient room in hospital as the place of occurrence of the external cause; F03.90 Unspecified dementia, unspecified severity, without behavioral disturbance, psychotic disturbance, mood disturbance, and anxiety; G40.909 Epilepsy, unspecified, not intractable, without status epilepticus; N40.1 Benign prostatic hyperplasia with lower urinary tract symptoms; R33.8 Other retention of urine; I10 Essential (primary) hypertension; R53.1 Weakness; R41.0 Disorientation, unspecified; K40.90 Unilateral inguinal hernia, without obstruction or gangrene, not specified as recurrent; M62.50 Muscle wasting and atrophy, not elsewhere classified, unspecified site; D63.8 Anemia in other chronic diseases classified elsewhere; G72.9 Myopathy, unspecified; I69.920 Aphasia following unspecified cerebrovascular disease; I69.992 Facial weakness following unspecified cerebrovascular disease; Z68.22 Body mass index [BMI] 22.0-22.9, adult; Z91.81 History of falling; Z98.890 Other specified postprocedural states; Z79.82 Long term (current) use of aspirin; Z79.899 Other long term (current) drug therapy; Z90.49 Acquired absence of other specified parts of digestive tract
CPT/HCPCS: 36415; 51702; 70450; 72125; 72170; 74177; 80048; 80053; 81003; 81015; 82550; 82565; 83735; 84100; 85025; 85027; 86140; 87040; 87086; 87088; 87811; 96365; 97116; 97161; 97530; 99285; J0290; J1630; J1650; J3486; J7030; J7040; Q9967

== ENCOUNTER 2022-06-26 12:04 | Inpatient (IN) | payer OTHER ==
--- OUTSIDE RECORDS SUMMARY | 2022-06-26 12:06 | XMS REPORT | Continuity of Care Document ---
:1940 Author Organization [facility] t Address [address] [place] [address] Care Team Providers Name Role Phone Brayden Robles Attending Clinician Unavailable Payers Payer Name Policy Type Policy Number Effective Date Expiration Date S our [employer] MEDICARE 53 [id number] Common Sp henrik [facility] Problems Condition Condition Condition Status Onset Resolution Last Treating Co mments Source Name Details Category Date Date Treatment Clinician Date Urinary Problem Commo n incontinen Spirit ce, - [facility] unspecifie d [facility] [id number] BPH loc w Problem Com mon urin Spirit obs/LUTS [facility] [id number] Incomplete Problem Co mmon emptying Spirit of bladder [facility] [id number] Elevated Problem Comm on PSA [facility] [id number] Recurrent Problem Com mon UTI [facility] [id number] Feeling of Problem Co mmon incomplete Spirit bladder - [facility] emptying [facility] [id number] Postproced Problem C ommon 57744 ural male [facility] urethral - [facility] meatal [facility] [id number] Kidney Problem Common stone [facility] Allergies, Adverse Reactions, Alerts This patient has no known allergies or adverse reactions. Social History Social Habit Start Date Stop Date Quantity Comments Source Sex Assigned At Com mon [facility] History of Tobacco Use Co mmon [facility] Medications Ordered Filled Start Stop Current Ordering Indication Dosage Frequency Signature Comments Components Source Medication Medication Date Date Medication? Clinician (SIG) Name Name Ravenfurandirk Nitrofurant 2021- No 1{capsu QD Nitrofuran oin Monohyd oin Monohyd -14 11-15 le_with toin Macro 100 Macro 100 00:00: 00:00 _food} Monohyd MG MG 00 :00 Macro 100 MG Flomax 0.4 Flomax 0.4 2021- No 1{capsu QD Flomax 0.4 MG MG 01-06 le} MG 00:00: 00:00 00 :00 Trileptal Trileptal No 1{table BID Trileptal 300 MG 300 MG t} 300 MG Losartan Losartan No 1{table QD Losartan Potassium Potassium t} Potassium 100 MG 100 MG 100 MG Aricept 10 Aricept 10 No 1{table QD Aricept 10 MG MG t_at_be MG dtime} Loratadine Loratadine No 1{table QD Loratadine 10 MG 10 MG t} 10 MG amLODIPine amLODIPine No 1{table QD amLODIPine Besylate 10 Besylate 10 t} Besylate MG MG 10 MG Memantine Memantine No 1{table BID Memantine HCl 10 MG HCl 10 MG t} HCl 10 MG Pravastatin Pravastatin No 1{table QD Pravastati Sodium 40 Sodium 40 t} n Sodium MG MG 40 MG Procedures This patient has no known procedures. Encounters Start End Encounter Admission Attending Care Care Encounter Source Date/Time Date/Time Type Type Clinicians Facility Department ID 2022-06-10 Outpatient Brayden Robles [facility] [id number] Common 14:30:03 [facility] 2022-04-21 Outpatient Brayden Robles [facility] [id number] Common 13:20:02 [id number] [facility] 2022-05-17 2022-05-17 (PROC) [facility] [id number] Co mmon 00:00:00 00:00:00 Procedure Spir [facility] 2022-04-21 2022-04-21 ambulatory [facility] [id number] Common 00:00:00 00:00:00 [facility] Results This patient has no known results.
[2022-06-26 13:04] LABS: Protime INR 1.06
[2022-06-26 13:07] LABS: Absolute Lymphocytes (CBC) 0.9 K/uL (0.7-4.9); Hematocrit 36.4 % (39.6-49.0); Lymphocytes % 7.3 % (15.3-44.8); MCV 95.6 fL (80-100); MPV 7.6 fL (7.6-11.3); RBC Red Blood Cell Count 3.81 M/uL (4.33-5.43)
[2022-06-26 13:20] LABS: Albumin 2.6 g/dL (3.4-5.0); Bilirubin Total 0.6 mg/dL (0.2-1.0); Potassium 3.7 mmol/L (3.5-5.1); Protein, Total 6.5 g/dL (6.4-8.2)
--- NOTE | 2022-06-26 13:22 | RAD REPORT ---
EXAM DESCRIPTION: Anamaria Single View06/26/2022 12:51 pm CLINICAL HISTORY: Shortness of breath COMPARISON: May 2022 FINDINGS: Calcified pleural plaques. The lungs appear clear of acute infiltrate. The heart is normal size IMPRESSION: No acute abnormalities displayed
--- NOTE | 2022-06-26 13:33 | RAD REPORT ---
EXAM DESCRIPTION: CT - Head Brain Wo Cont - 06/26/2022 1:12 pm CLINICAL HISTORY: Alteration of awareness/confusion COMPARISON: May 2022 TECHNIQUE: Computed axial tomography of the head was obtained. IV contrast was not requested. All CT scans are performed using dose optimization technique as appropriate and may include automated exposure control or mA/KV adjustment according to patient size. FINDINGS: An intracranial bleed is not seen . The ventricles are normal in caliber. No extra-axial fluid collection is noted. 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 Fluid within the sinuses/ mastoids is not seen. IMPRESSION: No acute intracranial abnormality is seen. If patient's symptoms persist MRI of the bra in would be recommended.
[2022-06-26 14:13] LABS: Urine Blood 2+ (Negative); Urine Glucose Negative (Negative); Urine Protein 1+ (Negative); Urine Specific Gravity 1.015 (1.005-1.030)
[2022-06-26 14:19] LABS: Urine Bacteria <20 /HPF (<20); Urine Mucus 4+ /HPF (None Seen); Urine RBC >50 /HPF (None Seen); Urine WBC Clump Few /HPF (None Seen)
--- NOTE | 2022-06-26 14:49 | EDPHYS ---
Physician Documentation [facility] Name: John Matias Age: 82 yrs Sex: Male : 1940 Arrival Date: 06/26/2022 Time: 12:15 Bed 4 Private MD: ED Physician Jose Johnson HPI: 06/26 14:56 This 82 yrs old Male presents to ER via EMS with complaints of AMS. rn 14:56 The patient presents with agitation, confusion, decreased responsiveness. Onset: The rn symptoms/episode began/occurred at an unknown time. Possible causes: unknown. Current symptoms: In the emergency department the patient's symptoms are unchanged from the initial presentation. The patient has experienced similar episodes in the past. The patient has been recently been admitted at [facility]. EMS reports AMS, family called 911 for decreased responsiveness and agitation, noticed this AM, but unsure true onset. Has been treated for UTI with recent hospitalization for UTI. . Historical: - Allergies: 12:20 No Known Allergies; jd3 - Home Meds: 12:20 amlodipine 10 mg tab 1 tab once daily [Active]; Aspirin Oral 81 mg daily [Active]; jd3 cefdinir 300 mg bid [Active]; donepezil 10 mg Oral tab 1 tab once daily [Active]; loratadine 10 mg Oral tab 1 tab once daily [Active]; losartan 100 mg Oral tab 1 tab once daily [Active]; memantine 10 mg Oral tab 1 tab 2 times per day [Active]; Nitrofurantoin Macrocrystal Oral 100 mg daily [Active]; oxcarbazepine 300 mg Oral tab 1 tab 2 times per day [Active]; pravastatin 40 mg Oral tab 1 tab once daily [Active]; tamsulosin 0.4 mg Oral cap 1 cap once daily [Active]; - PMHx: 12:20 CVA; Hypertension; Seizures; jd3 - Immunization history:: Adult Immunizations unknown. - Social history:: Smoking status: unknown. - Family history:: not pertinent. - Hospitalizations: : The patient was recently seen at [facility]. ROS: 14:56 Unable to obtain ROS due to altered mental status. rn Exam: 14:56 Constitutional: This is a well developed, well nourished patient who is awake, alert, rn slightly agitated Head/Face: Normocephalic, atraumatic. Eyes: Periorbital areas with no swelling, redness, or edema. ENT: dry MM Cardiovascular: Bradycardic, regular. No pulse deficits. Respiratory: No increased work of breathing, no retractions or nasal flaring. Abdomen/GI: Soft, non-tender Skin: Warm, dry MS/ Extremity: Pulses equal, no cyanosis. Neurovascular intact. Full, normal range of motion. Equal circumference. Neuro: Awake and alert, GCS 15, moves all 4 extremities with equal strength. 15:23 ECG was reviewed by the Attending Physician. rn Vital Signs: 12:20 BP 109 / 59; Pulse 67; Resp 19 S; Temp 97.5(O); Pulse Ox 99% on 2 lpm NC; Weight 81.65 jd3 kg (R); Height 5 ft. 7 in. (170.18 cm) (R); 13:35 BP 108 / 56; Pulse 59; Resp 19 S; Pulse Ox 100% on 2 lpm NC; jd3 14:18 BP 123 / 59; Pulse 54; Resp 18; Pulse Ox 100% on 2 lpm NC; jd3 15:33 BP 126 / 59; Pulse 61; Resp 18; Pulse Ox 100% on 2 lpm NC; jd3 16:51 BP 130 / 54; Pulse 63; Resp 17 S; Pulse Ox 100% on 2 lpm NC; jd3 12:20 Body Mass Index 28.19 (81.65 kg, 170.18 cm) jd3 MDM: 12:16 Patient medically screened. rn 15:00 Differential Diagnosis: CVA, electrolyte abnormality, pneumonia, UTI, volume depletion. rn Data reviewed: vital signs, nurses notes, old medical records, lab test result(s), EKG, radiologic studies, CT scan, plain films, and as a result, I will admit patient. Counseling: I had a detailed discussion with the patient and/or guardian regarding: the historical points, exam findings, and any diagnostic results supporting the discharge/admit diagnosis, lab results, radiology results, the need for further work-up and treatment in the hospital. Response to treatment: the patient's symptoms have mildly improved after treatment, and as a result, I will admit patient. Admission orders: after a detailed discussion of the patient's condition and case, the admit orders are written by me. ED course: Pt improved, less agitated, more calm.. 06/26 12:18 Order name: Blood Culture Adult (2) rn 06/26 12:18 Order name: CBC with Diff; Complete Time: 13:41 rn 06/26 12:18 Order name: CMP; Complete Time: 13:41 rn 06/26 12:18 Order name: Lactate; Complete Time: 13:41 rn 06/26 12:18 Order name: Protime (+inr); Complete Time: 13:41 rn 06/26 12:18 Order name: Ptt, Activated; Complete Time: 13:41 rn 06/26 12:18 Order name: Urine Culture rn 06/26 12:18 Order name: Urine Microscopic Only; Complete Time: 15:02 rn 06/26 12:18 Order name: BNP; Complete Time: 13:41 rn 06/26 12:18 Order name: SARS-COV-2 RT PCR (Document "Date of Onset" if Symptomatic); Complete Time: rn 13:41 06/26 12:18 Order name: Flu; Complete Time: 13:41 rn 06/26 14:14 Order name: Urine Dipstick-Ancillary; Complete Time: 14:40 EDMS 06/26 16:22 Order name: CBC with Automated Diff EDMS 06/26 16:22 Order name: CBC with Automated Diff EDMS 06/26 12:18 Order name: Chest Single View XRAY; Complete Time: 13:41 rn 06/26 12:18 Order name: Accucheck; Complete Time: 13:07 rn 06/26 12:18 Order name: Cardiac monitoring; Complete Time: 12:25 rn 06/26 12:18 Order name: Cath; Complete Time: 14:17 rn 06/26 12:18 Order name: EKG - Nurse/Tech; Complete Time: 14:17 rn 06/26 12:18 Order name: IV Saline Lock - Large Bore; Complete Time: 12:25 rn 06/26 12:18 Order name: Labs collected and sent; Complete Time: 13:07 rn 06/26 12:18 Order name: O2 Per Protocol; Complete Time: 12:25 rn 06/26 12:18 Order name: CT Head Brain wo Cont; Complete Time: 13:41 rn 06/26 16:22 Order name: Regular EDMS 06/26 16:22 Order name: Comprehensive Metabolic Panel EDMS 06/26 16:22 Order name: Comprehensive Metabolic Panel [facility] 06/26 16:22 Order name: Procalcitonin [facility] 06/26 16:22 Order name: Procalcitonin [facility] 06/26 16:26 Order name: Diet Heart Healthy; Complete Time: 16:26 06/26 12:18 Order name: O2 Sat Monitoring; Complete Time: 12:24 rn 06/26 12:18 Order name: Urine Dipstick-Ancillary (obtain specimen); Complete Time: 14:17 rn 06/26 12:18 Order name: Vital Signs; Complete Time: 12:24 rn EC: Rate is 63 beats/min. Rhythm is regular. Left axis deviation noted. QRS is positive in rn lead I and negative in lead aVF. AK interval is normal. QRS interval is normal. QT interval is normal. No Q waves. T waves are Normal. No ST changes noted. Clinical impression: NSR w/ Non-specific ST/T Changes. Interpreted by me. Reviewed by me. Administered Medications: 15:02 Drug: Rocephin (cefTRIAXone) 1 grams Route: IV; Rate: calculated rate; Site: left jd3 antecubital; 16:00 Follow up: Response: No adverse reaction; IV Status: Completed infusion jd3 Disposition Summary: 06/26/22 14:48 Hospitalization Ordered Hospitalization Status: Inpatient Admission rn Provider: Markel Vo rn Location: Telemetry/[facility] (Inpatient) rn Condition: Stable rn Problem: new rn Symptoms: are unchanged rn Bed/Room Type: Standard rn Room Assignment: 403(06/26/22 17:18) dw Diagnosis - Altered mental status, unspecified rn - UTI/ Urinary tract infection, site not specified rn Forms: - Medication Reconciliation Form rn - SBAR form rn Signatures: Dispatcher KaneHoJosie Hernandez RN RN dw Jose Johnson MD MD rn Davies, Jonathon, RN RN jd3 Corrections: (The following items were deleted from the chart) 17:18 14:48 rn dw
--- NOTE | 2022-06-26 14:49 | ER ---
Nurse's Notes [facility] Name: John Matias Age: 82 yrs Sex: Male : 1940 Arrival Date: 06/26/2022 Time: 12:15 Bed 4 Private MD: Diagnosis: Altered mental status, unspecified;UTI/ Urinary tract infection, site not specified Presentation: 06/26 12:16 Chief complaint: EMS states: "family called for a pt that is more AMS than normal. he jd3 is altered at baseline, but has not been able to speak to us today. initially axillary temp was 94.4 and he did go unresponsive on us in the truck a couple of times. we started an 18 G IV to the right AC and started on NS and gave 1 dose of atropine for a heart rate of 42. BGL was 163. stable blood pressures. last known well today was at 1030. pt was recently hospitalized related to a UTI.". Coronavirus screen: At this time, the client does not indicate any symptoms associated with coronavirus-19. Ebola Screen: No symptoms or risks identified at this time. Initial Sepsis Screen: Does the patient meet any 2 criteria? Altered Mental Status. No. Patient's initial sepsis screen is negative. Does the patient have a suspected source of infection? No. Patient's initial sepsis screen is negative. Risk Assessment: Do you want to hurt yourself or someone else? Patient reports no desire to harm self or others. Onset of symptoms was June 26, 2022. 12:16 Method Of Arrival: EMS: [facility] jd3 12:16 Acuity: AGATHA 2 jd3 Historical: - Allergies: 12:20 No Known Allergies; jd3 - Home Meds: 12:20 amlodipine 10 mg tab 1 tab once daily [Active]; Aspirin Oral 81 mg daily [Active]; jd3 cefdinir 300 mg bid [Active]; donepezil 10 mg Oral tab 1 tab once daily [Active]; loratadine 10 mg Oral tab 1 tab once daily [Active]; losartan 100 mg Oral tab 1 tab once daily [Active]; memantine 10 mg Oral tab 1 tab 2 times per day [Active]; Nitrofurantoin Macrocrystal Oral 100 mg daily [Active]; oxcarbazepine 300 mg Oral tab 1 tab 2 times per day [Active]; pravastatin 40 mg Oral tab 1 tab once daily [Active]; tamsulosin 0.4 mg Oral cap 1 cap once daily [Active]; - PMHx: 12:20 CVA; Hypertension; Seizures; jd3 - Immunization history:: Adult Immunizations unknown. - Social history:: Smoking status: unknown. - Family history:: not pertinent. - Hospitalizations: : The patient was recently seen at [facility]. Screenin:24 Abuse screen: Denies threats or abuse. Nutritional screening: No deficits noted. jd3 Tuberculosis screening: No symptoms or risk factors identified. Fall Risk IV access (20 points). Ambulatory Aid- Crutches/Cane/Walker (15 pts). Gait- Weak (10 pts.). Mental Status- Overestimates/Forgets Limitations (15 pts.). Total Hoffman Fall Scale indicates High Risk Score (45 or more points). Fall prevention measures have been instituted. Side Rails Up X 2 Placed Close to Nursing Station Frequent Obs/Assessments Occuring Family Present and informed to notify staff if the need to leave the bedside. Assessment: 12:22 General: Appears in no apparent distress. comfortable, Behavior is calm, cooperative, jd3 appropriate for age. Pain: Unable to use pain scale. FLACC scale score is 0 out of 10. Neuro: Shah Agitation-Sedation Scale (RASS): -1 Drowsy Level of Consciousness is awake, obeys commands, confused, lethargic, Oriented to none pt not answer questions at this time. Pupils are PERRLA. Cardiovascular: Heart tones S1 S2 present Capillary refill < 3 seconds Patient's skin is warm and dry. Respiratory: Airway is patent Respiratory effort is even, unlabored, Respiratory pattern is regular, symmetrical, Breath sounds are clear bilaterally. GI: No signs and/or symptoms were reported involving the gastrointestinal system. : No signs and/or symptoms were reported regarding the genitourinary system. EENT: No signs and/or symptoms were reported regarding the EENT system. Derm: Skin is intact, Skin is dry, Skin is pale, Skin temperature is warm. Musculoskeletal: Circulation, motion, and sensation intact. Range of motion: intact in all extremities. 13:34 Reassessment: Patient appears in no apparent distress at this time. No changes from jd3 previously documented assessment. Patient and/or family updated on plan of care and expected duration. Pain level reassessed. 14:18 Reassessment: No changes from previously documented assessment. Patient and/or family jd3 updated on plan of care and expected duration. Pain level reassessed. 15:15 Reassessment: Patient appears in no apparent distress at this time. No changes from jd3 previously documented assessment. Patient and/or family updated on plan of care and expected duration. Pain level reassessed. 16:51 Reassessment: Patient appears in no apparent distress at this time. No changes from jd3 previously documented assessment. Patient and/or family updated on plan of care and expected duration. Pain level reassessed. Patient denies pain at this time. Vital Signs: 12:20 BP 109 / 59; Pulse 67; Resp 19 S; Temp 97.5(O); Pulse Ox 99% on 2 lpm NC; Weight 81.65 jd3 kg (R); Height 5 ft. 7 in. (170.18 cm) (R); 13:35 BP 108 / 56; Pulse 59; Resp 19 S; Pulse Ox 100% on 2 lpm NC; jd3 14:18 BP 123 / 59; Pulse 54; Resp 18; Pulse Ox 100% on 2 lpm NC; jd3 15:33 BP 126 / 59; Pulse 61; Resp 18; Pulse Ox 100% on 2 lpm NC; jd3 16:51 BP 130 / 54; Pulse 63; Resp 17 S; Pulse Ox 100% on 2 lpm NC; jd3 12:20 Body Mass Index 28.19 (81.65 kg, 170.18 cm) jd3 ED Course: 12:15 Patient arrived in ED. eb 12:16 Amado Tejeda RN is Primary Nurse. jd3 12:16 Jose Johnson MD is Attending Physician. rn 12:20 Triage completed. jd3 12:22 Arm band placed on. jd3 12:24 Patient has correct armband on for positive identification. Placed in gown. Bed in low jd3 position. Call light in reach. Side rails up X2. Client placed on continuous cardiac and pulse oximetry monitoring. NIBP monitoring applied. paper supervisor on. Pulse ox on. NIBP on. Warm blanket given. 12:48 Inserted saline lock: 20 gauge in left antecubital area, using aseptic technique. Blood iw collected. placed by Amado CABRAL. 12:48 Missed attempt(s): 18 gauge in right antecubital area. Bleeding controlled, band aid jd3 applied, catheter tip intact. 12:52 Chest Single View XRAY In Process Unspecified. EDMS 13:13 CT Head Brain wo Cont In Process Unspecified. EDMS 14:00 Lopez cath inserted, using sterile technique, 16 Fr., by wv, balloon inflated, urine jd3 specimen collected. returned cloudy urine. Patient tolerated well. 14:47 Markel Vo MD is Hospitalizing Provider. rn 17:32 No provider procedures requiring assistance completed. Patient admitted, IV remains in jd3 place. Administered Medications: 15:02 Drug: Rocephin (cefTRIAXone) 1 grams Route: IV; Rate: calculated rate; Site: left jd3 antecubital; 16:00 Follow up: Response: No adverse reaction; IV Status: Completed infusion jd3 Medication: 12:24 VIS not applicable for this client. jd3 Outcome: 14:48 Decision to Hospitalize by Provider. rn 17:32 Admitted to Tele accompanied by [facility], via stretcher, room 403, with oxygen, with chart, jd3 Report called to Didier CABRAL 17:32 Condition: stable 17:32 Instructed on the need for admit. 17:57 Patient left the ED. jd3 Signatures: Dispatcher [employer] Candi French, RN Jose Mims MD MD rn Davies, Jonathon, RN RN jd3 Botello, Elizabeth eb
[2022-06-26] MEDS ORDERED: CEFTRIAXONE 1000 MG/VIAL ONE (14:56)
[2022-06-26] MEDS ORDERED: NA CHLORIDE 0.9% 50 ML IV ONE (14:58)
[2022-06-26] MEDS ORDERED: ONDANSETRON 4 MG/2 ML VIAL IV PRN (16:18)
[2022-06-26] MEDS: NA CHLORIDE 0.9% 1,000 ML IV SCH (18:14)
[2022-06-26] MEDS: CEFTRIAXONE 1,000 MG in NA CHLORIDE 0.9% 50 ML IVPB SCH (20:06)
[2022-06-26] MEDS: ACETAMINOPHEN 500 MG TAB PO PRN (20:11)
[2022-06-26] MEDS: DONEPEZIL HCL 5 MG TAB PO SCH (21:11)
[2022-06-26] MEDS: MEMANTINE HCL 10 MG TABLET PO SCH (21:11)
--- NOTE | 2022-06-26 21:28 | P.HP ---
Certification for Inpatient Patient admitted to: Observation With expected LOS: <2 Midnights Patient will require the following post-hospital care: None Practitioner: I am a practitioner with admitting privileges, knowledge of patient current condition, hospital course, and medical plan of care. Services: Services provided to patient in accordance with Admission requirements found in Title 42 Section 412.3 of the Code of Federal Regulations Patient History Date of Service: 06/26/22 Reason for admission: Urinary tract infection with toxic encephalopathy History of Present Illness: Patient is an 82-year-old gentleman who came to the hospital with altered mental status. Patient was found to have urinary tract infection. Patient has toxic encephalopathy most likely from the urinary tract infection. CT of the head was negative. Patient was started on IV fluids and IV antibiotics. Patient is stills confused. Will continue with treatment overnight. She is mentation is not improving will change to inpatient hospitalization. If he is improved back to baseline then anticipate discharge home. Allergies No Known Allergies Allergy (Verified 08/24/14 23:15) Home Medications: Oxcarbazepine 1 tab PO BID 09/13/15 Pravastatin Sodium 1 tab PO BEDTIME 09/13/15 Amlodipine Besylate 2 tab PO DAILY 04/19/16 Loratadine 1 tab PO DAILY 04/19/16 Donepezil HCl 1 tab PO DAILY 05/20/22 Losartan Potassium [Cozaar] 1 tab PO DAILY 05/20/22 Memantine HCl 10 mg PO BID 05/20/22 Tamsulosin [Flomax*] 1 tab PO BEDTIME 05/20/22 Aspirin Chewable [Aspirin Chewable*] 81 mg PO DAILY #30 tab.chew 05/25/22 Nitrofurantoin Monohyd/M-Cryst [Nitrofurantoin Hettinger-Mcr 100 mg] 1 dose PO TID 06/26/22 - Past Medical/Surgical History Diabetic: No -: HTN -: CVA, residual facial droop -: DIVERTICULITIS -: Expressive dysphasia -: Possible history of Seizures -: BPH -: COLON RESECTION - Family History Father Family History: Reviewed- Non-Contributory - Social History Smoking Status: Former smoker Alcohol use: No CD- Drugs: No Caffeine use: Yes Review of Systems is unable to be obtained Physical Examination - Vital Signs Temperature: 97.9 F Blood Pressure: 151/70 Pulse: 65 Respirations: 18 Pulse Ox (%): 96 - Physical Exam General: Alert, In no apparent distress, Confused HEENT: Atraumatic, PERRLA, Mucous membr. moist/pink, EOMI, Sclerae nonicteric Neck: Supple, 2+ carotid pulse no bruit, No LAD, Without JVD or thyroid abnormality Respiratory: Clear to auscultation bilaterally, Normal air movement Cardiovascular: Regular rate/rhythm, Normal S1 S2 Gastrointestinal: Normal bowel sounds, Soft and benign, Non-distended, No tenderness Musculoskeletal: No tenderness Integumentary: No rashes Neurological: Normal speech, Normal tone, Sensation intact, Cranial nerves 3-12 intact, Normal affect, Abnormal gait, Abnormal strength Lymphatics: No axilla or inguinal lymphadenopathy - Studies Laboratory Data (last 24 hrs) 06/26/22 12:45: PT 11.7, INR 1.06, APTT 28.0 06/26/22 12:45: Sodium 141, Potassium 3.7, BUN 23 H, Creatinine 1.14, Glucose 121 H, Total Bilirubin 0.6, AST 22, ALT 50, Alkaline Phosphatase 92 06/26/22 12:45: WBC 12.40 H, Hgb 12.0 L, Hct 36.4 L, Plt Count 375 Microbiology Data (last 24 hrs): 06/26/22 12:51 Nasopharnyx Influenza Type A Antigen Screen - Final 06/26/22 12:51 Nasopharnyx Influenza Type B Antigen Screen - Final Assessment & Plan - Problems (Diagnosis) (1) Dementia Current Visit: No Status: Acute (2) History of CVA (cerebrovascular accident) Current Visit: No Status: Acute (3) UTI (urinary tract infection) Current Visit: No Status: Acute Qualifiers: (4) HTN (hypertension) Current Visit: No Status: Chronic (5) Hyperlipidemia Current Visit: No Status: Chronic (6) Seizure disorder Current Visit: No Status: Chronic (7) Toxic encephalopathy Current Visit: Yes Status: Acute - Plan Plan: 1. IV antibiotics 2. IV hydration 3. Neuro status will be re-evaluated every 6-8 hours 4. continue with monitoring cultures 5. Continue with home medications along with anti epileptics 6. Strict blood pressure and blood sugar control 7. Gi and DVT prophylaxis Discharge Plan: Home Plan to discharge in: Greater than 2 days - Advance Directives Does patient have a Living Will: No Does patient have a Durable POA for Healthcare: No - Code Status/Comfort Care Code Status Assessed: Yes Code Status: Full Code Critical Care: No Time Spent Managing PTS Care (In Minutes): 45
[2022-06-26 21:59] VITALS: BMI 28.1
[2022-06-26] MEDS: MORPHINE 2 MG/ML SYR IV PRN (22:29)
[2022-06-27] MEDS: HALOPERIDOL LACT 5 MG/ML INJ IV PRN ×2 (03:20→21:38)
[2022-06-27 04:02] LABS: Absolute Lymphocytes (CBC) 1.9 K/uL (0.7-4.9); Hematocrit 37.2 % (39.6-49.0); Lymphocytes % 16.4 % (15.3-44.8); MCV 95.6 fL (80-100); RBC Red Blood Cell Count 3.89 M/uL (4.33-5.43)
[2022-06-27] MEDS: MORPHINE 2 MG/ML SYR IV PRN ×4 (04:14→20:34)
[2022-06-27 04:18] LABS: Albumin 2.7 g/dL (3.4-5.0); Bilirubin Total 0.5 mg/dL (0.2-1.0); Potassium 3.7 mmol/L (3.5-5.1); Protein, Total 6.7 g/dL (6.4-8.2)
[2022-06-27] MEDS: NA CHLORIDE 0.9% 1,000 ML IV SCH ×2 (06:20→16:55)
[2022-06-27] MEDS ORDERED: INFLUENZA VACCINE (for 6+ mo) 0.5 ML DOSE IMVAC ONE (09:00)
[2022-06-27] MEDS: DONEPEZIL HCL 5 MG TAB PO SCH (09:17)
[2022-06-27] MEDS: LOSARTAN POTASSIUM 50 MG TABLET PO SCH (09:17)
[2022-06-27] MEDS: AMLODIPINE 5 MG TAB PO SCH (09:17)
[2022-06-27] MEDS: LORATADINE 10 MG TAB PO SCH (09:17)
[2022-06-27] MEDS: ASPIRIN 81 MG CHEWABLE TABLET PO SCH (09:17)
[2022-06-27] MEDS: MEMANTINE HCL 10 MG TABLET PO SCH ×2 (09:17→20:36)
[2022-06-27] MEDS: CEFTRIAXONE 1,000 MG in NA CHLORIDE 0.9% 50 ML IVPB SCH ×2 (09:18→20:36)
[2022-06-27] MEDS: OXcarbazepine 150 MG TAB PO SCH ×2 (09:18→20:35)
[2022-06-27] MEDS: ACETAMINOPHEN 500 MG TAB PO PRN (09:20)
[2022-06-27] MEDS ORDERED: ATORVASTATIN 10 MG TAB PO SCH (21:00)
[2022-06-27] MEDS ORDERED: TAMSULOSIN 0.4 MG SR CAP PO SCH (21:00)
[2022-06-28 00:49] VITALS: O2SAT 94
[2022-06-28] MEDS ORDERED: CEFTRIAXONE 1000 MG/VIAL ONE (07:49)
[2022-06-28] MEDS ORDERED: NA CHLORIDE 0.9% 50 ML ONE (07:51)
--- NOTE | 2022-06-28 08:25 | P.DS ---
Admission Date: 06/26/22 Discharge Date: 06/28/22 Primary Care Provider: Dr. 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 John Matias is an 82 year old male with a past medical history significant for cerebrovascular accident with residual expressive aphasia/residual facial d maria guadalupe, seizure disorder, dementia, hypertension, and benign prostatic hyperplasia who was admitted to the [facility] on 06/26/2022 for altered mental status. He was to the Medicine service. He was found to have a urinary tract infection, likely resulting in acute toxic metabolic encephalopathy. He was treated with IV antibiotics, with improvement of his symptoms. His , Ms. Nunes, saw him today and endorsed that he is now at his mental baseline. She mentions that he has an appointment with Dr. Linares to address urinary retention and she feels that this appointment may need to be expedited due to his recurrent urinary tract infections. I agreed and advised that she call his office and see if they can schedule an appointment sooner. I have also notified Dr. Linares. On 06/28/2022, he was seen on morning rounds and deemed medically stable for discharge. He was discharged with instructions to schedule follow-up appointments with his PCP (Dr. Robles) in 3-5 days and with Urology (Dr. Linares) in 5-7 days of possible. He was provided a prescription for cefdinir. He and his were given the opportunity to ask questions and reported no further questions. Furthermore, all questions were answered to the best of my ability. A copy of this discharge summary will be sent to the above providers to facilitate continuity of care. Today, I personally spent 35 minutes on his case, of which greater than 50% of the time was spent in patient education, counseling, and coordination of care as described above. ADDENDUM - 06/28/2022 - 15:13 Post discharge, I became aware that he had not urinated post-Lopez catheter removal. I called his , Ms. Nunes, and explained that, if he does not urinate in the next 1-2 hours, she will need to return to the Emergency Department to have a Lopez catheter placed. I emphasized the importance of this as urinary retention may result in hydronephrosis and permanent renal damage. She verbalized her understanding and agreed to bring him back to the Emergency Department. I have notified the on-call Emergency Department attending. - Physical Exam General: Alert, In no apparent distress, Demented, Other (expressive aphasia) HEENT: Atraumatic, Mucous membr. moist/pink, EOMI, Sclerae nonicteric Neck: Supple, JVD not distended Respiratory: Clear to auscultation bilaterally, Normal air movement Cardiovascular: Regular rate/rhythm, Normal S1 S2, No gallops, No rubs, No murmurs, Edema (trace) Gastrointestinal: Normal bowel sounds, Soft and benign, Non-distended, No tenderness, No rebound, No guarding Musculoskeletal: No clubbing Integumentary: No rashes Neurological: Other (expressive aphasia), Dementia Vital Signs/Physical Exam: Temp Pulse Resp BP Pulse Ox 97.6 F 58 12 96/46 L 94 06/28/22 07:26 06/28/22 07:26 06/28/22 07:26 06/28/22 07:26 06/28/22 07:26 Laboratory Data at Discharge: WBC 11.60 K/uL (4.3-10.9) H 06/27/22 03:41 Hgb 12.2 g/dL (13.6-17.9) L 06/27/22 03:41 Hct 37.2 % (39.6-49.0) L 06/27/22 03:41 Plt Count 346 K/uL (152-406) 06/27/22 03:41 PT 11.7 SECONDS (9.5-12.5) 06/26/22 12:45 INR 1.06 06/26/22 12:45 APTT 28.0 SECONDS (24.3-36.9) 06/26/22 12:45 Sodium 139 mmol/L (136-145) 06/27/22 03:41 Potassium 3.7 mmol/L (3.5-5.1) 06/27/22 03:41 BUN 20 mg/dL (7-18) H 06/27/22 03:41 Creatinine 0.96 mg/dL (0.55-1.3) 06/27/22 03:41 Glucose 108 mg/dL (74-106) H 06/27/22 03:41 Total Bilirubin 0.5 mg/dL (0.2-1.0) 06/27/22 03:41 AST 26 U/L (15-37) 06/27/22 03:41 ALT 53 U/L (12-78) 06/27/22 03:41 Alkaline Phosphatase 101 U/L (45-117) 06/27/22 03:41 Home Medications: Oxcarbazepine 1 tab PO BID 09/13/15 Pravastatin Sodium 1 tab PO BEDTIME 09/13/15 Amlodipine Besylate 2 tab PO DAILY 04/19/16 Loratadine 1 tab PO DAILY 04/19/16 Donepezil HCl 1 tab PO DAILY 05/20/22 Losartan Potassium [Cozaar] 1 tab PO DAILY 05/20/22 Memantine HCl 10 mg PO BID 05/20/22 Tamsulosin [Flomax*] 1 tab PO BEDTIME 05/20/22 Aspirin Chewable [Aspirin Chewable*] 81 mg PO DAILY #30 tab.chew 05/25/22 Cefdinir [Cefdinir*] 300 mg PO BID 7 Days #14 cap 06/28/22 New Medications: Cefdinir [Cefdinir*] 300 mg PO BID 7 Days #14 cap Physician Discharge Instructions: 1. Please schedule a follow-up appointment with your PCP (Dr. Robles) in 3-5 days 2. Please schedule a follow-up appointment with your Urology (Dr. Linares) in 5- 7 days Diet: AHA Activity: Ad hal Followup: Brayden Robles MD [Primary Care Provider] - (call for an apt in 3-5 days) Max Linares [ACTIVE - CAN ADMIT] - Time spent managing pt's care (in minutes): 35
[2022-06-28] MEDS: LORATADINE 10 MG TAB PO SCH (08:51)
[2022-06-28] MEDS: LOSARTAN POTASSIUM 50 MG TABLET PO SCH (08:51)
[2022-06-28] MEDS: ASPIRIN 81 MG CHEWABLE TABLET PO SCH (08:51)
[2022-06-28] MEDS: DONEPEZIL HCL 5 MG TAB PO SCH (08:51)
[2022-06-28] MEDS: AMLODIPINE 5 MG TAB PO SCH (08:51)
[2022-06-28] MEDS: MEMANTINE HCL 10 MG TABLET PO SCH (08:51)
[2022-06-28] MEDS: CEFTRIAXONE 1,000 MG in NA CHLORIDE 0.9% 50 ML IVPB SCH (08:53)
--- NOTE | 2022-06-28 09:16 | P.PN ---
Date of Service: 06/27/22 Subjective clinically patient appears to be doing better. Symptoms are improving. however, he did get out of bed today and was found sitting next to the bed. The nurses heard the bed alarm and went to his room and he was next to his bed. They did not hear a fall. They state they got there almost immediately. Physical Examination - Vital Signs Reviewed - Physical Exam General: Alert, In no apparent distress, Confused Respiratory: Clear to auscultation bilaterally, Normal air movement Cardiovascular: Regular rate/rhythm, Normal S1 S2 Gastrointestinal: Normal bowel sounds, Soft and benign, Non-distended, No tenderness Neurological: Normal speech, Normal tone, Sensation intact, Cranial nerves 3-12 intact, Normal affect, Abnormal gait, Abnormal strength Assessment & Plan - Problems (Diagnosis) (1) Dementia Current Visit: No Status: Acute (2) History of CVA (cerebrovascular accident) Current Visit: No Status: Acute (3) UTI (urinary tract infection) Current Visit: No Status: Acute Qualifiers: (4) HTN (hypertension) Current Visit: No Status: Chronic (5) Hyperlipidemia Current Visit: No Status: Chronic (6) Seizure disorder Current Visit: No Status: Chronic (7) Toxic encephalopathy Current Visit: Yes Status: Acute - Plan Continue with plan of care as mentioned below: 1. IV antibiotics 2. IV hydration 3. Neuro status Improving; patient will be discharged over the next 24-48 hours with family. Unable to go to a shelter because of his prior conviction. 4. continue with monitoring cultures 5. Continue with home medications along with anti epileptics 6. Strict blood pressure and blood sugar control 7. Gi and DVT prophylaxis
[2022-06-28 11:28] VITALS: BP 141/60; TEMP 97.5
--- NOTE | 2022-06-28 18:43 | EKG ---
Test Date: 2022-06-26 Test Time: 13:20:37 Retail Asset Protection Specialist: REYMUNDO MEASUREMENT RESULTS: Intervals: Rate: 63 MS: 136 QRSD: 140 QT: 450 QTc: 460 [place]: P: 41 MS: 136 QRS: -62 T: 26 INTERPRETIVE STATEMENTS: Sinus rhythm with premature supraventricular complexes Left axis deviation Right bundle branch block Abnormal ECG Compared to ECG 05/21/2022 14:53:16 Left-axis deviation now present Sinus tachycardia no longer present Fusion complex(es) no longer present Ventricular premature complex(es) no longer present Electronically Signed On 06-28-22 18:38:56 CDT by Mario Ferguson
== END 2022-06-28 14:57 | disposition home health service (06) | DRG 689 ==
LOC: ER 12:04 → ERHOLD 16:18 → 4TH 17:34 → OBSVTOIN 06-27 17:06
PROVIDERS: ADMIT Hospitalist; ATTEND Internal Medicine
DX: N39.0 Urinary tract infection, site not specified (principal); G92.8 Other toxic encephalopathy; I10 Essential (primary) hypertension; E78.5 Hyperlipidemia, unspecified; N40.1 Benign prostatic hyperplasia with lower urinary tract symptoms; R33.8 Other retention of urine; F03.90 Unspecified dementia, unspecified severity, without behavioral disturbance, psychotic disturbance, mood disturbance, and anxiety; G40.909 Epilepsy, unspecified, not intractable, without status epilepticus; I69.392 Facial weakness following cerebral infarction; I69.320 Aphasia following cerebral infarction; R31.29 Other microscopic hematuria; Z90.49 Acquired absence of other specified parts of digestive tract; Z79.82 Long term (current) use of aspirin; Z87.891 Personal history of nicotine dependence; Z79.899 Other long term (current) drug therapy; Z20.822 Contact with and (suspected) exposure to COVID-19
CPT/HCPCS: 36415; 51702; 70450; 71045; 80053; 81003; 81015; 83605; 83880; 84145; 85025; 85610; 85730; 87040; 87086; 87088; 87804; 93005; 96365; 99285; G0378; J1630; J2270; J7030; U0003

== ENCOUNTER 2022-08-16 18:58 | Observation (INO) | payer OTHER ==
--- OUTSIDE RECORDS SUMMARY | 2022-08-16 19:01 | XMS REPORT | Continuity of Care Document ---
:1940 Author Organization [facility] t Address [address] [place] [address] Care Team Providers Name Role Phone Brayden Robles Attending Clinician Unavailable Payers Payer Name Policy Type Policy Number Effective Date Expiration Date S our [employer] MEDICARE 53 [id number] Common Sp henrik [facility] Problems Condition Condition Condition Status Onset Resolution Last Treating Co mments Source Name Details Category Date Date Treatment Clinician Date [id number] Urinary Problem Commo n incontinen Spirit ce, - [facility] unspecifie [facility] [id number] BPH loc w Problem Com mon urin Spirit obs/LUTS [facility] [id number] Incomplete Problem Co mmon emptying Spirit of bladder [facility] [id number] Elevated Problem Comm on PSA [facility] [id number] Recurrent Problem Com mon UTI [facility] [id number] Feeling of Problem Co mmon incomplete [facility] bladder - [facility] emptying [facility] [id number] 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 Social History Social Habit Start Date Stop Date Quantity Comments Source Sex Assigned At Com mon [facility] History of Tobacco Use Co mmon [facility] Medications Ordered Filled Start Stop Current Ordering Indication Dosage Frequency Signature Comments Components Source Medication Medication Date Date Medication? Clinician (SIG) Name Name Nitrofurant Nitrofurant 2021- No 1{capsu QD Nitrofuran oin Monohyd oin Monohyd 03-18 le_with toin Macro 100 Macro 100 00:00: 00:00 _food} Monohyd MG MG 00 :00 Macro 100 MG Nitrofurant Nitrofurant 2021- No 1{capsu QD Nitrofuran oin Monohyd oin Monohyd 03-18 le_with toin Macro 100 Macro 100 00:00: 00:00 _food} Monohyd MG MG 00 :00 Macro 100 MG Nitrofurant Nitrofurant 2021- No 1{capsu QD Nitrofuran oin Monohyd oin Monohyd 03-18 le_with toin Macro 100 Macro 100 00:00: 00:00 _food} Monohyd MG MG 00 :00 Macro 100 MG Flomax 0.4 Flomax 0.4 2021- No 1{capsu QD Flomax 0.4 MG MG 5-08-03 le} MG 00:00: 00:00 00 :00 Flomax 0.4 Flomax 0.4 2021- No 1{capsu QD Flomax 0.4 MG MG 5-08-03 le} MG 00:00: 00:00 00 :00 Flomax 0.4 Flomax 0.4 2021- No 1{capsu QD Flomax 0.4 MG MG 5-08-03 le} MG 00:00: 00:00 00 :00 Flomax 0.4 Flomax 0.4 2021- No 1{capsu QD Flomax 0.4 MG MG 5-08-03 le} MG 00:00: 00:00 00 :00 Trileptal [...] t} n Sodium MG MG 40 MG Aricept 10 Aricept 10 No 1{table QD Aricept 10 MG MG t_at_be MG dtime} Pravastatin Pravastatin No 1{table QD Pravastati Sodium 40 Sodium 40 t} n Sodium MG MG 40 MG Losartan Losartan No 1{table QD Losartan Potassium Potassium t} Potassium 100 MG 100 MG 100 MG Trileptal Trileptal No 1{table BID Trileptal 300 MG 300 MG t} 300 MG Memantine Memantine No 1{table BID Memantine HCl 10 MG HCl 10 MG t} HCl 10 MG amLODIPine amLODIPine No 1{table QD amLODIPine Besylate 10 Besylate 10 t} Besylate MG MG 10 MG Loratadine Loratadine No 1{table QD Loratadine 10 MG 10 MG t} 10 MG Trileptal Trileptal No 1{table BID Trileptal 300 [...] t} n Sodium MG MG 40 MG Loratadine Loratadine No 1{table QD Loratadine 10 MG 10 MG t} 10 MG Aricept 10 Aricept 10 No 1{table QD Aricept 10 MG MG t_at_be MG dtime} Losartan Losartan No 1{table QD Losartan Potassium Potassium t} Potassium 100 MG 100 MG 100 MG amLODIPine amLODIPine No 1{table QD amLODIPine Besylate 10 Besylate 10 t} Besylate MG MG 10 MG Trileptal Trileptal No 1{table BID Trileptal 300 MG 300 MG t} 300 MG Pravastatin Pravastatin No 1{table QD Pravastati Sodium 40 Sodium 40 t} n Sodium MG MG 40 MG Memantine Memantine No 1{table BID Memantine HCl 10 MG HCl 10 MG t} HCl 10 MG Vital Signs Vital Name Observation Time Observation Value Comments Source height 2022-07-22 14:15:00 65 [in_i] [facility] weight 2022-07-22 14:15:00 161 [lb_av] [facility] temperature 2022-07-22 14:15:00 97.6 [degF] [facility] bmi 2022-07-22 14:15:00 26.79 kg/m2 [facility] oximetry 2022-07-22 14:15:00 96 % [facility] respiratory rate 2022-07-22 14:15:00 18 /min Comm on [facility] blood pressure 2022-07-22 14:15:00 126 mm[Hg] [facility] systolic [facility] blood pressure 2022-07-22 14:15:00 60 mm[Hg] [facility] diastolic [facility] height 2022-04-21 14:30:00 65 [in_i] [facility] weight 2022-04-21 14:30:00 145.4 [lb_av] [facility] temperature 2022-04-21 14:30:00 98.5 [degF] [facility] bmi 2022-04-21 14:30:00 24.19 kg/m2 [facility] oximetry 2022-04-21 14:30:00 91 % [facility] respiratory rate 2022-04-21 14:30:00 16 /min Comm on [facility] blood pressure 2022-04-21 14:30:00 123 mm[Hg] [facility] - systolic [facility] blood pressure 2022-04-21 14:30:00 59 mm[Hg] Common [facility] - diastolic [facility] Procedures This patient has no known procedures. Encounters Start End Encounter Admission Attending Care Care Encounter Source Date/Time Date/Time Type Type Clinicians Facility Department ID 2022-06-10 Outpatient Brayden Robles STJOSE M STLMLC [id number] Common 14:30:03 [facility] 2022-04-21 Outpatient Brayden Robles STJONATHAN STLMLC [id number] Common 13:20:02 [id number] [facility] 2022-07-22 2022-07-22 OFFICE STLMLC ST[facility]C [id number] Co mmon 00:00:00 00:00:00 VISIT EST Spir it PT LEVEL 3 - [facility] 2022-05-17 2022-05-17 (PROC) STLMLC ST[facility]C [id number] Co mmon 00:00:00 00:00:00 Procedure Spir it [facility] 2022-04-21 2022-04-21 (PROC) STLMLC ST[facility]C [id number] Co mmon 00:00:00 00:00:00 Procedure Spir [facility] Results This patient has no known results.
[2022-08-16 20:37] LABS: Urine Blood 1+ (Negative); Urine Glucose Negative (Negative); Urine Protein 1+ (Negative); Urine pH 7.5 (5.0-7.0)
[2022-08-16 20:46] LABS: Absolute Lymphocytes (CBC) 1.5 K/uL (0.7-4.9); Lymphocytes % 17.8 % (15.3-44.8); MCV 95.7 fL (80-100); MPV 7.9 fL (7.6-11.3); RBC Red Blood Cell Count 4.38 M/uL (4.33-5.43)
[2022-08-16 20:54] LABS: Protime INR 0.95
[2022-08-16 20:58] LABS: Urine Mucus Slight /HPF (None Seen); Urine RBC 21-50 /HPF (None Seen)
[2022-08-16 21:02] LABS: Potassium 3.8 mmol/L (3.5-5.1)
--- NOTE | 2022-08-16 21:37 | RAD REPORT ---
EXAM DESCRIPTION: CT - Head Brain Wo Cont - 08/16/2022 9:16 pm CLINICAL HISTORY: fall, AMS COMPARISON: Head Brain Wo Cont dated 06/26/2022; Head Brain Wo Cont dated 04/23/2020; Head C Spine Mp r Wo Con dated 06/01/2022 TECHNIQUE: All CT scans are performed using dose optimization technique as appropriate and may inclu de automated exposure control or mA/KV adjustment according to patient size. FINDINGS: No intracranial hemorrhage, hydrocephalus or extra-axial fluid collection.No areas of brai n edema or evidence of midline shift. Large remote left MCA territory infarcts. 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 On the right measures 6 millimeters. On the left measures approximately 7 millimeters. The paranasal sinuses and mastoids are clear. The calvarium is intact. IMPRESSION: No acute intracranial abnormality. Bilateral extra-axial near CSF attenuation collection s that are new and may represent either subacute/chronic subdural hematomas or hygromas.
--- NOTE | 2022-08-16 21:41 | RAD REPORT ---
EXAM DESCRIPTION: CTAbdomen Pelvis W Contrast - 08/16/2022 9:20 pm CLINICAL HISTORY: fall, abd pain, possible mcallister problem COMPARISON: Abdomen Pelvis W Contrast dated 05/30/2022; Head Brain Wo Cont dated 08/16/2022 TECHNIQUE: CT of the abdomen and pelvis was performed with IV contrast. All CT scans are performed using dose optimization technique as appropriate and may include automated exposure control or mA/KV adjustment according to patient size. FINDINGS: Lower chest: Cardiomegaly Liver: No acute abnormality or suspicious lesions. Biliary: No biliary ductal dilatation. Stomach: No significant focal abnormality. Duodenum: No significant focal abnormality. Duodenum diverticulum Pancreas: No significant abnormality. Spleen: No significant abnormality. Adrenal: No suspicious lesions. Kidney/ureter: No hydronephrosis. No renal calculi. Too small to characterize and/or benign appearing renal lesions are noted. Retroperitoneum: No retroperitoneal adenopathy. Vascular: No aneurysm. Atherosclerosis. Bowel: Large rectal stool burden.. No bowel obstruction. Peritoneum: No ascites or free air. Small fat containing right inguinal hernia Bladder: Pronounced circumferential bladder wall thickening which decompressed around a Mcallister cathete r. The bladder wall is hyperenhancing. Reproductive: No adnexal masses. Bones: No acute fracture. Other: n/a IMPRESSION: 1. Large rectal stool burden which may indicate fecal impaction. 2. Pronounced circumferential bladder wall thickening which may be secondary to chronic bladder outle t obstruction. Note that the bladder is decompressed via a Mcallister catheter. Hyperenhancement of the bl adder mucosa could indicate infection or inflammation.
--- NOTE | 2022-08-16 22:03 | EDPHYS ---
Physician Documentation [facility] Name: John Matias Age: 82 yrs Sex: Male : 1940 Arrival Date: 08/16/2022 Time: 19:07 Bed 5 Private MD: ED Physician Jose Johnson HPI: 08/16 19:25 This 82 yrs old Male presents to ER via EMS with complaints of mcallister catheter problem. rn 19:25 The patient presents with a Mcallister catheter problem, was pulled out accidentally. Onset: rn The symptoms/episode began/occurred yesterday. Modifying factors: The symptoms are alleviated by nothing, the symptoms are aggravated by nothing. Associated signs and symptoms: Pertinent negatives: fever, vomiting. Severity of symptoms: At their worst the symptoms were mild, in the emergency department the symptoms are unchanged. It is unknown whether or not the patient has had similar symptoms in the past. Pt brought by EMS, EMS reports that called for "mcallister catheter breaking". Unknown circumstances. Pt with previous stroke and communicative problems. also expressed to EMS that patient may have fallen or maybe not. No witnessed fall or trauma. . Historical: - PMHx: 19:08 CVA; Hypertension; Seizures; vc1 - Immunization history:: Adult Immunizations unknown. - Family history:: not pertinent. - Social history:: Smoking status: unknown. - Hospitalizations: : No recent hospitalization is reported. ROS: 19:25 Unable to obtain ROS due to previous stroke. rn Exam: 19:25 Constitutional: This is a well developed, well nourished patient who is awake, alert, rn continuously moaning "ow" Head/Face: Normocephalic, atraumatic. Cardiovascular: Regular rate and rhythm. No pulse deficits. Respiratory: No increased work of breathing, no retractions or nasal flaring. Abdomen/GI: Soft, non-tender Male : Mcallister catheter in place, but not connected to bag. Skin: Warm, dry MS/ Extremity: Pulses equal, no cyanosis. Neuro: Awake and alert, GCS 15 Vital Signs: 19:07 BP 152 / 75; Pulse 62; Temp 97; Pulse Ox 97% on R/A; vc1 20:30 BP 145 / 66; Pulse 59; Resp 12; Pulse Ox 98% on R/A; jb4 21:00 BP 120 / 65; Pulse 56; Resp 16; Pulse Ox 99% on R/A; jb4 22:53 BP 157 / 68; Pulse 69; Resp 16; Pulse Ox 100% on R/A; ll3 MDM: 19:08 Patient medically screened. rn 22:01 Differential diagnosis: UTI, urinary retention, Mcallister catheter problem, fecal rn impaction/retention. Data reviewed: vital signs, nurses notes, lab test result(s), radiologic studies, CT scan, and as a result, I will admit patient. Counseling: I had a detailed discussion with the patient and/or guardian regarding: the historical points, exam findings, and any diagnostic results supporting the discharge/admit diagnosis, lab results, radiology results, the need for further work-up and treatment in the hospital. Response to treatment: the patient's symptoms have mildly improved after treatment, and as a result, I will admit patient. Admission orders: after a detailed discussion of the patient's condition and case, the admit orders are written by me. ED course: Mcallister catheter replaced without evidence of retention, bag was just pulled off. Ct shows cystitis and fecal impaction. CT head shows either chronic subdural or hygromas, no acute intracranial abnormalities, no signs of acute trauma, and no witnessed head injury. Will admit here. . 08/16 19:10 Order name: Urine Culture 08/16 19:10 Order name: Urine Microscopic Only; Complete Time: 21:05 08/16 19:10 Order name: CBC with Diff; Complete Time: 21:05 08/16 19:10 Order name: Basic Metabolic Panel; Complete Time: 21:05 08/16 19:10 Order name: Protime (+inr); Complete Time: 21:05 08/16 19:10 Order name: Ptt, Activated; Complete Time: 21:05 08/16 19:10 Order name: CT Head Brain wo Cont; Complete Time: 21:57 08/16 19:10 Order name: CT Abd/Pelvis - IV Contrast Only; Complete Time: 21:57 08/16 20:37 Order name: Urine Dipstick-Ancillary; Complete Time: 21:05 [facility] 08/16 23:04 Order name: SARS RAPID mw2 08/17 00:01 Order name: SARS-COV-2 Antigen Rapid [facility] 08/16 19:10 Order name: Urine Dipstick-Ancillary (obtain specimen); Complete Time: 20:37 rn 08/16 19:10 Order name: Mcallister; Complete Time: 19:44 rn Administered Medications: 22:49 Drug: Rocephin (cefTRIAXone) 1 grams Route: IV; Rate: calculated rate; Site: right ll3 wrist; 22:50 Drug: Fleet Enema (sodium phosphate) 133 ml Route: CT; ll3 22:50 Drug: NS 0.9% 1000 ml Route: IV; Rate: 1000 ml; Site: right wrist; ll3 Disposition Summary: 08/16/22 22:03 Hospitalization Ordered Hospitalization Status: Observation rn Provider: Markel Vo rn Condition: Stable rn Problem: new rn Symptoms: have improved rn Bed/Room Type: Standard rn Location: Telemetry/MedSurg (observation)(08/17/22 13:51) ja1 Room Assignment: [facility](08/17/22 13:51) ja Diagnosis - UTI/ Urinary tract infection, site not specified rn - Fecal impaction rn Forms: - Medication Reconciliation Form rn - SBAR form rn Signatures: Dispatcher [employer] EDKS Jose Johnson MD MD rn Garcia, Cindy RN Nico Han RN RN [email or web address] Shan Parra RN RN ja1 Reid Higginbotham RN RN ll3 Mel Mercado, RN RN vc1 Corrections: (The following items were deleted from the chart) 23:03 22:03 Telemetry/MedSurg (observation) rn 23:03 22:03 rn bhargavi 08/17 13:51 08/16 23:[address] [facility] ER HOLD ja1 08/17 13:51 08/16 23:03 ERHOLD- ja1
--- NOTE | 2022-08-16 22:03 | ER ---
Nurse's Notes [facility] [place] Name: John Matias Age: 82 yrs Sex: Male : 1940 Arrival Date: 08/16/2022 Time: 19:07 Bed 5 Private MD: Diagnosis: UTI/ Urinary tract infection, site not specified;Fecal impaction Presentation: 08/16 19:07 Chief complaint: EMS states: " called us saying he was screaming in pain, when we vc1 arrived she said he may have fell yesterday but we couldn't get a clear answer.". Ebola Screen: No symptoms or risks identified at this time. Initial Sepsis Screen: Does the patient meet any 2 criteria? No. Patient's initial sepsis screen is negative. Does the patient have a suspected source of infection? No. Patient's initial sepsis screen is negative. Risk Assessment: Do you want to hurt yourself or someone else? Patient reports no desire to harm self or others. Onset of symptoms is unknown. 19:07 Method Of Arrival: EMS: [facility] vc1 19:07 Acuity: AGATHA 3 vc1 Triage Assessment: 19:09 General: Appears uncomfortable, Behavior is inappropriate for age, "Hollering Oww". vc1 Pain: Unable to use pain scale. Does not appear to understand pain scale. Hollering out in pain. Neuro: Level of Consciousness is awake, Oriented to person. Cardiovascular: No deficits noted. Respiratory: Airway is patent Respiratory effort is even, unlabored, Respiratory pattern is regular, symmetrical. GI: No deficits noted. : Lopez in place. Derm: No signs and/or symptoms reported regarding the dermatologic system. Musculoskeletal: No signs and/or symptoms reported regarding the musculoskeletal system. Historical: - PMHx: 19:08 CVA; Hypertension; Seizures; vc1 - Immunization history:: Adult Immunizations unknown. - Family history:: not pertinent. - Social history:: Smoking status: unknown. - Hospitalizations: : No recent hospitalization is reported. Screenin:08 Abuse screen: Denies threats or abuse. Nutritional screening: No deficits noted. vc1 Tuberculosis screening: No symptoms or risk factors identified. Fall Risk Fall in past 12 months (25 points). Secondary diagnosis (15 points) CVA, Mental Status- Overestimates/Forgets Limitations (15 pts.). Total Hoffman Fall Scale indicates High Risk Score (45 or more points). Fall prevention measures have been instituted. Assessment: 19:06 General: Appears in no apparent distress. comfortable, Behavior is calm, cooperative, jb4 appropriate for age. Pain: Unable to use pain scale. FLACC scale score is 8 out of 10. Neuro: Level of Consciousness is awake, alert, Oriented to unable to obtain pt unable to answer question.. Cardiovascular: Patient's skin is warm and dry. Respiratory: Airway is patent Respiratory effort is even, unlabored, Respiratory pattern is regular, symmetrical. GI: No signs and/or symptoms were reported involving the gastrointestinal system. : No signs and/or symptoms were reported regarding the genitourinary system. EENT: No signs and/or symptoms were reported regarding the EENT system. Derm: Skin is pink, warm \\T\\ dry. Decubitus located on right sacrum approximately 1.5 cm to 2.5 cm. Musculoskeletal: Circulation, motion, and sensation intact. Range of motion: intact in all extremities. 20:15 Reassessment: Patient appears in no apparent distress at this time. No changes from jb4 previously documented assessment. Patient and/or family updated on plan of care and expected duration. Pain level reassessed. 21:15 Reassessment: Patient appears in no apparent distress at this time. No changes from jb4 previously documented assessment. Patient and/or family updated on plan of care and expected duration. Pain level reassessed. 22:15 Reassessment: Patient appears in no apparent distress at this time. No changes from jb4 previously documented assessment. Patient and/or family updated on plan of care and expected duration. Pain level reassessed. 23:46 Reassessment: Patient appears in no apparent distress at this time. Patient and/or jb4 family updated on plan of care and expected duration. Pain level reassessed. Pt continues to scream has had 3 bowel movements after enema. pt cleaned and linens changed. Vital Signs: 19:07 BP 152 / 75; Pulse 62; Temp 97; Pulse Ox 97% on R/A; vc1 20:30 BP 145 / 66; Pulse 59; Resp 12; Pulse Ox 98% on R/A; jb4 21:00 BP 120 / 65; Pulse 56; Resp 16; Pulse Ox 99% on R/A; jb4 22:53 BP 157 / 68; Pulse 69; Resp 16; Pulse Ox 100% on R/A; ll3 ED Course: 19:07 Patient arrived in ED. vc1 19:08 Jose Johnson MD is Attending Physician. rn 19:08 Triage completed. vc1 19:10 Patient has correct armband on for positive identification. Report received from EMS.vc1 20:37 Protime (+inr) Sent. jb4 20:37 Ptt, Activated Sent. jb4 20:37 CBC with Diff Sent. jb4 20:37 Basic Metabolic Panel Sent. jb4 20:37 Urine Culture Sent. jb4 20:37 Urine Microscopic Only Sent. jb4 21:18 CT Head Brain wo Cont In Process Unspecified. EDMS 21:22 CT Abd/Pelvis - IV Contrast Only In Process Unspecified. EDMS 22:02 Markel Vo MD is Hospitalizing Provider. rn 23:46 Nico Nunez, RN is Primary Nurse. jb4 23:48 No provider procedures requiring assistance completed. Patient admitted, IV remains in jb4 place. Administered Medications: 22:49 Drug: Rocephin (cefTRIAXone) 1 grams Route: IV; Rate: calculated rate; Site: right ll3 wrist; 22:50 Drug: Fleet Enema (sodium phosphate) 133 ml Route: AZ; ll3 22:50 Drug: NS 0.9% 1000 ml Route: IV; Rate: 1000 ml; Site: right wrist; ll3 Outcome: 22:03 Decision to Hospitalize by Provider. rn 08/17 00:55 Admitted to ER Hold. Please see [facility] for further documentation. jb4 Condition: stable Discharge instructions given to family, Instructed on the need for admit. 16:24 Patient left the ED. iw Signatures: Dispatcher [employer] EDMS Candi Lange RN RN iw Nieto, Roman, MD MD rn Bryson, James, RN RN jb4 Reid Higginbotham RN RN ll3 Mel Mercado RN RN vc1 Corrections: (The following items were deleted from the chart) 08/16 23:47 23:15 Reassessment: Patient appears in no apparent distress at this time. No changes jb4 from previously documented assessment. Patient and/or family updated on plan of care and expected duration. Pain level reassessed. jb4
[2022-08-16] MEDS ORDERED: CEFTRIAXONE 1000 MG/VIAL ONE (22:42)
[2022-08-16] MEDS ORDERED: NA CHLORIDE 0.9% 1,000 ML ONE (22:42)
[2022-08-16] MEDS ORDERED: FLEET ENEMA ADULT PR ONE (22:42)
--- NOTE | 2022-08-16 22:42 | P.HP ---
Certification for Inpatient Patient admitted to: Observation With expected LOS: <2 Midnights Patient will require the following post-hospital care: None Practitioner: I am a practitioner with admitting privileges, knowledge of patient current condition, hospital course, and medical plan of care. Services: Services provided to patient in accordance with Admission requirements found in Title 42 Section 412.3 of the Code of Federal Regulations Patient History Date of Service: 08/16/22 Reason for admission: UTI/AMS History of Present Illness: Patient is an 81-year-old male with advanced dementia, and BPH with indwelling Lopez catheter who was brought to the emergency department due to complaint of pain in the Lopez. Patient has a history of CVAs and nonverbal. The tubing was somehow torn and not properly connected to the bag therefore unhooked it and tucked it into his brief. Urine has been leaking into his brief for [address] abdomen pelvis showed "Pronounced circumferential bladder wall thickening which may be secondary to chronic bladder outlet obstruction. Note that the bladder is decompressed via a Lopez catheter. Hyperenhancement of the bladder mucosa could indicate infection or inflammation." Head CT is negative. His UA suggests UTI. Lopez catheter was replaced in the ED and he was given rocephin. He is admitted for further management. Allergies No Known Allergies Allergy (Verified 08/24/14 23:15) Home Medications: Oxcarbazepine 1 tab PO BID 09/13/15 Pravastatin Sodium 1 tab PO BEDTIME 09/13/15 Amlodipine Besylate 2 tab PO DAILY 04/19/16 Loratadine 1 tab PO DAILY 04/19/16 Donepezil HCl 1 tab PO DAILY 05/20/22 Losartan Potassium [Cozaar] 1 tab PO DAILY 05/20/22 Memantine HCl 10 mg PO BID 05/20/22 Tamsulosin [Flomax*] 1 tab PO BEDTIME 05/20/22 Aspirin Chewable [Aspirin Chewable*] 81 mg PO DAILY #30 tab.chew 05/25/22 Cefdinir [Cefdinir*] 300 mg PO BID 7 Days #14 cap 06/28/22 - Past Medical/Surgical History Diabetic: No -: HTN -: CVA, residual facial droop -: DIVERTICULITIS -: Expressive dysphasia -: Seizures -: BPH -: COLON RESECTION Psychosocial/ Personal History: Patient lives at home with his . - Family History Family History: Reviewed- Non-Contributory - Social History Smoking Status: Never smoker Alcohol use: No CD- Drugs: No Caffeine use: Yes Place of Residence: Home Review of Systems is unable to be obtained Physical Examination - Vital Signs Temperature: 97 F Blood Pressure: 152/75 Pulse: 62 Respirations: 18 Pulse Ox (%): 97 (room air) - Physical Exam General: Demented, Confused HEENT: Atraumatic, PERRLA, EOMI Neck: Supple, JVD not distended Respiratory: Clear to auscultation bilaterally, Normal air movement Cardiovascular: Regular rate/rhythm, Normal S1 S2 Gastrointestinal: Normal bowel sounds, No tenderness Musculoskeletal: No tenderness Integumentary: No rashes Neurological: Sensation intact, Abnormal speech, Dementia Urinary: Lopez catheter - Studies Laboratory Data (last 24 hrs) 08/16/22 20:25: PT 10.4, INR 0.95, APTT 28.8 08/16/22 20:25: Sodium 137, Potassium 3.8, BUN 16, Creatinine 1.05, Glucose 98 08/16/22 20:25: WBC 8.40, Hgb 13.8, Hct 42.0, Plt Count 304 Assessment and Plan - Problems (Diagnosis) (1) UTI (urinary tract infection) Current Visit: Yes Status: Acute Qualifiers: Urinary tract infection type: catheter-associated UTI Indwelling urinary catheter type: indwelling urethral catheter Encounter type: initial encounter Qualified Code(s): T83.511A - Infection and inflammatory reaction due to indwelling urethral catheter, initial encounter; N39.0 - Urinary tract infection, site not specified (2) Dementia Current Visit: Yes Status: Chronic Qualifiers: Dementia type: unspecified type Dementia severity: unspecified severity Dementia behavioral or psychological symptom: with agitation Qualified Code(s): F03.911 - Unspecified dementia, unspecified severity, with agitation (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 Lopez catheter changed in the ED. IV antibiotic-Levaquin and ampicillin based on previous urine culture results. Follow urine culture. Received fleet enema in ED. Continue colace daily for constipation. Continue other home medications including antiepileptics. Fall and seizure precautions. Diet as tolerated. Monitor and replete electrolytes per protocol. Full code. Discharge Plan: Home Plan to discharge in: 24 Hours - Advance Directives Does patient have a Living Will: No Does patient have a Durable POA for Healthcare: No - Code Status/Comfort Care Code Status Assessed: Yes Code Status: Full Code Physician Review: Patient Assessed, Agree with Above Assessment and Plan Critical Care: No Time Spent Managing Pts Care (In Minutes): 50
[2022-08-16] MEDS ORDERED: QUETIAPINE 25 MG TAB PO ONE (23:17)
[2022-08-16] MEDS ORDERED: ACETAMINOPHEN 325 MG TABLET PO PRN (23:54)
[2022-08-16] MEDS ORDERED: ONDANSETRON 4 MG/2 ML VIAL IV PRN (23:54)
[2022-08-17 00:01] LABS: SARS-CoV-2 Antigen Rapid Res Negative (Negative)
[2022-08-17] MEDS ORDERED: QUETIAPINE 25 MG TAB ONE (00:08)
[2022-08-17] MEDS ORDERED: ZIPRASIDONE MESYLA 20 MG/VIAL IM ONE (00:17)
[2022-08-17] MEDS ORDERED: WATER FOR INJ,STERILE 10 ML IM PRN (00:17)
[2022-08-17 00:58] VITALS: BMI 17.2
[2022-08-17] MEDS ORDERED: Levofloxacin 750mg IV 750 MG/150 ML BAG IV SCH (09:00)
[2022-08-17] MEDS ORDERED: Levofloxacin 750mg IV 750 MG/150 ML BAG IV ONE (09:15)
--- NOTE | 2022-08-17 18:41 | P.PN ---
Subjective Date of Service: 08/17/22 Chief Complaint: UTI/AMS Patient is awake but confused. He is not able to give any subjective complaint. Physical Examination - Vital Signs Temperature: 98.0 F Blood Pressure: 153/72 Pulse: 64 Respirations: 16 Pulse Ox (%): 98 - Studies Laboratory Data (last 24 hrs) 08/16/22 20:25: PT 10.4, INR 0.95, APTT 28.8 08/16/22 20:25: Sodium 137, Potassium 3.8, BUN 16, Creatinine 1.05, Glucose 98 08/16/22 20:25: WBC 8.40, Hgb 13.8, Hct 42.0, Plt Count 304 Assessment And Plan - Current Problems (Diagnosis) (1) BPH (benign prostatic hyperplasia) Current Visit: Yes Status: Acute (2) UTI (urinary tract infection) Current Visit: Yes Status: Acute Qualifiers: Urinary tract infection type: catheter-associated UTI Indwelling urinary catheter type: indwelling urethral catheter Encounter type: initial encounter Qualified Code(s): T83.511A - Infection and inflammatory reaction due to indwelling urethral catheter, initial encounter; N39.0 - Urinary tract infection, site not specified (3) Dementia Current Visit: Yes Status: Chronic Qualifiers: Dementia type: unspecified type Dementia severity: unspecified severity Dementia behavioral or psychological symptom: with agitation Qualified Code(s): F03.911 - Unspecified dementia, unspecified severity, with agitation (4) 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 Plan: Continue current antibiotics. Lopez catheter inserted and maintained. Follow urine culture. Continue tamsulosin for BPH. Resume home medications for hypertension. Continue home medications for seizures. Fall and seizure precautions.
[2022-08-17] MEDS: ENOXAPARIN 40 MG/0.4 ML SQ SCH (19:59)
[2022-08-17] MEDS: MEMANTINE HCL 10 MG TABLET PO SCH (20:00)
[2022-08-17] MEDS: OXcarbazepine 150 MG TAB PO SCH (20:00)
[2022-08-17] MEDS ORDERED: ATORVASTATIN 10 MG TAB PO SCH (21:00)
[2022-08-17] MEDS ORDERED: DONEPEZIL HCL 5 MG TAB PO SCH ×2 (21:00)
[2022-08-17] MEDS ORDERED: OXCARBAZEPINE 300 MG PO SCH (21:00)
[2022-08-17] MEDS ORDERED: TAMSULOSIN 0.4 MG SR CAP PO SCH (21:00)
[2022-08-17] MEDS ORDERED: HOME MED 1 EA UNK (Pravastatin Sodium [Pravastatin Sodium] 40 MG Tablet) PO SCH (21:00)
[2022-08-18] MEDS ORDERED: HALOPERIDOL LACT 5 MG/ML INJ IV PRN (03:44)
[2022-08-18 08:48] LABS: Albumin 2.7 g/dL (3.4-5.0); Bilirubin Total 0.6 mg/dL (0.2-1.0); Magnesium 2.1 mg/dL (1.6-2.4); Potassium 3.4 mmol/L (3.5-5.1); Protein, Total 5.8 g/dL (6.4-8.2)
[2022-08-18] MEDS ORDERED: AMLODIPINE 10 MG TAB PO SCH (09:00)
[2022-08-18] MEDS ORDERED: HOME MED 1 EA UNK (Losartan Potassium [Cozaar] 100 MG Tablet) PO SCH (09:00)
[2022-08-18] MEDS ORDERED: HOME MED 1 EA UNK (Donepezil Hcl [Donepezil Hcl] 10 MG Tablet) PO SCH (09:00)
[2022-08-18] MEDS ORDERED: LOSARTAN POTASSIUM 50 MG TABLET PO SCH (09:00)
[2022-08-18] MEDS ORDERED: LORATADINE 10 MG TAB PO SCH (09:00)
[2022-08-18] MEDS ORDERED: POTASSIUM 25 MEQ EFFERV TAB PO ONE (09:46)
[2022-08-18] MEDS: OXcarbazepine 150 MG TAB PO SCH (09:47)
[2022-08-18] MEDS: MEMANTINE HCL 10 MG TABLET PO SCH (09:48)
[2022-08-18] MEDS: ENOXAPARIN 40 MG/0.4 ML SQ SCH (09:49)
[2022-08-18 12:04] VITALS: O2SAT 97
--- NOTE | 2022-08-18 16:29 | P.DS ---
Admission Date: 08/16/22 Discharge Date: 08/18/22 Disposition: ROUTINE DISCHARGE Discharge Condition: FAIR Reason for Admission: UTI/AMS - Problems (1) BPH (benign prostatic hyperplasia) Current Visit: Yes Status: Acute (2) UTI (urinary tract infection) Current Visit: Yes Status: Acute Qualifiers: Urinary tract infection type: catheter-associated UTI Indwelling urinary catheter type: indwelling urethral catheter Encounter type: initial encounter Qualified Code(s): T83.511A - Infection and inflammatory reaction due to indwelling urethral catheter, initial encounter; N39.0 - Urinary tract infecti on, site not specified (3) Dementia Current Visit: Yes Status: Chronic Qualifiers: Dementia type: unspecified type Dementia severity: unspecified severity Dementia behavioral or psychological symptom: with agitation Qualified Code (s): F03.911 - Unspecified dementia, unspecified severity, with agitation (4) 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 Patient has a history of CVAs and nonverbal. The tubing was somehow torn and not properly connected to the bag therefore unhooked it and tucked it into his brief. Urine has been leaking into his brief for [address] abdomen pelvis showed "Pronounced circumferential bladder wall t hickening which may be secondary to chronic bladder outlet obstruction. Note that the bladder is decompressed via a Lopez catheter. Hyperenhancement of the bladder mucosa could indicate infection or inflammation." Head CT was negative. His UA suggested UTI. Lopez catheter was replaced in the ED and he was given rocephin. Patient admitted for further management. Hospital Course: Patient treated with IV Rocephin. Urine culture yielded mixed growth. Patient with baseline dementia with cognitive deficit and intermittent agitation. He was at baseline mental status. He has no leukocytosis. CT scan of the abdomen demonstrated bladder wall thickening. Patient will therefore be treated for UTI with Levaquin and nitrofurantoin based on prior urine culture results. Patient is clinically stable for discharge. Vital Signs/Physical Exam: Temp Pulse Resp BP Pulse Ox 97.5 F 67 16 151/63 H 100 08/18/22 12:00 08/18/22 12:00 08/18/22 12:00 08/18/22 12:00 08/18/22 12:00 General: In no apparent distress, Other (Dementia) Neck: JVD not distended Respiratory: Clear to auscultation bilaterally, Normal air movement Cardiovascular: No edema, Regular rate/rhythm, Normal S1 S2 Gastrointestinal: Soft and benign, Non-distended Musculoskeletal: No swelling Neurological: Dementia Laboratory Data at Discharge: WBC 8.40 K/uL (4.3-10.9) 08/16/22 20:25 Hgb 13.8 g/dL (13.6-17.9) 08/16/22 20:25 Hct 42.0 % (39.6-49.0) 08/16/22 20:25 Plt Count 304 K/uL (152-406) 08/16/22 20:25 PT 10.4 SECONDS (9.5-12.5) 08/16/22 20:25 INR 0.95 08/16/22 20:25 APTT 28.8 SECONDS (24.3-36.9) 08/16/22 20:25 Sodium 138 mmol/L (136-145) 08/18/22 08:16 Potassium 4.0 mmol/L (3.5-5.1) D 08/18/22 15:34 BUN 16 mg/dL (7-18) 08/18/22 08:16 Creatinine 0.97 mg/dL (0.70-1.30) 08/18/22 08:16 Glucose 146 mg/dL (74-106) H 08/18/22 08:16 Phosphorus 3.0 mg/dL (2.5-4.9) 08/18/22 08:16 Magnesium 2.1 mg/dL (1.6-2.4) 08/18/22 08:16 Total Bilirubin 0.6 mg/dL (0.2-1.0) 08/18/22 08:16 AST 11 U/L (15-37) L 08/18/22 08:16 ALT 13 U/L (16-61) L 08/18/22 08:16 Alkaline Phosphatase 91 U/L (45-117) 08/18/22 08:16 Home Medications: Oxcarbazepine 1 tab PO BID 01/09/16 Pravastatin Sodium 1 tab PO BEDTIME 09/13/15 Amlodipine Besylate 2 tab PO DAILY 04/19/16 Loratadine 1 tab PO DAILY 04/19/16 Donepezil HCl 1 tab PO DAILY 05/20/22 Losartan Potassium [Cozaar] 1 tab PO DAILY 05/20/22 Memantine HCl 10 mg PO BID 05/20/22 Tamsulosin [Flomax*] 1 tab PO BEDTIME 05/20/22 Ensure Enlive 237 ml PO BID #30 can 08/18/22 Bobby [Bobby*] 1 pkt PO BID #30 packet 08/18/22 Nitrofurantoin Monohyd/M-Cryst [Nitrofurantoin [place]-Mcr 100 mg] 100 mg PO DAILY #7 tab 08/18/22 levoFLOXacin [Levaquin*] 750 mg PO Q48H #7 tab 08/18/22 New Medications: Ensure Enlive 237 ml PO BID #30 can Bobby [Bobby*] 1 pkt PO BID #30 packet levoFLOXacin [Levaquin*] 750 mg PO Q48H #7 tab Nitrofurantoin Monohyd/M-Cryst [Nitrofurantoin [place]-Mcr 100 mg] 100 mg PO DAILY #7 tab Diet: AHA Activity: Fall precautions
[2022-08-18 17:28] VITALS: BP 143/66; TEMP 97.9
[2022-08-18] MEDS ORDERED: ENSURE ENLIVE 237 ML CAN PO SCH (21:00)
[2022-08-18] MEDS ORDERED: JUVEN PACKET PO SCH (21:00)
[2022-08-19] MEDS ORDERED: levoFLOXacin 750 MG TAB PO SCH (09:00)
== END 2022-08-18 18:05 | disposition home or self-care (01) ==
LOC: ER 18:58 → ERHOLD 22:50 → 2ND 08-17 15:59
PROVIDERS: ADMIT Internal Medicine; ATTEND Internal Medicine
DX: N39.0 Urinary tract infection, site not specified (principal); T83.511A Infection and inflammatory reaction due to indwelling urethral catheter, initial encounter; N40.0 Benign prostatic hyperplasia without lower urinary tract symptoms; F03.911 Unspecified dementia, unspecified severity, with agitation; K59.09 Other constipation; I10 Essential (primary) hypertension; R33.9 Retention of urine, unspecified; E78.5 Hyperlipidemia, unspecified; R56.9 Unspecified convulsions; Z20.822 Contact with and (suspected) exposure to COVID-19; Z86.73 Personal history of transient ischemic attack (TIA), and cerebral infarction without residual deficits
CPT/HCPCS: 87088; 85025; 87086; 80048; 36415 ×2; 83735; 84100; 84132; 85610; 85730; 80053; 70450; 74177; 96374; 99285; 87811; Q9967; J1630; J1650 ×2; J3486; J7030; 81003; 81015; 87077; 87186; G0378